=== PATIENT | female | born 1965 | race Caucasian/White ===

== ENCOUNTER 2017-07-18 15:47 | Emergency (ER) | payer OTHER, MEDICARE ==
[~2017-07-18] VITALS: Ht 185.4 cm; Wt 124.0 kg
[~2017-07-18 15:47] MED LIST: ALDACTONE25 MG PO; ALPR.25T PO; CETI5TAB25 PO; DESV50TA PO; DULO30CA PO; FLUT16SP22 NS; GABA300C; GBPN300C PO; GENOVIA; HYDR50CA3; INSU100I16 SQ; LISI10TA PO; LOVA40TA45; METF-380; MONT10TA21 PO; MTF500T PO; NF-ESOM40C PO; NF-VAL40T PO; SRTR100T
--- OUTSIDE RECORDS SUMMARY | 2017-07-18 15:53 | XMS REPORT ---
Author Author Bacilio Ga [facility] eClinicalWorks Address Unknown Phone Unavailable Care Team Providers Care Meat Sales And Storage Manager Name Role Phone Bacilio Ga CP Unavailable Allergies No Known Allergies Problems Problem Type Condition Code Onset Dates Condition Status Problem Esophageal reflux K21.9 Active Problem Anxiety F41.9 Active Problem Asthma J45.909 Active Assessment Diabetes type 1, uncontrolled E10.65 Active Problem Hypertension I10 Active Problem Dermatophytoses B35.9 Active Problem Diabetes type 1, uncontrolled E10.65 Active Problem Borderline personality disorder F60.3 Active Problem HLD (hyperlipidemia) E78.5 Active Problem JULIA (obstructive sleep apnea) G47.33 Active Problem Bipolar 1 disorder F31.9 Active Medications Medication Code System Code Instructions Start Date End Date Status Dosage Albuterol NDC 0 90 MCG/ACT Inhalation not defined Lantus SoloStar [facility] [address]-37 100 UNIT/ML Subcutaneous once daily use to inject 80 units NovoLog Flexpen [facility] [address]-49 100 UNIT/ML Subcutaneous three times daily Feb 26, 2015 per sliding scale with max of 20 units per injection Diovan HCT [facility] [address]-60 160-25 MG Orally Once a day 1 tablet Diabetic.[email or web address] Test [facility] [address]-31 1 Pack In Vitro PRN Dec 20, 2014 as directed Nexium [facility] [address]-24 40 MG Orally Once a day October 05, 2014 1 capsule HydrOXYzine HCl [facility] [address]-29 25 MG Orally three times a day 1 tablet Spironolactone [facility] [address]-02 25 MG Orally Twice a day 1 tablet Diabetic Sterile Lancets NDC 0 1 Pack in vitro PRN Dec 20, 2014 as directed Results No Known Results Summary Purpose eClinicalWorks Submission
--- OUTSIDE RECORDS SUMMARY | 2017-07-18 15:53 | XMS REPORT ---
Author Author Bacilio Ga Organization eClinicalWorks Address Unknown Phone Unavailable Care Team Providers Care Kennel Aide Name Role Phone Bacilio Ga CP Unavailable Allergies No Known Allergies Problems Problem Type Condition Code Onset Dates Condition Status Problem Esophageal reflux K21.9 Active Problem Anxiety F41.9 Active Problem Asthma J45.909 Active Assessment Anxiety F41.9 Active Problem Hypertension I10 Active Problem Dermatophytoses B35.9 Active Problem Diabetes type 1, uncontrolled E10.65 Active Problem Borderline personality disorder F60.3 Active Problem HLD (hyperlipidemia) E78.5 Active Problem JULIA (obstructive sleep apnea) G47.33 Active Problem Bipolar 1 disorder F31.9 Active Medications Medication Code System Code Instructions Start Date End Date Status Dosage NovoLog Flexpen [facility] [address]-88 100 UNIT/ML Subcutaneous 3 times daily as needed with sliding scale Oct 13, 2014 as directed [email or web address] Test [facility] [address]-59 1 Pack In Vitro PRN Dec 20, 2014 as directed Spironolactone [facility] [address]-37 25 MG Orally Twice a day 1 tablet HydrOXYzine HCl [facility] [address]-62 25 MG Orally three times a day 1 tablet Lantus SoloStar [facility] [address]-59 100 UNIT/ML Subcutaneous once daily use to inject 80 units Diabetic Sterile Lancets NDC 0 1 Pack in vitro PRN Dec 20, 2014 as directed Nexium [facility] [address]-21 40 MG Orally Once a day October 05, 2014 [address] [place] [address]-05 160-25 MG Orally Once a day 1 tablet Albuterol ND 0 90 MCG/ACT Inhalation not defined Results No Known Results Summary Purpose eClinicalWorks Submission
--- OUTSIDE RECORDS SUMMARY | 2017-07-18 15:53 | XMS REPORT ---
Author Author Bacilio Ga Organization eClinicalWorks Address Unknown Phone Unavailable Care Team Providers Care Nip Wrapper Name Role Phone Bacilio Ga CP Unavailable [...] Instructions Start Date End Date Status Dosage Diabetic.com Test [facility] [address]-70 1 Pack In Vitro PRN Dec 20, 2014 as directed Lantus SoloStar [facility] [address]-35 100 UNIT/ML Subcutaneous once daily use to inject 80 units NovoLog Flexpen [facility] [address]-62 100 UNIT/ML Subcutaneous 3 times daily as needed with sliding scale Oct 13, 2014 as directed HydrOXYzine HCl [facility] 54167399375 25 MG TAKE ONE TABLET BY MOUTH THREE TIMES DAILY Diabetic Sterile Lancets NDC 0 1 Pack in vitro PRN Dec 20, 2014 as directed Spironolactone [facility] [address]-45 25 MG Orally Twice a day 1 tablet Diovan HCT [facility] [address]-12 160-25 MG Orally Once a day 1 tablet Nexium [facility] [address]-95 40 MG Orally Once a day October 05, 2014 1 capsule Albuterol ND 0 90 MCG/ACT Inhalation not defined Results No Known Results Summary Purpose eClinicalWorks Submission
--- OUTSIDE RECORDS SUMMARY | 2017-07-18 15:53 | XMS REPORT ---
Author Author Bacilio Ga [facility] eClinicalWorks Address Unknown Phone Unavailable Care Team Providers Care Mental Health Social Worker Name Role Phone Bacilio Ga CP Unavailable Allergies No Known Allergies Problems Problem Type Condition Code Onset Dates Condition Status Problem Esophageal reflux K21.9 Active Problem Anxiety F41.9 Active Problem Asthma J45.909 Active Problem Hypertension I10 Active Problem Dermatophytoses B35.9 Active Problem Diabetes type 1, uncontrolled E10.65 Active Problem Borderline personality disorder F60.3 Active Problem HLD (hyperlipidemia) E78.5 Active Problem JULIA (obstructive sleep apnea) G47.33 Active Problem Bipolar 1 disorder F31.9 Active Medications No Known Medications Results No Known Results Summary Purpose eClinicalWorks Submission
--- OUTSIDE RECORDS SUMMARY | 2017-07-18 15:53 | XMS REPORT | Clinical Summary ---
Author [facility] Address Unknown Phone Unavailable Care Team Providers Care Sharepoint Engineer Name Role Phone PP Unavailable Allergies Active Allergy Reactions Severity Noted Date Comments Cephalexin Rash Low 10/29/2010 Doxycycline Rash Low 10/29/2010 Sumatriptan Base Shortness Of Breath High 10/29/2010 Penicillins Anaphylaxis High 10/29/2010 Current Medications Prescription Sig. Disp. Refills Start End Date Status Date spironolactone Take 25 mg by mouth 2 10/30/19 Active (ALDACTONE) 25 MG tablet (two) times daily. 11 omeprazole (PRILOSEC) 20 Take 20 mg by mouth 2 10/30/19 Active MG capsule (two) times daily before 11 meals. montelukast (SINGULAIR) Take 10 mg by mouth 10/30/19 Active 10 MG tablet daily. 11 losartan (COZAAR) 50 MG Take 25 mg by mouth 10/30/19 Active tablet daily. 11 metformin (GLUCOPHAGE) Take 500 mg by mouth 2 10/30/19 Active 500 MG tablet (two) times daily with 11 meals. gabapentin (NEURONTIN) Take 300 mg by mouth 2 10/30/19 Active 300 MG capsule (two) times daily. 11 cetirizine (ZYRTEC) 10 MG Take 10 mg by mouth 10/30/19 Active tablet daily. 11 Cholecalciferol (VITAMIN Take 4 tablets by mouth 30 tablet 0 12/05/19 Active D) 1000 UNIT TABS daily. 11 Active Problems Problem Noted Date Bipolar affective disorder, manic (HCC) 10/30/2010 PTSD (post-traumatic stress disorder) 10/30/2010 DM (diabetes mellitus), type 2 (HCC) 10/30/2010 Neuropathy in diabetes (HCC) 10/30/2010 GERD (gastroesophageal reflux disease) 10/30/2010 HTN (hypertension) 10/30/2010 Asthma 10/30/2010 Obesity 10/30/2010 Wounds and injuries 10/30/2010 Resolved Problems Problem Noted Date Resolved Date Suicidal ideation 10/30/2010 11/05/2010 Social History Tobacco Use Types Packs/Day Years Used Date Never Smoker Alcohol Use Drinks/Week oz/Week Comments Yes 0 Glasses of 9.6 wine 0 Cans of beer 16 Shots of liquor Sex Assigned at Date Recorded Not on file Last Filed Vital Signs Vital Sign Reading Time Taken Blood Pressure 115/57 12/03/2010 6:00 AM CDT Pulse 67 12/03/2010 6:00 AM CDT Temperature 36.8 C (98.3 F) 12/03/2010 6:00 AM CDT Respiratory Rate 16 12/03/2010 6:00 AM CDT Oxygen Saturation 99% 10/29/2010 7:00 PM CDT Inhaled Oxygen - - Concentration Weight 115.7 kg (255 lb) 12/01/2010 6:44 PM CDT Height 182.9 cm (6') 12/01/2010 6:44 PM CDT Body Mass Index 34.58 12/01/2010 6:44 PM CDT Plan of Treatment Health Maintenance Due Date Last Done Comments Hepatitis C Screening 1964 DTaP,Tdap,and Td Vaccines 07/10/1983 (1 - Tdap) CERVICAL CANCER SCREENING 1985 Breast Cancer 2014 Screening-Mammogram Colon Cancer Screening 2014 Zoster Recombinant 2014 Vaccine (RZV,Shingrix) (1 of 2 - [facility] 2 Dose Standard) Influenza Vaccine (Season 11/06/2017 Ended) Results Not on filefrom Last 3 Months
--- OUTSIDE RECORDS SUMMARY | 2017-07-18 15:53 | XMS REPORT ---
Author Author Glenny Oh [facility] eClinicalWorks Address Unknown Phone Unavailable Care Team Providers Care Cathode Maker Name Role Phone Glenny Oh Unavailable Allergies No Known Allergies Problems Problem Type Condition Code Onset Dates Condition Status Problem Dermatophytosis of nail 110.1 Active Problem Benign paroxysmal positional vertigo 386.11 Active Problem Unspecified sleep apnea 780.57 Active Problem HLD (hyperlipidemia) 272.4 Active Problem Hypertension 401.9 Active Problem Chest pain 786.50 Active Problem Other and unspecified hyperlipidemia 272.4 Active Problem Unspecified myalgia and myositis 729.1 Active Problem Diabetes type 1, uncontrolled 250.03 Active Problem Unspecified essential hypertension 401.9 Active Problem Asthma, unspecified, unspecified status 493.90 Active Problem Esophageal reflux 530.81 Active Problem Bipolar disorder, unspecified 296.80 Active Problem Anxiety state, unspecified 300.00 Active Problem Borderline personality disorder 301.83 Active Medications Medication Code System Code Instructions Start Date End Date Status Dosage Diabetic.com Test [facility] [address]-63 1 Pack In Vitro PRN Dec 20, 2014 as directed Diabetic Sterile Lancets ND 0 1 Pack in vitro PRN Dec 20, 2014 as directed Results No Known Results Summary Purpose eClinicalWorks Submission
--- OUTSIDE RECORDS SUMMARY | 2017-07-18 15:54 | XMS REPORT ---
Author Author Harriett Alcantara Organization eClinicalWorks Address Unknown Phone Unavailable Care Team Providers Care Director It Project Name Role Phone Harriett Alcantara CP Unavailable Allergies No Known Allergies Problems Problem Type Condition Code Onset Dates Condition Status Problem Esophageal reflux K21.9 Active Problem Anxiety F41.9 Active Problem Asthma J45.909 Active Assessment Depression, major, recurrent, moderate F33.1 Active Assessment Borderline personality disorder F60.3 Active Problem Hypertension I10 Active Problem Dermatophytoses B35.9 Active Problem Diabetes type 1, uncontrolled E10.65 Active Problem Borderline personality disorder F60.3 Active Problem HLD (hyperlipidemia) E78.5 Active Problem JULIA (obstructive sleep apnea) G47.33 Active Problem Bipolar 1 disorder F31.9 Active Medications Medication Code System Code Instructions Start Date End Date Status Dosage Diabetic.com Test [facility] [address]-50 1 Pack In Vitro PRN Dec 20, 2014 as directed Diabetic Sterile Lancets NDC 0 1 Pack in vitro PRN Dec 20, 2014 as directed NovoLog Flexpen [facility] [address]-14 100 UNIT/ML Subcutaneous 3 times daily as needed with sliding scale Oct 13, 2014 as directed Nexium [facility] [address]-70 40 MG Orally Once a day October 05, 2014 1 capsule Spironolactone [facility] [address]-69 25 MG Orally Twice a day 1 tablet Diovan HCT [facility] [address]-91 160-25 MG Orally Once a day 1 tablet HydrOXYzine HCl [facility] 58847412245 25 MG TAKE ONE TABLET BY MOUTH THREE TIMES DAILY Lantus SoloStar [facility] [address]-13 100 UNIT/ML Subcutaneous twice daily use to inject 75 units Procedures Procedure Coding System Code Date Multiple services provided same day adj 2nd copay CPT-4 INTEG Dec 25, 2014 Results No Known Results Summary Purpose eClinicalWorks Submission
--- OUTSIDE RECORDS SUMMARY | 2017-07-18 15:54 | XMS REPORT ---
Author Author Glenny Oh Organization eClinicalWorks Address Unknown Phone Unavailable Care Team Providers Care Pasting Inspector Name Role Phone Glenny Oh Unavailable Allergies [...] 493.90 Active Problem Esophageal reflux 530.81 Active Assessment Diabetes type 1, uncontrolled 250.03 Active Problem Bipolar disorder, unspecified 296.80 Active Problem Anxiety state, unspecified 300.00 Active Problem Borderline personality disorder 301.83 Active Medications Medication Code System Code Instructions Start Date End Date Status Dosage HydrOXYzine HCl [facility] 17779954104 25 MG TAKE ONE TABLET BY MOUTH THREE TIMES DAILY Lantus SoloStar [facility] [address]-37 100 UNIT/ML Subcutaneous twice daily use to inject 75 units Diabetic Sterile Lancets ND 0 1 Pack in vitro PRN Dec 20, 2014 as directed Diabetic.com Test [facility] [address]-31 1 Pack In Vitro PRN Dec 20, 2014 as directed Diovan HCT [facility] [address]-57 160-25 MG Orally Once a day 1 tablet Spironolactone [facility] [address]-36 25 MG Orally Twice a day 1 tablet Nexium [facility] [address]-63 40 MG Orally Once a day October 05, 2014 1 capsule NovoLog Flexpen [facility] [address]-38 100 UNIT/ML Subcutaneous 3 times daily as needed with sliding scale Oct 13, 2014 as directed Results No Known Results Summary Purpose eClinicalWorks Submission
--- OUTSIDE RECORDS SUMMARY | 2017-07-18 15:54 | XMS REPORT ---
Author Bacilio Beltran [facility] eClinicalWorks Address Unknown Phone Unavailable Care Team Providers Care Mortgage Processor Name Role Phone Bacilio Ga CP Unavailable Allergies, Adverse Reactions, Alerts Substance Reaction Event Type Sumatriptan Info Not Available Drug Allergy Seroquel Info Not Available Drug Allergy Imitrex Info Not Available Drug Allergy Cephalexin Info Not Available Drug Allergy Doxycycline Info Not Available Drug Allergy Penicillins Info Not Available Non Drug Allergy Problems Problem Type Condition Code Onset Dates Condition Status Problem Esophageal reflux K21.9 Active Problem Anxiety F41.9 Active Problem Asthma J45.909 Active Problem Hypertension I10 Active Problem Dermatophytoses B35.9 Active Problem Diabetes type 1, uncontrolled E10.65 Active Problem Borderline personality disorder F60.3 Active Problem HLD (hyperlipidemia) E78.5 Active Problem JULIA (obstructive sleep apnea) G47.33 Active Problem Bipolar 1 disorder F31.9 Active Assessment Hypertension I10 Active Assessment Tinea B35.9 Active Assessment Diabetes type 1, uncontrolled E10.65 Active Medications Medication Code System Code Instructions Start Date End Date Status Dosage Nexium [facility] [address]-84 40 MG Orally Once a day October 05, 2014 [address] [facility] [address]-31 25 MG Orally Twice a day 1 tablet Albuterol ND 0 90 MCG/ACT Inhalation not defined Lantus SoloStar [facility] [address]-00 100 UNIT/ML Subcutaneous daily use to inject 80 units Diabetic.com Test [facility] [address]-58 1 Pack In Vitro PRN Dec 20, 2014 as directed Diabetic Sterile Lancets NDC 0 1 Pack in vitro PRN Dec 20, 2014 as directed Diovan HCT [facility] [address]-34 160-25 MG Orally Once a day [address]oLog Flexpen [facility] [address]-29 100 UNIT/ML Subcutaneous 3-4 times daily with meals Oct 13, 2014 24 units HydrOXYzine HCl [facility] 99812644266 25 MG TAKE ONE TABLET BY MOUTH THREE TIMES DAILY Procedures Procedure Coding System Code Date Charge billed by Lab CPT-4 NOBIL Dec 25, 2014 OFFICE OUTPATIENT VISIT EST OFFICE OR OTHER OUTPATIENT VISIT FOR THE EVALUATION AND MANAGEMENT OF AN ESTABLISHED PATIENT, WHICH REQUIRES AT LEAST 2 OF THESE 3 WICK COMPONENTS, AN EXPANDED PROBLEM FOCUSED HISTORY,AN EXPANDED PROBLEM FOCUSED EXAMINATION CPT-4 75556 Dec 25, 2014 GLYCOSYLATED HEMOGLOBIN TEST HEMOGLOBIN; GLYCOSYLATED (A1C) CPT-4 79387 Dec 25, 2014 Vital Signs Date/Time: Dec 25, 2014 Blood Pressure Systolic 132 mm Hg Cardiac Monitoring Heart Rate 92 /min Temperature 98.4 F BMI 38.01 Index Weight 280.3 lbs Height 72 in Blood Pressure Diastolic 68 mm Hg Results Name Result Date Reference Range Unit Abnormality Flag Hemoglobin A1c Summary Purpose eClinicalWorks Submission
--- OUTSIDE RECORDS SUMMARY | 2017-07-18 15:54 | XMS REPORT ---
Author Author Bacilio Ga Organization eClinicalWorks Address Unknown Phone Unavailable Care Team Providers Care Agricultural Extension Agent Name Role Phone Bacilio Ga CP Unavailable [...] Instructions Start Date End Date Status Dosage Spironolactone [facility] [address]-08 25 MG Orally Twice a day 1 tablet Diabetic.com Test [facility] [address]-99 1 Pack In Vitro PRN Dec 20, 2014 [place] [address]-37 160-25 MG Orally Once a day 1 [place] [address]-31 100 UNIT/ML Subcutaneous 3 times daily as needed with sliding scale Oct 13, 2014 [place] [address]-34 40 MG Orally Once a day October 05, 2014 1 capsule Diabetic Sterile Lancets NDC 0 1 Pack in vitro PRN Dec 20, 2014 as directed Albuterol ND 0 90 MCG/ACT Inhalation [place] [address]-83 100 UNIT/ML Subcutaneous once daily use to inject 80 [place] [address]-33 25 MG Orally three times a day 1 tablet Results No Known Results Summary Purpose eClinicalWorks Submission
--- OUTSIDE RECORDS SUMMARY | 2017-07-18 15:54 | XMS REPORT ---
Author Author Bacilio Ga [facility] eClinicalWorks Address Unknown Phone Unavailable Care Team Providers Care Machine Rope Maker Name Role Phone Bacilio Ga CP Unavailable [...]
--- OUTSIDE RECORDS SUMMARY | 2017-07-18 15:59 | XMS REPORT | Continuity of Care Document ---
Author Author [facility] Address Unknown Phone Unavailable Allergies Active Description Code Type Severity Reaction Onset Reported/Identified Relationship to Patient Clinical Status Yes cephalexin [id number] Drug Allergy Unknown N/A 04/07/2005 Yes clindamycin [id number] Drug Allergy Unknown N/A 04/07/2005 Yes doxycycline [id number] Drug Allergy Unknown N/A 04/07/2005 Yes furosemide [id number] Drug Allergy Unknown N/A 04/07/2005 Yes penicillin G [id number] Drug Allergy Unknown N/A 04/07/2005 Yes cephalexin Drug Allergy N/A N/A 05/14/2008 Yes doxycycline Drug Allergy N/A N/A 05/14/2008 Yes Imitrex Drug Allergy N/A N/A 05/14/2008 Yes Levaquin Drug Allergy N/A N/A 05/14/2008 Yes nitrofurantoin Drug Allergy N /A N/A 05/14/2008 Yes Penicillins Drug Allergy N/A N/A 05/14/2008 Yes cephalexin Drug Allergy 05/14/2008 Yes doxycycline Drug Allergy 05/14/2008 Yes Imitrex Drug Allergy 05/14/2008 Yes Levaquin Drug Allergy 05/14/2008 Yes nitrofurantoin Drug Allergy 05/14/2008 Yes Penicillins Drug Allergy 05/14/2008 Yes Cogentin Drug Allergy N/A N/A 08/30/2008 Yes Concerta Drug Allergy N/A N/A 08/30/2008 Yes Haldol Drug Allergy N/A N/A 08/30/2008 Yes Inderal Drug Allergy N/A N/A 08/30/2008 Yes Cogentin Drug Allergy 08/30/2008 Yes Concerta Drug Allergy 08/30/2008 Yes Haldol Drug Allergy 08/30/2008 Yes Inderal Drug Allergy 08/30/2008 Yes Penicillins [id number] Drug Allergy Moderate EDEMA, HIVES 09/17/2008 Yes CEFALEXIN CEFALEXIN Mild EDEMA 09/17/2008 Yes TERAMYCIN TERAMYCIN Mild EDEMA 09/17/2008 Yes Abilify Drug Allergy N/A N/A 04/04/2009 Yes Abilify Drug Allergy 04/04/2009 Yes Risperdal Drug Allergy 04/04/2009 Yes Cozaar Drug Allergy N/A N/A 02/17/2011 Yes Cozaar Drug Allergy 02/17/2011 Yes Mononessa (28) Drug Allergy N /A N/A 05/26/2011 Yes Mononessa (28) Drug Allergy 05/26/2011 Yes Codeine Drug Allergy N/A N/A 03/11/2012 Yes Codeine Drug Allergy 03/11/2012 Yes lactose Drug Allergy N/A N/A 03/14/2012 Yes lactose Drug Allergy 03/14/2012 Yes seroquel Drug Allergy 04/01/2012 Yes Cephalexin Drug Allergy N/A N/A 06/29/2012 Yes doxycycline Drug Allergy N/A N/A 06/29/2012 Yes Penicillins Drug Allergy N/A N/A 06/29/2012 Yes Seroquel Drug Allergy N/A N/A 06/29/2012 Yes sumatriptan Drug Allergy N/A N/A 06/29/2012 Yes quetiapine fumarate [id number] Drug Allergy Mild N/A 08/22/2012 Yes aripiprazole [id number] Drug Allergy Unknown N/A 03/26/2014 Yes benztropine [id number] Drug Allergy Unknown N/A 03/26/2014 Yes haloperidol [id number] Drug Allergy Unknown N/A 03/26/2014 Yes IMIT IMIT Unknown N/A 03/26/2014 Yes isosorbide [id number] Drug Allergy Unknown N/A 03/26/2014 Yes levofloxacin [id number] Drug Allergy Unknown N/A 03/26/2014 Yes methylphenidate [id number] Drug Allergy Unknown N/A 03/26/2014 Yes nitrofurantoin [id number] Drug Allergy Unknown N/A 03/26/2014 Medications There is no data. Problems Date Dx Coded Attending Type Code Diagnosis Diagnosed By 10/17/2007 GAUDENCIO STEWART DO 250.00 DIABETES MELLITUS 10/17/2007 GAUDENCIO STEWART DO 616.10 Vaginitis And Vulvovaginitis Unspecified 10/17/2007 STEWART DO, GAUDENCIO K V05.3 Hepatitis Viral/all 10/17/2007 STEWART DO, GAUDENCIO K 250.00 DIABETES MELLITUS 10/17/2007 TERRY ISBELL, GAUDENCIO K 616.10 Vaginitis And Vulvovaginitis Unspecified 10/17/2007 TERRY ISBELL, GAUDENCIO K V05.3 Hepatitis Viral/all 10/17/2007 STEWART , GAUDENCIO K 250.00 DIABETES MELLITUS 10/17/2007 TERRY ISBELL, GAUDENCIO K 616.10 Vaginitis And Vulvovaginitis Unspecified 10/17/2007 TERRY ISBELL, GAUDENCIO K V05.3 Hepatitis Viral/all 10/17/2007 250.00 DIABETES MELLITUS 10/17/2007 616.10 Vaginitis And Vulvovaginitis Unspecified 10/17/2007 V05.3 Hepatitis Viral/all 10/17/2007 MUOGHALU DDS, LESLIE N 250.00 DIABETES MELLITUS 10/17/2007 MUOGHALU DDS, LESLIE N 616.10 Vaginitis And Vulvovaginitis Unspecified 10/17/2007 MUOGHALU DDS, LESLIE N V05.3 Hepatitis Viral/all 10/17/2007 250.00 DIABETES MELLITUS 10/17/2007 616.10 Vaginitis And Vulvovaginitis Unspecified 10/17/2007 V05.3 Hepatitis Viral/all 10/17/2007 TERRY ISBELL, GAUDENCIO K 250.00 DIABETES MELLITUS 10/17/2007 TERRY ISBELL, GAUDENCIO K 616.10 Vaginitis And Vulvovaginitis Unspecified 10/17/2007 TERRY ISBELL GAUDENCIO K V05.3 Hepatitis Viral/all 10/17/2007 TERRY ISBELL, GAUDENCIO K 250.00 DIABETES MELLITUS 10/17/2007 TERRY ISBELL, GAUDENCIO K 616.10 Vaginitis And Vulvovaginitis Unspecified 10/17/2007 TERRY ISBELL GAUDENCIO K V05.3 Hepatitis Viral/all 10/17/2007 TERRY ISBELL GAUDENCIO K 250.00 DIABETES MELLITUS 10/17/2007 TERRY ISBELL, GAUDENCIO K 616.10 Vaginitis And Vulvovaginitis Unspecified 10/17/2007 TERRY ISBELL GAUDENCIO K V05.3 Hepatitis Viral/all 10/17/2007 250.00 DIABETES MELLITUS 10/17/2007 616.10 Vaginitis And Vulvovaginitis Unspecified 10/17/2007 V05.3 Hepatitis Viral/all 10/17/2007 TERRY ISBELL GAUDENCIO K 250.00 DIABETES MELLITUS 10/17/2007 COLLEEN STEWART DOA K 616.10 Vaginitis And Vulvovaginitis Unspecified 10/17/2007 TERRY ISBELL GAUDENCIO K V05.3 Hepatitis Viral/all 01/31/2008 TERRY ISBELL GAUDENCIO K 826.0 Closed Fracture Of One Or More Phalanges Of Foot 01/31/2008 TERRY DO, GAUDENCIO K 826.0 Closed Fracture Of One Or More Phalanges Of Foot 01/31/2008 STEWART DO, GAUDENCIO K 826.0 Closed Fracture Of One Or More Phalanges Of Foot 01/31/2008 826.0 Closed Fracture Of One Or More Phalanges Of Foot 01/31/2008 [facility], LESLIE N 826.0 Closed Fracture Of One Or More Phalanges Of Foot 01/31/2008 826.0 Closed Fracture Of One Or More Phalanges Of Foot 01/31/2008 TERRY ISBELL, GAUDENCIO K 826.0 Closed Fracture Of One Or More Phalanges Of Foot 01/31/2008 STEWART DO, GAUDENCIO K 826.0 Closed Fracture Of One Or More Phalanges Of Foot 01/31/2008 STEWART DO, GAUDENCIO K 826.0 Closed Fracture Of One Or More Phalanges Of Foot 01/31/2008 826.0 Closed Fracture Of One Or More Phalanges Of Foot 01/31/2008 STEWART DO, GAUDENCIO K 826.0 Closed Fracture Of One Or More Phalanges Of Foot 02/13/2008 COLLEEN STEWART DOA K 250.02 DIABETES MELLITUS POORLY CONTROLLED 02/13/2008 TERRY ISBELL GAUDENCIO K 780.79 Feelings Of Weakness 02/13/2008 TERRY ISBELL, GAUDENCIO K 250.02 DIABETES MELLITUS POORLY CONTROLLED 02/13/2008 TERRY ISBELL GAUDENCIO K 780.79 Feelings Of Weakness 02/13/2008 TERRY ISBELL, GAUDENCIO K 250.02 DIABETES MELLITUS POORLY CONTROLLED 02/13/2008 TERRY ISBELL, GAUDENCIO K 780.79 Feelings Of Weakness 02/13/2008 250.02 DIABETES MELLITUS POORLY CONTROLLED 02/13/2008 780.79 Feelings Of Weakness 02/13/2008 MUHAL[facility] DDS, LESLIE N 250.02 DIABETES MELLITUS POORLY CONTROLLED 02/13/2008 MUOGHALU DDS, LESLIE N 780.79 Feelings Of Weakness 02/13/2008 250.02 DIABETES MELLITUS POORLY CONTROLLED 02/13/2008 780.79 Feelings Of Weakness 02/13/2008 STEWART DO, GAUDENCIO K 250.02 DIABETES MELLITUS POORLY CONTROLLED 02/13/2008 STEWART DO, GAUDENCIO K 780.79 Feelings Of Weakness 02/13/2008 STEWART DO, GAUDENCIO K 250.02 DIABETES MELLITUS POORLY CONTROLLED 02/13/2008 STEWART DO, GAUDENCIO K 780.79 Feelings Of Weakness 02/13/2008 STEWART DO, GAUDENCIO K 250.02 DIABETES MELLITUS POORLY CONTROLLED 02/13/2008 STEWART DO, GAUDENCIO K 780.79 Feelings Of Weakness 02/13/2008 250.02 DIABETES MELLITUS POORLY CONTROLLED 02/13/2008 780.79 Feelings Of Weakness 02/13/2008 STEWART DO, GAUDENCIO K 250.02 DIABETES MELLITUS POORLY CONTROLLED 02/13/2008 STEWART DO, GAUDENCIO K 780.79 Feelings Of Weakness 03/23/2008 STEWART DO GAUDENCIO K 054.10 HERPES SIMPLEX GENITAL 03/23/2008 STEWART DO GAUDENCIO K V69.2 Sexually Active, Frequently With New Partners 03/23/2008 STEWART DO GAUDENCIO K 054.10 HERPES SIMPLEX GENITAL 03/23/2008 STEWART DO, GAUDENCIO K V69.2 Sexually Active, Frequently With New Partners 03/23/2008 STEWART DO GAUDENCIO K 054.10 HERPES SIMPLEX GENITAL 03/23/2008 STEWART DO, GAUDENCIO K V69.2 Sexually Active, Frequently With New Partners 03/23/2008 054.10 HERPES SIMPLEX GENITAL 03/23/2008 V69.2 Sexually Active, Frequently With New Partners 03/23/2008 [facility] DDS, LESLIE N 054.10 HERPES SIMPLEX GENITAL 03/23/2008 [facility] DDS, LESLIE N V69.2 Sexually Active, Frequently With New Partners 03/23/2008 054.10 HERPES SIMPLEX GENITAL 03/23/2008 V69.2 Sexually Active, Frequently With New Partners 03/23/2008 STEWART DO GAUDENCIO K 054.10 HERPES SIMPLEX GENITAL 03/23/2008 STEWART DO, GAUDENCIO K V69.2 Sexually Active, Frequently With New Partners 03/23/2008 STEWART DO GAUDENCIO K 054.10 HERPES SIMPLEX GENITAL 03/23/2008 STEWART DO GAUDENCIO K V69.2 Sexually Active, Frequently With New Partners 03/23/2008 STEWART DO, GAUDENCIO K 054.10 HERPES SIMPLEX GENITAL 03/23/2008 STEWART DO, GAUDENCIO K V69.2 Sexually Active, Frequently With New Partners 03/23/2008 054.10 HERPES SIMPLEX GENITAL 03/23/2008 V69.2 Sexually Active, Frequently With New Partners 03/23/2008 STEWART DO, GAUDENCIO K 054.10 HERPES SIMPLEX GENITAL 03/23/2008 STEWART DO, GAUDENCIO K V69.2 Sexually Active, Frequently With New Partners 04/04/2008 STEWART DO, GAUDENCIO K 599.0 Urinary Tract Infection 04/04/2008 STEWART DO, GAUDENCIO K 599.0 Urinary Tract Infection 04/04/2008 STEWART DO, GAUDENCIO K 599.0 Urinary Tract Infection 04/04/2008 599.0 Urinary Tract Infection 04/04/2008 MATT PARRA, LESLIE N 599.0 Urinary Tract Infection 04/04/2008 599.0 Urinary Tract Infection 04/04/2008 STEWART DO, GAUDENCIO K 599.0 Urinary Tract Infection 04/04/2008 STEWART DO, GAUDENCIO K 599.0 Urinary Tract Infection 04/04/2008 STEWART DO, GAUDENCIO K 599.0 Urinary Tract Infection 04/04/2008 599.0 Urinary Tract Infection 04/04/2008 STEWART DO, GAUDENCIO K 599.0 Urinary Tract Infection 05/14/2008 STEWART DO, GAUDENCIO K 729.5 Pain In Limb 05/14/2008 STEWART DO, GAUDENCIO K 729.5 Pain In Limb 05/14/2008 STEWART DO, GAUDENCIO K 729.5 Pain In Limb 05/14/2008 729.5 Pain In Limb 05/14/2008 MATT DUMONTS, LESLIE N 729.5 Pain In Limb 05/14/2008 729.5 Pain In Limb 05/14/2008 STEWART DO, GAUDENCIO K 729.5 Pain In Limb 05/14/2008 STEWART DO, GAUDENCIO K 729.5 Pain In Limb 05/14/2008 STEWART DO, GAUDENCIO K 729.5 Pain In Limb 05/14/2008 729.5 Pain In Limb 05/14/2008 STEWART DO, GAUDENCIO K 729.5 Pain In Limb 07/03/2008 STEWART DO, GAUDENCIO K 528.00 Stomatitis 07/03/2008 STEWART DO, GAUDENCIO K 530.81 Esophageal Reflux 07/03/2008 STEWART DO, GAUDENCIO K 564.1 Irritable Bowel Syndrome 07/03/2008 STEWART DO, GAUDENCIO K 528.00 Stomatitis 07/03/2008 STEWART DO, GAUDENCIO K 530.81 Esophageal Reflux 07/03/2008 STEWART DO, GAUDENCIO K 564.1 Irritable Bowel Syndrome 07/03/2008 STEWART DO, GAUDENCIO K 528.00 Stomatitis 07/03/2008 STEWART DO, GAUDENCIO K 530.81 Esophageal Reflux 07/03/2008 STEWART DO, GAUDENCIO K 564.1 Irritable Bowel Syndrome 07/03/2008 528.00 Stomatitis 07/03/2008 530.81 Esophageal Reflux 07/03/2008 564.1 Irritable Bowel Syndrome 07/03/2008 MUOGHALU DDS, LESLIE N 528.00 Stomatitis 07/03/2008 MUOGHALU DDS, LESLIE N 530.81 Esophageal Reflux 07/03/2008 MUOGHALU DDS, LESLIE N 564.1 Irritable Bowel Syndrome 07/03/2008 528.00 Stomatitis 07/03/2008 530.81 Esophageal Reflux 07/03/2008 564.1 Irritable Bowel Syndrome 07/03/2008 STEWART DO, GAUDENCIO K 528.00 Stomatitis 07/03/2008 STEWART DO, GAUDENCIO K 530.81 Esophageal Reflux 07/03/2008 STEWART DO, GAUDENCIO K 564.1 Irritable Bowel Syndrome 07/03/2008 STEWART DO, GAUDENCIO K 528.00 Stomatitis 07/03/2008 STEWART DO, GAUDENCIO K 530.81 Esophageal Reflux 07/03/2008 STEWART DO, GAUDENCIO K 564.1 Irritable Bowel Syndrome 07/03/2008 STEWART DO, GAUDENCIO K 528.00 Stomatitis 07/03/2008 STEWART DO, GAUDENCIO K 530.81 Esophageal Reflux 07/03/2008 STEWART DO, GAUDENCIO K 564.1 Irritable Bowel Syndrome 07/03/2008 528.00 Stomatitis 07/03/2008 530.81 Esophageal Reflux 07/03/2008 564.1 Irritable Bowel Syndrome 07/03/2008 STEWART DO, GAUDENCIO K 528.00 Stomatitis 07/03/2008 STEWART DO, GAUDENCIO K 530.81 Esophageal Reflux 07/03/2008 STEWART DO, GAUDENCIO K 564.1 Irritable Bowel Syndrome 08/30/2008 STEWART DO, GAUDENCIO K V72.31 Monitoring Specialist Exam, Routine 08/30/2008 STEWART DO, GAUDENCIO K V72.31 Monitoring Specialist Exam, Routine 08/30/2008 STEWART DO, GAUDENCIO K V72.31 Monitoring Specialist Exam, Routine 08/30/2008 V72.31 Monitoring Specialist Exam, Routine 08/30/2008 MUOGHALU DDS, LESLIE N V72.31 Monitoring Specialist Exam, Routine 08/30/2008 V72.31 Monitoring Specialist Exam, Routine 08/30/2008 STEWART DO, GAUDENCIO K V72.31 Monitoring Specialist Exam, Routine 08/30/2008 STEWART DO, GAUDENCIO K V72.31 Monitoring Specialist Exam, Routine 08/30/2008 STEWART DO, GAUDENCIO K V72.31 Monitoring Specialist Exam, Routine 08/30/2008 V72.31 Monitoring Specialist Exam, Routine 08/30/2008 STEWART DO, GAUDENCIO K V72.31 Monitoring Specialist Exam, Routine 11/08/2008 STEWART DO, GAUDENCIO K 111.0 Pityriasis Versicolor 11/08/2008 STEWART DO, GAUDENCIO K 719.46 Joint Pain, Localized In The Knee 11/08/2008 STEWART DO, GAUDENCIO K 111.0 Pityriasis Versicolor 11/08/2008 STEWART DO, GAUDENCIO K 719.46 Joint Pain, Localized In The Knee 11/08/2008 STEWART DO, GAUDENCIO K 111.0 Pityriasis Versicolor 11/08/2008 STEWART DO, GAUDENCIO K 719.46 Joint Pain, Localized In The Knee 11/08/2008 111.0 Pityriasis Versicolor 11/08/2008 719.46 Joint Pain, Localized In The Knee 11/08/2008 MUOGHALU DDS, LESLIE N 111.0 Pityriasis Versicolor 11/08/2008 MUOGHALU DDS, LESLIE N 719.46 Joint Pain, Localized In The Knee 11/08/2008 111.0 Pityriasis Versicolor 11/08/2008 719.46 Joint Pain, Localized In The Knee 11/08/2008 STEWART DO, GAUDENCIO K 111.0 Pityriasis Versicolor 11/08/2008 STEWART DO, GAUDENCIO K 719.46 Joint Pain, Localized In The Knee 11/08/2008 STEWART DO, GAUDENCIO K 111.0 Pityriasis Versicolor 11/08/2008 STEWART DO, GAUDENCIO K 719.46 Joint Pain, Localized In The Knee 11/08/2008 STEWART DO, GAUDENCIO K 111.0 Pityriasis Versicolor 11/08/2008 STEWART DO, GAUDENCIO K 719.46 Joint Pain, Localized In The Knee 11/08/2008 111.0 Pityriasis Versicolor 11/08/2008 719.46 Joint Pain, Localized In The Knee 11/08/2008 STEWART DO, GAUDENCIO K 111.0 Pityriasis Versicolor 11/08/2008 STEWART DO, GAUDENCIO K 719.46 Joint Pain, Localized In The Knee 11/22/2008 STEWART DO GAUDENCIO K 493.82 Cough Variant Asthma 11/22/2008 STEWART DO GAUDENCIO K 493.82 Cough Variant Asthma 11/22/2008 STEWART DO, GAUDENCIO K 493.82 Cough Variant Asthma 11/22/2008 493.82 Cough Variant Asthma 11/22/2008 LESLIE GUTIERREZ DDS 493.82 Cough Variant Asthma 11/22/2008 493.82 Cough Variant Asthma 11/22/2008 STEWART DO, GAUDENCIO K 493.82 Cough Variant Asthma 11/22/2008 STEWART DO, GAUDENCIO K 493.82 Cough Variant Asthma 11/22/2008 STEWART DO, GAUDENCIO K 493.82 Cough Variant Asthma 11/22/2008 493.82 Cough Variant Asthma 11/22/2008 STEWRAT DO, GAUDENCIO K 493.82 Cough Variant Asthma 01/01/2009 STEWART DO GAUDENCIO K 477.9 Rhinitis 01/01/2009 STEWART DO GAUDENCIO K 709.9 Skin Lesions 01/01/2009 STEWART DO GAUDENCIO K 783.21 Weight Loss 01/01/2009 STEWART DO, GAUDENCIO K 787.1 Heartburn 01/01/2009 STEWART DO, GAUDENCIO K 788.30 Incontinence/enuresis Nos 01/01/2009 STEWART DO, GAUDENCIO K 477.9 Rhinitis 01/01/2009 STEWART DO, GAUDENCIO K 709.9 Skin Lesions 01/01/2009 STEWART DO, GAUDENCIO K 783.21 Weight Loss 01/01/2009 STEWART DO, GAUDENCIO K 787.1 Heartburn 01/01/2009 STEWART DO GAUDENCIO K 788.30 Incontinence/enuresis Nos 01/01/2009 STEWART DO GAUDENCIO K 477.9 Rhinitis 01/01/2009 STEWART DO, GAUDENCIO K 709.9 Skin Lesions 01/01/2009 STEWART DO, GAUDENCIO K 783.21 Weight Loss 01/01/2009 STEWART DO, GAUDENCIO K 787.1 Heartburn 01/01/2009 STEWART DO, GAUDENCIO K 788.30 Incontinence/enuresis Nos 01/01/2009 477.9 Rhinitis 01/01/2009 709.9 Skin Lesions 01/01/2009 783.21 Weight Loss 01/01/2009 787.1 Heartburn 01/01/2009 788.30 Incontinence/ enuresis Nos 01/01/2009 MUOGHALU DDS, LESLIE N 477.9 Rhinitis 01/01/2009 MUOGHALU DDS, LESLIE N 709.9 Skin Lesions 01/01/2009 MUOGHALU DDS, LESLIE N 783.21 Weight Loss 01/01/2009 MUOGHALU DDS, LESLIE N 787.1 Heartburn 01/01/2009 MUOGHALU DDS, LESLIE N 788.30 Incontinence/enuresis Nos 01/01/2009 477.9 Rhinitis 01/01/2009 709.9 Skin Lesions 01/01/2009 783.21 Weight Loss 01/01/2009 787.1 Heartburn 01/01/2009 788.30 Incontinence/ enuresis Nos 01/01/2009 STEWART DO, GAUDENCIO K 477.9 Rhinitis 01/01/2009 STEWART DO, GAUDENCIO K 709.9 Skin Lesions 01/01/2009 STEWART DO, GAUDENCIO K 783.21 Weight Loss 01/01/2009 STEWART DO, GAUDENCIO K 787.1 Heartburn 01/01/2009 STEWART DO, GAUDENCIO K 788.30 Incontinence/enuresis Nos 01/01/2009 STEWART DO, GAUDENCIO K 477.9 Rhinitis 01/01/2009 STEWART DO, GAUDENCIO K 709.9 Skin Lesions 01/01/2009 STEWART DO, GAUDENCIO K 783.21 Weight Loss 01/01/2009 STEWART DO, GAUDENCIO K 787.1 Heartburn 01/01/2009 STEWART DO, GAUDENCIO K 788.30 Incontinence/enuresis Nos 01/01/2009 STEWART DO, GAUDENCIO K 477.9 Rhinitis 01/01/2009 STEWART DO, GAUDENCIO K 709.9 Skin Lesions 01/01/2009 STEWART DO, GAUDENCIO K 783.21 Weight Loss 01/01/2009 STEWART DO, GAUDENCIO K 787.1 Heartburn 01/01/2009 STEWART DO, GAUDENCIO K 788.30 Incontinence/enuresis Nos 01/01/2009 477.9 Rhinitis 01/01/2009 709.9 Skin Lesions 01/01/2009 783.21 Weight Loss 01/01/2009 787.1 Heartburn 01/01/2009 788.30 Incontinence/ enuresis Nos 01/01/2009 STEWART DO, GAUDENCIO K 477.9 Rhinitis 01/01/2009 STEWART DO, GAUDENCIO K 709.9 Skin Lesions 01/01/2009 STEWART DO, GAUDENCIO K 783.21 Weight Loss 01/01/2009 STEWART DO, GAUDENCIO K 787.1 Heartburn 01/01/2009 STEWART DO, GAUDENCIO K 788.30 Incontinence/enuresis Nos 01/11/2009 STEWART DO GAUDENCIO K 836.0 Tear Of Medial Cartilage Or Meniscus Of Knee Current 01/11/2009 STEWART DO GAUDENCIO K 836.0 Tear Of Medial Cartilage Or Meniscus Of Knee Current 01/11/2009 STEWART DO, GAUDENCIO K 836.0 Tear Of Medial Cartilage Or Meniscus Of Knee Current 01/11/2009 836.0 Tear Of Medial Cartilage Or Meniscus Of Knee Current 01/11/2009 MATT PARRA, LESLIE N 836.0 Tear Of Medial Cartilage Or Meniscus Of Knee Current 01/11/2009 836.0 Tear Of Medial Cartilage Or Meniscus Of Knee Current 01/11/2009 STEWART DO GAUDENCIO K 836.0 Tear Of Medial Cartilage Or Meniscus Of Knee Current 01/11/2009 STEWART DO, GAUDENCIO K 836.0 Tear Of Medial Cartilage Or Meniscus Of Knee Current 01/11/2009 STEWART DO, GAUDENCIO K 836.0 Tear Of Medial Cartilage Or Meniscus Of Knee Current 01/11/2009 836.0 Tear Of Medial Cartilage Or Meniscus Of Knee Current 01/11/2009 STEWART DO, GAUDENCIO K 836.0 Tear Of Medial Cartilage Or Meniscus Of Knee Current 01/24/2009 STEWART DO GAUDENCIO K 466.0 Acute Bronchitis 01/24/2009 STEWART DO GAUDENCIO K 536.8 Dyspepsia And Other Specified Disorders Of Function Of Stomach 01/24/2009 STEWART DO, GAUDENCIO K 786.2 Cough 01/24/2009 STEWART DO, GAUDENCIO K 787.02 Nausea Alone 01/24/2009 STEWART DO, GAUDENCIO K 466.0 Acute Bronchitis 01/24/2009 STEWART DO, GAUDENCIO K 536.8 Dyspepsia And Other Specified Disorders Of Function Of Stomach 01/24/2009 STEWART DO, GAUDENCIO K 786.2 Cough 01/24/2009 STEWART DO, GAUDENCIO K 787.02 Nausea Alone 01/24/2009 STEWART DO, GAUDENCIO K 466.0 Acute Bronchitis 01/24/2009 STEWART DO, GAUDENCIO K 536.8 Dyspepsia And Other Specified Disorders Of Function Of Stomach 01/24/2009 STEWART DO, GAUDENCIO K 786.2 Cough 01/24/2009 STEWART DO, GAUDENCIO K 787.02 Nausea Alone 01/24/2009 466.0 Acute Bronchitis 01/24/2009 536.8 Dyspepsia And Other Specified Disorders Of Function Of Stomach 01/24/2009 786.2 Cough 01/24/2009 787.02 Nausea Alone 01/24/2009 MUOGHALU DDS, LESLIE N 466.0 Acute Bronchitis 01/24/2009 MUOGHALU DDS, LESLIE N 536.8 Dyspepsia And Other Specified Disorders Of Function Of Stomach 01/24/2009 MUOGHALU DDS, LESLIE N 786.2 Cough 01/24/2009 MUOGHALU DDS, LESLIE N 787.02 Nausea Alone 01/24/2009 466.0 Acute Bronchitis 01/24/2009 536.8 Dyspepsia And Other Specified Disorders Of Function Of Stomach 01/24/2009 786.2 Cough 01/24/2009 787.02 Nausea Alone 01/24/2009 STEWART DO, GAUDENCIO K 466.0 Acute Bronchitis 01/24/2009 STEWART DO, GAUDENCIO K 536.8 Dyspepsia And Other Specified Disorders Of Function Of Stomach 01/24/2009 STEWART DO, GAUDENCIO K 786.2 Cough 01/24/2009 STEWART DO, GAUDENCIO K 787.02 Nausea Alone 01/24/2009 STEWART DO, GAUDENCIO K 466.0 Acute Bronchitis 01/24/2009 STEWART DO, GAUDENCIO K 536.8 Dyspepsia And Other Specified Disorders Of Function Of Stomach 01/24/2009 STEWART DO, GAUDENCIO K 786.2 Cough 01/24/2009 STEWART DO, GAUDENCIO K 787.02 Nausea Alone 01/24/2009 STEWART DO, GAUDENCIO K 466.0 Acute Bronchitis 01/24/2009 SETWART DO, GAUDENCIO K 536.8 Dyspepsia And Other Specified Disorders Of Function Of Stomach 01/24/2009 STEWART DO, GAUDENCIO K 786.2 Cough 01/24/2009 STEWART DO, GAUDENCIO K 787.02 Nausea Alone 01/24/2009 466.0 Acute Bronchitis 01/24/2009 536.8 Dyspepsia And Other Specified Disorders Of Function Of Stomach 01/24/2009 786.2 Cough 01/24/2009 787.02 Nausea Alone 01/24/2009 STEWART DO, GAUDENCIO K 466.0 Acute Bronchitis 01/24/2009 STEWART DO, GAUDENCIO K 536.8 Dyspepsia And Other Specified Disorders Of Function Of Stomach 01/24/2009 STEWART DO, GAUDENCIO K 786.2 Cough 01/24/2009 STEWART DO, GAUDENCIO K 787.02 Nausea Alone 02/07/2009 STEWART DO, GAUDENCIO K 787.91 Diarrhea 02/07/2009 STEWART DO, GAUDENCIO K 789.00 Abdominal Pain 02/07/2009 STEWART DO, GAUDENCIO K 787.91 Diarrhea 02/07/2009 STEWART DO, GAUDENCIO K 789.00 Abdominal Pain 02/07/2009 STEWART DO, GAUDENCIO K 787.91 Diarrhea 02/07/2009 STEWART DO, GAUDENCIO K 789.00 Abdominal Pain 02/07/2009 787.91 Diarrhea 02/07/2009 789.00 Abdominal Pain 02/07/2009 MUOGHALU DDS, LESLIE N 787.91 Diarrhea 02/07/2009 MUOGHALU DDS, LESLIE N 789.00 Abdominal Pain 02/07/2009 787.91 Diarrhea 02/07/2009 789.00 Abdominal Pain 02/07/2009 STEWART DO, GAUDENCIO K 787.91 Diarrhea 02/07/2009 STEWART DO, GAUDENCIO K 789.00 Abdominal Pain 02/07/2009 STEWART DO, GAUDENCIO K 787.91 Diarrhea 02/07/2009 STEWART DO, GAUDENCIO K 789.00 Abdominal Pain 02/07/2009 STEWART DO, GAUDENCIO K 787.91 Diarrhea 02/07/2009 STEWART DO, GAUDENCIO K 789.00 Abdominal Pain 02/07/2009 787.91 Diarrhea 02/07/2009 789.00 Abdominal Pain 02/07/2009 STEWART DO, GAUDENCIO K 787.91 Diarrhea 02/07/2009 STEWART DO, GAUDENCIO K 789.00 Abdominal Pain 04/04/2009 STEWART DO, GAUDENCIO K 356.9 POLYNEUROPATHY 04/04/2009 STEWART DO, GAUDENCIO K 356.9 POLYNEUROPATHY 04/04/2009 STEWART DO, GAUDENCIO K 356.9 POLYNEUROPATHY 04/04/2009 356.9 POLYNEUROPATHY 04/04/2009 [facility] LESLIE N 356.9 POLYNEUROPATHY 04/04/2009 356.9 POLYNEUROPATHY 04/04/2009 STEWART DO, GAUDENCIO K 356.9 POLYNEUROPATHY 04/04/2009 STEWART DO, GAUDENCIO K 356.9 POLYNEUROPATHY 04/04/2009 STEWART DO, GAUDENCIO K 356.9 POLYNEUROPATHY 04/04/2009 356.9 POLYNEUROPATHY 04/04/2009 STEWART DO, GAUDENCIO K 356.9 POLYNEUROPATHY 11/01/2009 STEWART DO, GAUDENCIO K 625.0 Dyspareunia 11/01/2009 STEWART DO, GAUDENCIO K V74.5 Std Screen 11/01/2009 STEWART DO, GAUDENCIO K 625.0 Dyspareunia 11/01/2009 STEWART DO, GAUDENCIO K V74.5 Std Screen 11/01/2009 STEWART DO, GAUDENCIO K 625.0 Dyspareunia 11/01/2009 STEWART DO, GAUDENCIO K V74.5 Std Screen 11/01/2009 625.0 Dyspareunia 11/01/2009 V74.5 Std Screen 11/01/[facility] LESLIE N 625.0 Dyspareunia 11/01/2009 [facility], LELSIE N V74.5 Std Screen 11/01/2009 625.0 Dyspareunia 11/01/2009 V74.5 Std Screen 11/01/2009 STEWART DO, GAUDENCIO K 625.0 Dyspareunia 11/01/2009 STEWART DO, GAUDENCIO K V74.5 Std Screen 11/01/2009 STEWART DO, GAUDENCIO K 625.0 Dyspareunia 11/01/2009 STEWART DO, GAUDENCIO K V74.5 Std Screen 11/01/2009 STEWART DO, GAUDENCIO K 625.0 Dyspareunia 11/01/2009 STEWART DO, GAUDENCIO K V74.5 Std Screen 11/01/2009 625.0 Dyspareunia 11/01/2009 V74.5 Std Screen 11/01/2009 STEWART DO, GAUDENCIO K 625.0 Dyspareunia 11/01/2009 STEWART DO, GAUDENCIO K V74.5 Std Screen 11/08/2009 Ot 562.10 11/08/2009 Ot 787.91 11/20/2009 STEWART DO, GAUDENCIO K 692.9 Contact Dermatitis And Other Eczema, Unspecified Cause 11/20/2009 STEWART DO, GAUDENCIO K 692.9 Contact Dermatitis And Other Eczema, Unspecified Cause 11/20/2009 STEWART DO, GAUDENCIO K 692.9 Contact Dermatitis And Other Eczema, Unspecified Cause 11/20/2009 692.9 Contact Dermatitis And Other Eczema, Unspecified Cause 11/20/2009 MATT PARRA, LESLIE N 692.9 Contact Dermatitis And Other Eczema, Unspecified Cause 11/20/2009 692.9 Contact Dermatitis And Other Eczema, Unspecified Cause 11/20/2009 STEWART DO, GAUDENCIO K 692.9 Contact Dermatitis And Other Eczema, Unspecified Cause 11/20/2009 STEWART DO, GAUDENCIO K 692.9 Contact Dermatitis And Other Eczema, Unspecified Cause 11/20/2009 STEWART DO, GAUDENCIO K 692.9 Contact Dermatitis And Other Eczema, Unspecified Cause 11/20/2009 692.9 Contact Dermatitis And Other Eczema, Unspecified Cause 11/20/2009 STEWART DO, GAUDENCIO K 692.9 Contact Dermatitis And Other Eczema, Unspecified Cause 11/23/2009 Ot 250.00 11/23/2009 Ot 272.4 11/23/2009 Ot 311 11/23/2009 Ot 401.9 11/23/2009 Ot 558.9 11/23/2009 Ot 791.9 11/23/2009 Ot V58.69 11/28/2009 STEWART DO, GAUDENCIO K 009.1 Colitis Enteritis And Gastroenteritis Of Presumed Infectious Origin 11/28/2009 STEWART DO, GAUDENCIO K 009.1 Colitis Enteritis And Gastroenteritis Of Presumed Infectious Origin 11/28/2009 STEWART DO GAUDENCIO K 009.1 Colitis Enteritis And Gastroenteritis Of Presumed Infectious Origin 11/28/2009 009.1 Colitis Enteritis And Gastroenteritis Of Presumed Infectious Origin 11/28/2009 [facility] DDS, LESLIE N 009.1 Colitis Enteritis And Gastroenteritis Of Presumed Infectious Origin 11/28/2009 009.1 Colitis Enteritis And Gastroenteritis Of Presumed Infectious Origin 11/28/2009 STEWART DO, GAUDENCIO K 009.1 Colitis Enteritis And Gastroenteritis Of Presumed Infectious Origin 11/28/2009 STEWART DO, GAUDENCIO K 009.1 Colitis Enteritis And Gastroenteritis Of Presumed Infectious Origin 11/28/2009 STEWART DO, GAUDENCIO K 009.1 Colitis Enteritis And Gastroenteritis Of Presumed Infectious Origin 11/28/2009 009.1 Colitis Enteritis And Gastroenteritis Of Presumed Infectious Origin 11/28/2009 STEWART DO, GAUDENCIO K 009.1 Colitis Enteritis And Gastroenteritis Of Presumed Infectious Origin 12/25/2009 STEWART DO, GAUDENCIO K 493.90 ASTHMA UNSPECIFIED 12/25/2009 STEWART DO, GAUDENCIO K 558.9 Gastroenteritis Noninfectious 12/25/2009 STEWART DO, GAUDENCIO K 493.90 ASTHMA UNSPECIFIED 12/25/2009 STEWART DO, GAUDENCIO K 558.9 Gastroenteritis Noninfectious 12/25/2009 STEWART DO, GAUDENCIO K 493.90 ASTHMA UNSPECIFIED 12/25/2009 STEWART DO, GAUDENCIO K 558.9 Gastroenteritis Noninfectious 12/25/2009 493.90 ASTHMA UNSPECIFIED 12/25/2009 558.9 Gastroenteritis Noninfectious 12/25/2009 [facility] DDS, LESLIE N 493.90 ASTHMA UNSPECIFIED 12/25/2009 [facility] DDS, LESLIE N 558.9 Gastroenteritis Noninfectious 12/25/2009 493.90 ASTHMA UNSPECIFIED 12/25/2009 558.9 Gastroenteritis Noninfectious 12/25/2009 STEWART DO, GAUDENCIO K 493.90 ASTHMA UNSPECIFIED 12/25/2009 STEWART DO, GAUDENCIO K 558.9 Gastroenteritis Noninfectious 12/25/2009 STEWART DO, GAUDENCIO K 493.90 ASTHMA UNSPECIFIED 12/25/2009 STEWART DO, GAUDENCIO K 558.9 Gastroenteritis Noninfectious 12/25/2009 STEWART DO, GAUDENCIO K 493.90 ASTHMA UNSPECIFIED 12/25/2009 STEWART DO, GAUDENCIO K 558.9 Gastroenteritis Noninfectious 12/25/2009 493.90 ASTHMA UNSPECIFIED 12/25/2009 558.9 Gastroenteritis Noninfectious 12/25/2009 STEWART DO, GAUDENCIO K 493.90 ASTHMA UNSPECIFIED 12/25/2009 STEWART DO, GAUDENCIO K 558.9 Gastroenteritis Noninfectious 02/12/2010 STEWART DO, GAUDENCIO K 788.41 Urinary Frequency 02/12/2010 STEWART DO, GAUDENCIO K V04.81 Flu Shot 02/12/2010 STEWART DO, GAUDENCIO K 788.41 Urinary Frequency 02/12/2010 STEWART DO, GAUDENCIO K V04.81 Flu Shot 02/12/2010 STEWART DO, GAUDENCIO K 788.41 Urinary Frequency 02/12/2010 STEWART DO, GAUDENCIO K V04.81 Flu Shot 02/12/2010 788.41 Urinary Frequency 02/12/2010 V04.81 Flu Shot 02/12/2010 [facility] DDS, LESLIE N 788.41 Urinary Frequency 02/12/2010 [facility] DDS, LESLIE N V04.81 Flu Shot 02/12/2010 788.41 Urinary Frequency 02/12/2010 V04.81 Flu Shot 02/12/2010 STEWART DO, GAUDENCIO K 788.41 Urinary Frequency 02/12/2010 STEWART DO, GAUDENCIO K V04.81 Flu Shot 02/12/2010 STEWART DO, GAUDENCIO K 788.41 Urinary Frequency 02/12/2010 STEWART DO, GAUDENCIO K V04.81 Flu Shot 02/12/2010 STEWART DO, GAUDENCIO K 788.41 Urinary Frequency 02/12/2010 STEWART DO, GAUDENCIO K V04.81 Flu Shot 02/12/2010 788.41 Urinary Frequency 02/12/2010 V04.81 Flu Shot 02/12/2010 STEWART DO, GAUDENCIO K 788.41 Urinary Frequency 02/12/2010 STEWART DO, GAUDENCIO K V04.81 Flu Shot 03/11/2010 STEWART DO, GAUDENCIO K 682.9 Cellulitis And Abscess Of Unspecified Sites 03/11/2010 STEWART DO, GAUDENCIO K 682.9 Cellulitis And Abscess Of Unspecified Sites 03/11/2010 STEWART DO, GAUDENCIO K 682.9 Cellulitis And Abscess Of Unspecified Sites 03/11/2010 682.9 Cellulitis And Abscess Of Unspecified Sites 03/11/2010 [facility] DDS, LESLIE N 682.9 Cellulitis And Abscess Of Unspecified Sites 03/11/2010 682.9 Cellulitis And Abscess Of Unspecified Sites 03/11/2010 STEWART DO, GAUDENCIO K 682.9 Cellulitis And Abscess Of Unspecified Sites 03/11/2010 STEWART DO, GAUDENCIO K 682.9 Cellulitis And Abscess Of Unspecified Sites 03/11/2010 STEWART DO, GAUDENCIO K 682.9 Cellulitis And Abscess Of Unspecified Sites 03/11/2010 682.9 Cellulitis And Abscess Of Unspecified Sites 03/11/2010 STEWART DO, GAUDENCIO K 682.9 Cellulitis And Abscess Of Unspecified Sites 05/19/2010 STEWART DO, GAUDENCIO K 916.4 Insect Bite Nonvenomous Of Hip Thigh Leg And Ankle Without Infection 05/19/2010 STEWART DO, GAUDENCIO K 916.4 Insect Bite Nonvenomous Of Hip Thigh Leg And Ankle Without Infection 05/19/2010 STEWART DO, GAUDENCIO K 916.4 Insect Bite Nonvenomous Of Hip Thigh Leg And Ankle Without Infection 05/19/2010 916.4 Insect Bite Nonvenomous Of Hip Thigh Leg And Ankle Without Infection 05/19/2010 MATT PARRA, LESLIE Tapia 916.4 Insect Bite Nonvenomous Of Hip Thigh Leg And Ankle Without Infection 05/19/2010 916.4 Insect Bite Nonvenomous Of Hip Thigh Leg And Ankle Without Infection 05/19/2010 STEWART DO, GAUDENCIO K 916.4 Insect Bite Nonvenomous Of Hip Thigh Leg And Ankle Without Infection 05/19/2010 STEWART DO, GAUDENCIO K 916.4 Insect Bite Nonvenomous Of Hip Thigh Leg And Ankle Without Infection 05/19/2010 STEWART DO, GAUDENCIO K 916.4 Insect Bite Nonvenomous Of Hip Thigh Leg And Ankle Without Infection 05/19/2010 916.4 Insect Bite Nonvenomous Of Hip Thigh Leg And Ankle Without Infection 05/19/2010 STEWART DO, GAUDENCIO K 916.4 Insect Bite Nonvenomous Of Hip Thigh Leg And Ankle Without Infection 07/08/2010 STEWART DO, GAUDENCIO K 627.8 PERIMENOPAUSE 07/08/2010 STEWART DO, GAUDENCIO K 724.2 Back Pain, Lower 07/08/2010 STEWART DO, GAUDENCIO K 627.8 PERIMENOPAUSE 07/08/2010 STEWART DO, GAUDENCIO K 724.2 Back Pain, Lower 07/08/2010 STEWART DO, GAUDENCIO K 627.8 PERIMENOPAUSE 07/08/2010 STEWART DO, GAUDENCIO K 724.2 Back Pain, Lower 07/08/2010 627.8 PERIMENOPAUSE 07/08/2010 724.2 Back Pain, Lower 07/08/2010 [facility] DDS, LESLIE N 627.8 PERIMENOPAUSE 07/08/2010 [facility] DDS, LESLIE N 724.2 Back Pain, Lower 07/08/2010 627.8 PERIMENOPAUSE 07/08/2010 724.2 Back Pain, Lower 07/08/2010 STEWART DO, GAUDENCIO K 627.8 PERIMENOPAUSE 07/08/2010 STEWART DO, GAUDENCIO K 724.2 Back Pain, Lower 07/08/2010 STEWART DO, GAUDENCIO K 627.8 PERIMENOPAUSE 07/08/2010 STEWART DO, GAUDENCIO K 724.2 Back Pain, Lower 07/08/2010 STEWART DO, GAUDENCIO K 627.8 PERIMENOPAUSE 07/08/2010 STEWART DO, GAUDENCIO K 724.2 Back Pain, Lower 07/08/2010 627.8 PERIMENOPAUSE 07/08/2010 724.2 Back Pain, Lower 07/08/2010 STEWART DO, GAUDENCIO K 627.8 PERIMENOPAUSE 07/08/2010 STEWART DO, GAUDENCIO K 724.2 Back Pain, Lower 07/11/2010 STEWART DO, GAUDENCIO K 461.9 Acute Sinusitis Unspecified 07/11/2010 STEWART DO, GAUDENCIO K 461.9 Acute Sinusitis Unspecified 07/11/2010 STEWART DO, GAUDENCIO K 461.9 Acute Sinusitis Unspecified 07/11/2010 461.9 Acute Sinusitis Unspecified 07/11/2010 [facility] DDS, LESLIE N 461.9 Acute Sinusitis Unspecified 07/11/2010 461.9 Acute Sinusitis Unspecified 07/11/2010 STEWART DO, GAUDENCIO K 461.9 Acute Sinusitis Unspecified 07/11/2010 STEWART DO, GAUDENCIO K 461.9 Acute Sinusitis Unspecified 07/11/2010 STEWART DO, GAUDENCIO K 461.9 Acute Sinusitis Unspecified 07/11/2010 461.9 Acute Sinusitis Unspecified 07/11/2010 STEWART DO, GAUDENCIO K 461.9 Acute Sinusitis Unspecified 09/26/2010 STEWART DO, GAUDENCIO K 296.33 MO DEPRESSIVE 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 09/26/2010 STEWART DO, GAUDENCIO K 301.83 PD BORDERLINE 09/26/2010 STEWART DO, GAUDENCIO K 296.33 MO DEPRESSIVE 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 09/26/2010 STEWART DO, GAUDENCIO K 301.83 PD BORDERLINE 09/26/2010 STEWART DO, GAUDENCIO K 296.33 MO DEPRESSIVE 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 09/26/2010 STEWART DO, GAUDENCIO K 301.83 PD BORDERLINE 09/26/2010 296.33 MO DEPRESSIVE 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 09/26/2010 301.83 PD BORDERLINE 09/26/2010 [facility] DDS, LESLIE N 296.33 MO DEPRESSIVE 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 09/26/2010 [facility] DDS, LESLIE N 301.83 PD BORDERLINE 09/26/2010 296.33 MO DEPRESSIVE 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 09/26/2010 301.83 PD BORDERLINE 09/26/2010 STEWART DO, GAUDENCIO K 296.33 MO DEPRESSIVE 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 09/26/2010 STEWART DO, GAUDENCIO K 301.83 PD BORDERLINE 09/26/2010 STEWART DO, GAUDENCIO K 296.33 MO DEPRESSIVE 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 09/26/2010 STEWART DO, GAUDENCIO K 301.83 PD BORDERLINE 09/26/2010 STEWART DO, GAUDENCIO K 296.33 MO DEPRESSIVE 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 09/26/2010 STEWART DO, GAUDENCIO K 301.83 PD BORDERLINE 09/26/2010 296.33 MO DEPRESSIVE 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 09/26/2010 301.83 PD BORDERLINE 09/26/2010 STEWART DO, GAUDENCIO K 296.33 MO DEPRESSIVE 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 09/26/2010 STEWART DO, GAUDENCIO K 301.83 PD BORDERLINE 10/06/2010 STEWART DO, GAUDENCIO K 296.32 MO DEPRESSIVE RECURRENT MODERATE 10/06/2010 STEWART DO, GAUDENCIO K 296.32 MO DEPRESSIVE RECURRENT MODERATE 10/06/2010 STEWART DO, GAUDENCIO K 296.32 MO DEPRESSIVE RECURRENT MODERATE 10/06/2010 296.32 MO DEPRESSIVE RECURRENT MODERATE 10/06/2010 [facility] DDS, LESLIE N 296.32 MO DEPRESSIVE RECURRENT MODERATE 10/06/2010 296.32 MO DEPRESSIVE RECURRENT MODERATE 10/06/2010 STEWART DO, GAUDENCIO K 296.32 MO DEPRESSIVE RECURRENT MODERATE 10/06/2010 STEWART DO, GAUDENCIO K 296.32 MO DEPRESSIVE RECURRENT MODERATE 10/06/2010 STEWART DO, GAUDENCIO K 296.32 MO DEPRESSIVE RECURRENT MODERATE 10/06/2010 296.32 MO DEPRESSIVE RECURRENT MODERATE 10/06/2010 STEWART DO, GAUDENCIO K 296.32 MO DEPRESSIVE RECURRENT MODERATE 10/15/2010 STEWART DO, GAUDENCIO K 296.90 MOOD DISORDER 10/15/2010 STEWART DO, GAUDENCIO K 296.90 MOOD DISORDER 10/15/2010 STEWART DO, GAUDENCIO K 296.90 MOOD DISORDER 10/15/2010 296.90 MOOD DISORDER 10/15/2010 [facility] DDS, LESLIE N 296.90 MOOD DISORDER 10/15/2010 296.90 MOOD DISORDER 10/15/2010 STEWART DO, GAUDENCIO K 296.90 MOOD DISORDER 10/15/2010 STEWART DO, GAUDENCIO K 296.90 MOOD DISORDER 10/15/2010 STEWART DO, GAUDENCIO K 296.90 MOOD DISORDER 10/15/2010 296.90 MOOD DISORDER 10/15/2010 STEWART DO, GAUDENCIO K 296.90 MOOD DISORDER 10/23/2010 STEWART DO, GAUDENCIO K 300.15 DS DISSOCIATIVE DIS NOS 10/23/2010 STEWART DO, GAUDENCIO K 309.81 AN PTSD 10/23/2010 STEWART DO, GAUDENCIO K 300.15 DS DISSOCIATIVE DIS NOS 10/23/2010 STEWART DO, GAUDENCIO K 309.81 AN PTSD 10/23/2010 STEWART DO, GAUDENCIO K 300.15 DS DISSOCIATIVE DIS NOS 10/23/2010 STEWART DO, GAUDENCIO K 309.81 AN PTSD 10/23/2010 300.15 DS DISSOCIATIVE DIS NOS 10/23/2010 309.81 AN PTSD 10/23/2010 [facility] DDS, LESLIE N 300.15 DS DISSOCIATIVE DIS NOS 10/23/2010 [facility] DDS, LESLIE N 309.81 AN PTSD 10/23/2010 300.15 DS DISSOCIATIVE DIS NOS 10/23/2010 309.81 AN PTSD 10/23/2010 STEWART DO, GAUDENCIO K 300.15 DS DISSOCIATIVE DIS NOS 10/23/2010 STEWART DO, GAUDENCIO K 309.81 AN PTSD 10/23/2010 STEWART DO GAUDENCIO K 300.15 DS DISSOCIATIVE DIS NOS 10/23/2010 STEWART DO GAUDENCIO K 309.81 AN PTSD 10/23/2010 STEWART DO, GAUDENCIO K 300.15 DS DISSOCIATIVE DIS NOS 10/23/2010 STEWART DO, GAUDENCIO K 309.81 AN PTSD 10/23/2010 300.15 DS DISSOCIATIVE DIS NOS 10/23/2010 309.81 AN PTSD 10/23/2010 STEWART DO, GAUDENCIO K 300.15 DS DISSOCIATIVE DIS NOS 10/23/2010 STEWART DO, GAUDENCIO K 309.81 AN PTSD 11/06/2010 STEWART DO GAUDENCIO K 296.60 MO BIPOLAR I MIXED UNSPECIFIED 11/06/2010 STEWART DO, GAUDENCIO K 296.60 MO BIPOLAR I MIXED UNSPECIFIED 11/06/2010 STEWART DO, GAUDENCIO K 296.60 MO BIPOLAR I MIXED UNSPECIFIED 11/06/2010 296.60 MO BIPOLAR I MIXED UNSPECIFIED 11/06/2010 LESLIE GUTIERREZ DDS 296.60 MO BIPOLAR I MIXED UNSPECIFIED 11/06/2010 296.60 MO BIPOLAR I MIXED UNSPECIFIED 11/06/2010 STEWART DO, GAUDENCIO K 296.60 MO BIPOLAR I MIXED UNSPECIFIED 11/06/2010 STEWART DO, GAUDENCIO K 296.60 MO BIPOLAR I MIXED UNSPECIFIED 11/06/2010 STEWART DO, GAUDENCIO K 296.60 MO BIPOLAR I MIXED UNSPECIFIED 11/06/2010 296.60 MO BIPOLAR I MIXED UNSPECIFIED 11/06/2010 STEWART DO, GAUDENCIO K 296.60 MO BIPOLAR I MIXED UNSPECIFIED 11/13/2010 STEWART DO, GAUDENCIO K 110.1 Onychomycosis 11/13/2010 STEWART DO, GAUDENCIO K V58.69 LONG-TERM (CURRENT) USE OF OTHER MEDICATIONS 11/13/2010 TERRY DO GAUDENCIO K V77.99 Screening For Other And Unspecified Endocrine Nutritional Metabolic And Immunity Disorders 11/13/2010 STEWART DO, GAUDENCIO K 110.1 Onychomycosis 11/13/2010 STEWART DO, GAUDENCIO K V58.69 LONG-TERM (CURRENT) USE OF OTHER MEDICATIONS 11/13/2010 STEWART DO, GAUDENCIO K V77.99 Screening For Other And Unspecified Endocrine Nutritional Metabolic And Immunity Disorders 11/13/2010 STEWART DO, GAUDENCIO K 110.1 Onychomycosis 11/13/2010 STEWART DO, GAUDENCIO K V58.69 LONG-TERM (CURRENT) USE OF OTHER MEDICATIONS 11/13/2010 TERRY ISBELL GAUDENCIO K V77.99 Screening For Other And Unspecified Endocrine Nutritional Metabolic And Immunity Disorders 11/13/2010 110.1 Onychomycosis 11/13/2010 V58.69 LONG-TERM ( CURRENT) USE OF OTHER MEDICATIONS 11/13/2010 V77.99 Screening For Other And Unspecified Endocrine Nutritional Metabolic And Immunity Disorders 11/13/2010 [facility] DDS, LESLIE N 110.1 Onychomycosis 11/13/2010 [facility] DDS, LESLIE N V58.69 LONG-TERM (CURRENT) USE OF OTHER MEDICATIONS 11/13/2010 [facility] DDS, LESLIE N V77.99 Screening For Other And Unspecified Endocrine Nutritional Metabolic And Immunity Disorders 11/13/2010 110.1 Onychomycosis 11/13/2010 V58.69 LONG-TERM ( CURRENT) USE OF OTHER MEDICATIONS 11/13/2010 V77.99 Screening For Other And Unspecified Endocrine Nutritional Metabolic And Immunity Disorders 11/13/2010 STEWART DO, GAUDENCIO K 110.1 Onychomycosis 11/13/2010 STEWART DO, GAUDENCIO K V58.69 LONG-TERM (CURRENT) USE OF OTHER MEDICATIONS 11/13/2010 STEWART DO, GAUDENCIO K V77.99 Screening For Other And Unspecified Endocrine Nutritional Metabolic And Immunity Disorders 11/13/2010 STEWART DO, GAUDENCIO K 110.1 Onychomycosis 11/13/2010 STEWART DO, GAUDENCIO K V58.69 LONG-TERM (CURRENT) USE OF OTHER MEDICATIONS 11/13/2010 STEWART DO, GAUDENCIO K V77.99 Screening For Other And Unspecified Endocrine Nutritional Metabolic And Immunity Disorders 11/13/2010 STEWART DO, GAUDENCIO K 110.1 Onychomycosis 11/13/2010 STEWART DO, GAUDENCIO K V58.69 LONG-TERM (CURRENT) USE OF OTHER MEDICATIONS 11/13/2010 STEWART DO, GAUDENCIO K V77.99 Screening For Other And Unspecified Endocrine Nutritional Metabolic And Immunity Disorders 11/13/2010 110.1 Onychomycosis 11/13/2010 V58.69 LONG-TERM ( CURRENT) USE OF OTHER MEDICATIONS 11/13/2010 V77.99 Screening For Other And Unspecified Endocrine Nutritional Metabolic And Immunity Disorders 11/13/2010 STEWART DO, GAUDENCIO K 110.1 Onychomycosis 11/13/2010 STEWART DO, GAUDENCIO K V58.69 LONG-TERM (CURRENT) USE OF OTHER MEDICATIONS 11/13/2010 STEWART DO, GAUDENCIO K V77.99 Screening For Other And Unspecified Endocrine Nutritional Metabolic And Immunity Disorders 11/17/2010 STEWART DO, GAUDENCIO K 268.9 VITAMIN D DEFICIENCY 11/17/2010 STEWART DO, GAUDENCIO K 268.9 VITAMIN D DEFICIENCY 11/17/2010 STEWART DO, GAUDENCIO K 268.9 VITAMIN D DEFICIENCY 11/17/2010 268.9 VITAMIN D DEFICIENCY 11/17/2010 [facility] DDS, LESLIE N 268.9 VITAMIN D DEFICIENCY 11/17/2010 268.9 VITAMIN D DEFICIENCY 11/17/2010 STEWART DO, GAUDENCIO K 268.9 VITAMIN D DEFICIENCY 11/17/2010 STEWART DO, GAUDENCIO K 268.9 VITAMIN D DEFICIENCY 11/17/2010 STEWART DO, GAUDENCIO K 268.9 VITAMIN D DEFICIENCY 11/17/2010 268.9 VITAMIN D DEFICIENCY 11/17/2010 STEWART DO, GAUDENCIO K 268.9 VITAMIN D DEFICIENCY 11/21/2010 STEWART DO, GAUDENCIO K 296.62 MO BIPOLAR I MIXED MODERATE 11/21/2010 STEWART DO, GAUDENCIO K 296.62 MO BIPOLAR I MIXED MODERATE 11/21/2010 STEWART DO, GAUDENCIO K 296.62 MO BIPOLAR I MIXED MODERATE 11/21/2010 296.62 MO BIPOLAR I MIXED MODERATE 11/21/2010 [facility] DDS, LESLIE N 296.62 MO BIPOLAR I MIXED MODERATE 11/21/2010 296.62 MO BIPOLAR I MIXED MODERATE 11/21/2010 STEWART DO, GAUDENCIO K 296.62 MO BIPOLAR I MIXED MODERATE 11/21/2010 STEWART DO, GAUDENCIO K 296.62 MO BIPOLAR I MIXED MODERATE 11/21/2010 STEWART DO, GAUDENCIO K 296.62 MO BIPOLAR I MIXED MODERATE 11/21/2010 296.62 MO BIPOLAR I MIXED MODERATE 11/21/2010 STEWART DO, GAUDENCIO K 296.62 MO BIPOLAR I MIXED MODERATE 12/16/2010 STEWART DO, GAUDENCIO K 296.63 MO BIPOLAR I MIXED SEVERE W/O PSYCHOTIC BEHAVIOR 12/16/2010 STEWART DO, GAUDENCIO K 296.63 MO BIPOLAR I MIXED SEVERE W/O PSYCHOTIC BEHAVIOR 12/16/2010 STEWART DO, GAUDENCIO K 296.63 MO BIPOLAR I MIXED SEVERE W/O PSYCHOTIC BEHAVIOR 12/16/2010 296.63 MO BIPOLAR I MIXED SEVERE W/O PSYCHOTIC BEHAVIOR 12/16/2010 [facility] DDS, LESLIE N 296.63 MO BIPOLAR I MIXED SEVERE W/O PSYCHOTIC BEHAVIOR 12/16/2010 296.63 MO BIPOLAR I MIXED SEVERE W/O PSYCHOTIC BEHAVIOR 12/16/2010 STEWART DO, GAUDENCIO K 296.63 MO BIPOLAR I MIXED SEVERE W/O PSYCHOTIC BEHAVIOR 12/16/2010 STEWART DO, GAUDENCIO K 296.63 MO BIPOLAR I MIXED SEVERE W/O PSYCHOTIC BEHAVIOR 12/16/2010 STEWART DO, GAUDENCIO K 296.63 MO BIPOLAR I MIXED SEVERE W/O PSYCHOTIC BEHAVIOR 12/16/2010 296.63 MO BIPOLAR I MIXED SEVERE W/O PSYCHOTIC BEHAVIOR 12/16/2010 STEWART DO, GAUDENCIO K 296.63 MO BIPOLAR I MIXED SEVERE W/O PSYCHOTIC BEHAVIOR 02/18/2011 STEWART DO, GAUDENCIO K 296.42 MO BIPOLAR I MANIC MODERATE 02/18/2011 STEWART DO, GAUDENCIO K 296.42 MO BIPOLAR I MANIC MODERATE 02/18/2011 STEWART DO, GAUDENCIO K 296.42 MO BIPOLAR I MANIC MODERATE 02/18/2011 296.42 MO BIPOLAR I MANIC MODERATE 02/18/2011 MATT DUMONTSINDIRARA N 296.42 MO BIPOLAR I MANIC MODERATE 02/18/2011 296.42 MO BIPOLAR I MANIC MODERATE 02/18/2011 STEWART DO, GAUDENCIO K 296.42 MO BIPOLAR I MANIC MODERATE 02/18/2011 STEWART DO, GAUDENCIO K 296.42 MO BIPOLAR I MANIC MODERATE 02/18/2011 STEWART DO, GAUDENCIO K 296.42 MO BIPOLAR I MANIC MODERATE 02/18/2011 296.42 MO BIPOLAR I MANIC MODERATE 02/18/2011 STEWART DO, GAUDENCIO K 296.42 MO BIPOLAR I MANIC MODERATE 02/25/2011 STEWART DO, GAUDENCIO K 709.9 Skin Lesions 02/25/2011 STEWART DO, GAUDENCIO K 724.2 BACK PAIN, LOWER 02/25/2011 STEWART DO, GAUDENCIO K 709.9 Skin Lesions 02/25/2011 STEWART DO, GAUDENCIO K 724.2 BACK PAIN, LOWER 02/25/2011 STEWART DO, GAUDENCIO K 709.9 Skin Lesions 02/25/2011 STEWART DO, GAUDENCIO K 724.2 BACK PAIN, LOWER 02/25/2011 709.9 Skin Lesions 02/25/2011 724.2 BACK PAIN, LOWER 02/25/2011 [facility] JULIASINDIRARA N 709.9 Skin Lesions 02/25/2011 [facility] DDS, LESLIE N 724.2 BACK PAIN, LOWER 02/25/2011 709.9 Skin Lesions 02/25/2011 724.2 BACK PAIN, LOWER 02/25/2011 STEWART DO, GAUDENCIO K 709.9 Skin Lesions 02/25/2011 STEWART DO, GAUDENCIO K 724.2 BACK PAIN, LOWER 02/25/2011 STEWART DO, GAUDENCIO K 709.9 Skin Lesions 02/25/2011 STEWART DO, GAUDENCIO K 724.2 BACK PAIN, LOWER 02/25/2011 STEWART DO, GAUDENCIO K 709.9 Skin Lesions 02/25/2011 STEWART DO, GAUDENCIO K 724.2 BACK PAIN, LOWER 02/25/2011 709.9 Skin Lesions 02/25/2011 724.2 BACK PAIN, LOWER 02/25/2011 STEWART DO, GAUDENCIO K 709.9 Skin Lesions 02/25/2011 STEWART DO, GAUDENCIO K 724.2 BACK PAIN, LOWER 02/25/2011 Ot V58.69 02/25/2011 Ot V58.83 03/10/2011 STEWART DO, GAUDENCIO K 722.6 Degeneration Of Intervertebral Disc Site Unspecified 03/10/2011 STEWART DO, GAUDENCIO K 722.6 Degeneration Of Intervertebral Disc Site Unspecified 03/10/2011 STEWART DO, GAUDENCIO K 722.6 Degeneration Of Intervertebral Disc Site Unspecified 03/10/2011 722.6 Degeneration Of Intervertebral Disc Site Unspecified 03/10/2011 [facility], LESLIE N 722.6 Degeneration Of Intervertebral Disc Site Unspecified 03/10/2011 722.6 Degeneration Of Intervertebral Disc Site Unspecified 03/10/2011 STEWART DO, GAUDENCIO K 722.6 Degeneration Of Intervertebral Disc Site Unspecified 03/10/2011 STEWART DO, GAUDENCIO K 722.6 Degeneration Of Intervertebral Disc Site Unspecified 03/10/2011 STEWART DO, GAUDENCIO K 722.6 Degeneration Of Intervertebral Disc Site Unspecified 03/10/2011 722.6 Degeneration Of Intervertebral Disc Site Unspecified 03/10/2011 STEWART DO, GAUDENCIO K 722.6 Degeneration Of Intervertebral Disc Site Unspecified 03/31/2011 STEWART DO, GAUDENCIO K 782.1 Rash 03/31/2011 STEWART DO, GAUDENCIO K 782.1 Rash 03/31/2011 STEWART DO, GAUDENCIO K 782.1 Rash 03/31/2011 782.1 Rash 03/31/2011 [facility] DDS, LESLIE N 782.1 Rash 03/31/2011 782.1 Rash 03/31/2011 STEWART DO, GAUDENCIO K 782.1 Rash 03/31/2011 STEWART DO, GAUDENCIO K 782.1 Rash 03/31/2011 STEWART DO, GAUDENCIO K 782.1 Rash 03/31/2011 782.1 Rash 03/31/2011 STEWART DO, GAUDENCIO K 782.1 Rash 06/03/2011 STEWART DO, GAUDENCIO K 078.19 Warts Common 06/03/2011 STEWART DO, GAUDENCIO K 078.19 Warts Common 06/03/2011 STEWART DO, GAUDENCIO K 078.19 Warts Common 06/03/2011 078.19 Warts Common 06/03/2011 MUOGHALU DDS, LESLIE N 078.19 Warts Common 06/03/2011 078.19 Warts Common 06/03/2011 STEWART DO, GAUDENCIO K 078.19 Warts Common 06/03/2011 STEWART DO, GAUDENCIO K 078.19 Warts Common 06/03/2011 STEWART DO, GAUDENCIO K 078.19 Warts Common 06/03/2011 078.19 Warts Common 06/03/2011 STEWART DO, GAUDENCIO K 078.19 Warts Common 06/12/2011 STEWART DO, GAUDENCIO K V58.32 Removal Of Sutures 06/12/2011 TERRY DOCOLLEENA K V58.32 Removal Of Sutures 06/12/2011 STEWART DO GAUDENCIO K V58.32 Removal Of Sutures 06/12/2011 V58.32 Removal Of Sutures 06/12/2011 MUOGHALU DDS, LESLIE N V58.32 Removal Of Sutures 06/12/2011 V58.32 Removal Of Sutures 06/12/2011 STEWART DO, GAUDENCIO K V58.32 Removal Of Sutures 06/12/2011 STEWART DO, GAUDENCIO K V58.32 Removal Of Sutures 06/12/2011 STEWART DO, GAUDENCIO K V58.32 Removal Of Sutures 06/12/2011 V58.32 Removal Of Sutures 06/12/2011 STEWART DO, GAUDENCIO K V58.32 Removal Of Sutures 07/03/2011 STEWART GAUDENCIO ISBELL 616.10 Vaginitis Vulvovaginitis Unspecified 07/03/2011 STEWART GAUDENCIO ISBELL 788.1 Dysuria 07/03/2011 STEWART GAUDENCIO ISBELL V65.45 Std Counseling 07/03/2011 STEWART GAUDENCIO ISBELL V69.2 High-risk Sexual Behavior 07/03/2011 STEWART GAUDENCIO ISBELL V72.31 Monitoring Specialist Exam, Routine 07/03/2011 STEWART GAUDENCIO ISBELL V74.5 Std Screen 07/03/2011 STEWART GAUDENCIO ISBELL 616.10 Vaginitis Vulvovaginitis Unspecified 07/03/2011 STEWART GAUDENCIO ISBELL 788.1 Dysuria 07/03/2011 STEWART GAUDENCIO ISBELL V65.45 Std Counseling 07/03/2011 STEWART GAUDENCIO ISBELL V69.2 High-risk Sexual Behavior 07/03/2011 STEWART GAUDENCIO ISBELL V72.31 Monitoring Specialist Exam, Routine 07/03/2011 STEWART GAUDENCIO ISBELL V74.5 Std Screen 07/03/2011 STEWART GAUDENCIO ISBELL 616.10 Vaginitis Vulvovaginitis Unspecified 07/03/2011 STEWART GAUDENCIO ISBELL 788.1 Dysuria 07/03/2011 STEWART GAUDENCIO ISBELL V65.45 Std Counseling 07/03/2011 STEWART GAUDENCIO ISBELL V69.2 High-risk Sexual Behavior 07/03/2011 STEWART GAUDENCIO ISBELL V72.31 Monitoring Specialist Exam, Routine 07/03/2011 STEWART GAUDENCIO ISBELL V74.5 Std Screen 07/03/2011 616.10 Vaginitis Vulvovaginitis Unspecified 07/03/2011 788.1 Dysuria 07/03/2011 V65.45 Std Counseling 07/03/2011 V69.2 High-risk Sexual Behavior 07/03/2011 V72.31 Monitoring Specialist Exam, Routine 07/03/2011 V74.5 Std Screen 07/03/2011 MUOGHALKeegan DDS, LESLIE N 616.10 Vaginitis Vulvovaginitis Unspecified 07/03/2011 MUOGHALU DDS, LESLIE N 788.1 Dysuria 07/03/2011 MUOGHALU DDS, LESLIE N V65.45 Std Counseling 07/03/2011 MUOGHALU DDS, LESLIE N V69.2 High-risk Sexual Behavior 07/03/2011 MUOGHALU DDS, LESLIE N V72.31 Monitoring Specialist Exam, Routine 07/03/2011 MUOGHALU DDS, LESLIE N V74.5 Std Screen 07/03/2011 616.10 Vaginitis Vulvovaginitis Unspecified 07/03/2011 788.1 Dysuria 07/03/2011 V65.45 Std Counseling 07/03/2011 V69.2 High-risk Sexual Behavior 07/03/2011 V72.31 Monitoring Specialist Exam, Routine 07/03/2011 V74.5 Std Screen 07/03/2011 STEWART COLLEEN ISBELLA K 616.10 Vaginitis Vulvovaginitis Unspecified 07/03/2011 GAUDENCIO STEWART DO K 788.1 Dysuria 07/03/2011 STEWART COLLEEN ISBELLA K V65.45 Std Counseling 07/03/2011 STEWART COLLEEN ISBELLA K V69.2 High-risk Sexual Behavior 07/03/2011 COLLEEN STEWART DOA K V72.31 Monitoring Specialist Exam, Routine 07/03/2011 STEWART COLLEEN ISBELLA K V74.5 Std Screen 07/03/2011 STEWART COLLEEN ISBELLA K 616.10 Vaginitis Vulvovaginitis Unspecified 07/03/2011 COLLEEN STEWART DOA K 788.1 Dysuria 07/03/2011 STEWART COLLEEN ISBELLA K V65.45 Std Counseling 07/03/2011 STEWART COLLEEN ISBELLA K V69.2 High-risk Sexual Behavior 07/03/2011 COLLEEN STEWART DOA K V72.31 Monitoring Specialist Exam, Routine 07/03/2011 STEWART COLLEEN ISBELLA K V74.5 Std Screen 07/03/2011 STEWART DO GAUDENCIO K 616.10 Vaginitis Vulvovaginitis Unspecified 07/03/2011 STEWART DOCOLLEENA K 788.1 Dysuria 07/03/2011 STEWART COLLEEN ISBELLA K V65.45 Std Counseling 07/03/2011 STEWART DOCOLLEENA K V69.2 High-risk Sexual Behavior 07/03/2011 STEWART COLLEEN ISBELLA K V72.31 Monitoring Specialist Exam, Routine 07/03/2011 STEWART COLLEEN ISBELLA K V74.5 Std Screen 07/03/2011 616.10 Vaginitis Vulvovaginitis Unspecified 07/03/2011 788.1 Dysuria 07/03/2011 V65.45 Std Counseling 07/03/2011 V69.2 High-risk Sexual Behavior 07/03/2011 V72.31 Monitoring Specialist Exam, Routine 07/03/2011 V74.5 Std Screen 07/03/2011 GAUDENCIO STEWART DO 616.10 Vaginitis Vulvovaginitis Unspecified 07/03/2011 GAUDENCIO STEWART DO 788.1 Dysuria 07/03/2011 GAUDENCIO STEWART DO V65.45 Std Counseling 07/03/2011 GAUDENCIO STEWART DO K V69.2 High-risk Sexual Behavior 07/03/2011 COLLEEN STEWART DOA K V72.31 Monitoring Specialist Exam, Routine 07/03/2011 GAUDENCIO STEWART DO K V74.5 Std Screen 08/10/2011 COLLEEN STEWART DOA K 112.1 Candidiasis Vaginal 08/10/2011 TERRY ISBELL GAUDENCIO K V72.40 Examination Or Test Unconfirmed 08/10/2011 COLLEEN STEWART DOA K 112.1 Candidiasis Vaginal 08/10/2011 COLLEEN STEWART DOA K V72.40 Examination Or Test Unconfirmed 08/10/2011 TERRY ISBELL GAUDENCIO K 112.1 Candidiasis Vaginal 08/10/2011 COLLEEN STEWART DOA K V72.40 Examination Or Test Unconfirmed 08/10/2011 112.1 Candidiasis Vaginal 08/10/2011 V72.40 Examination Or Test Unconfirmed 08/10/2011 MUOGHALU DDS, LESLIE N 112.1 Candidiasis Vaginal 08/10/2011 ROSANNEOGHALU DDS, LESLIE N V72.40 Examination Or Test Unconfirmed 08/10/2011 112.1 Candidiasis Vaginal 08/10/2011 V72.40 Examination Or Test Unconfirmed 08/10/2011 TERRY ISBELL GAUDENCIO K 112.1 Candidiasis Vaginal 08/10/2011 COLLEEN STEWART DOA K V72.40 Examination Or Test Unconfirmed 08/10/2011 TERRY ISBELL GAUDENCIO K 112.1 Candidiasis Vaginal 08/10/2011 STEWART DO GAUDENCIO K V72.40 Examination Or Test Unconfirmed 08/10/2011 COLLEEN STEWART DOA K 112.1 Candidiasis Vaginal 08/10/2011 STEWART DO, GAUDENCIO K V72.40 Examination Or Test Unconfirmed 08/10/2011 112.1 Candidiasis Vaginal 08/10/2011 V72.40 Examination Or Test Unconfirmed 08/10/2011 STEWART DO, GAUDENCIO K 112.1 Candidiasis Vaginal 08/10/2011 STEWART DO, GAUDENCIO K V72.40 Examination Or Test Unconfirmed 08/24/2011 STEWART DO, GAUDENCIO K 354.2 Lesion Of Ulnar Nerve 08/24/2011 STEWART DO, GAUDENCIO K 786.07 Wheezing 08/24/2011 STEWART DO, GAUDENCIO K 354.2 Lesion Of Ulnar Nerve 08/24/2011 STEWART DO, GAUDENCIO K 786.07 Wheezing 08/24/2011 STEWART DO, GAUDENCIO K 354.2 Lesion Of Ulnar Nerve 08/24/2011 STEWART DO, GAUDENCIO K 786.07 Wheezing 08/24/2011 354.2 Lesion Of Ulnar Nerve 08/24/2011 786.07 Wheezing 08/24/2011 LESLIE GUTIERREZ DDS N 354.2 Lesion Of Ulnar Nerve 08/24/2011 LESLIE GUTIERREZ DDS N 786.07 Wheezing 08/24/2011 354.2 Lesion Of Ulnar Nerve 08/24/2011 786.07 Wheezing 08/24/2011 STEWART DO, GAUDENCIO K 354.2 Lesion Of Ulnar Nerve 08/24/2011 STEWART DO, GAUDENCIO K 786.07 Wheezing 08/24/2011 STEWART DO, GAUDENCIO K 354.2 Lesion Of Ulnar Nerve 08/24/2011 STEWART DO, GAUDENCIO K 786.07 Wheezing 08/24/2011 STEWART DO, GAUDENCIO K 354.2 Lesion Of Ulnar Nerve 08/24/2011 STEWART DO, GAUDENCIO K 786.07 Wheezing 08/24/2011 354.2 Lesion Of Ulnar Nerve 08/24/2011 786.07 Wheezing 08/24/2011 STEWART DO, GAUDENCIO K 354.2 Lesion Of Ulnar Nerve 08/24/2011 STEWART DO, GAUDENCIO K 786.07 Wheezing 09/16/2011 STEWART DO, GAUDENCIO K 787.3 Flatulence Eructation And Gas Pain 09/16/2011 STEWART DO, GAUDENCIO K 787.3 Flatulence Eructation And Gas Pain 09/16/2011 STEWART DO, GAUDENCIO K 787.3 Flatulence Eructation And Gas Pain 09/16/2011 787.3 Flatulence Eructation And Gas Pain 09/16/2011 [facility] 787.3 Flatulence Eructation And Gas Pain 09/16/2011 787.3 Flatulence Eructation And Gas Pain 09/16/2011 STEWART DO, GAUDENCIO K 787.3 Flatulence Eructation And Gas Pain 09/16/2011 STEWART DO, GAUDENCIO K 787.3 Flatulence Eructation And Gas Pain 09/16/2011 STEWART DO, GAUDENCIO K 787.3 Flatulence Eructation And Gas Pain 09/16/2011 787.3 Flatulence Eructation And Gas Pain 09/16/2011 STEWART DO, GAUDENCIO K 787.3 Flatulence Eructation And Gas Pain 11/20/2011 STEWART DO, GAUDENCIO K 530.81 GERD 11/20/2011 STEWART DO, GAUDENCIO K 553.3 DIAPHRAGMATIC HERNIA WITHOUT OBSTRUCTION OR GANGRENE 11/20/2011 STEWART DO, GAUDENCIO K 787.20 Dysphagia Unspecified 11/20/2011 STEWART DO, GAUDENCIO K 789.36 Abdominal Or Pelvic Swelling Mass Or Lump Epigastric 11/20/2011 STEWART DO, GAUDENCIO K 530.81 GERD 11/20/2011 STEWART DO, GAUDENCIO K 553.3 DIAPHRAGMATIC HERNIA WITHOUT OBSTRUCTION OR GANGRENE 11/20/2011 STEWART DO, GAUDENCIO K 787.20 Dysphagia Unspecified 11/20/2011 STEWART DO, GAUDENCIO K 789.36 Abdominal Or Pelvic Swelling Mass Or Lump Epigastric 11/20/2011 STEWART DO, GAUDENCIO K 530.81 GERD 11/20/2011 STEWART DO, GAUDENCIO K 553.3 DIAPHRAGMATIC HERNIA WITHOUT OBSTRUCTION OR GANGRENE 11/20/2011 STEWART DO, GAUDENCIO K 787.20 Dysphagia Unspecified 11/20/2011 STEWART DO, GAUDENCIO K 789.36 Abdominal Or Pelvic Swelling Mass Or Lump Epigastric 11/20/2011 530.81 GERD 11/20/2011 553.3 DIAPHRAGMATIC HERNIA WITHOUT OBSTRUCTION OR GANGRENE 11/20/2011 787.20 Dysphagia Unspecified 11/20/2011 789.36 Abdominal Or Pelvic Swelling Mass Or Lump Epigastric 11/20/2011 MUOGHALU DDS, LESLIE N 530.81 GERD 11/20/2011 [facility], LESLIE N 553.3 DIAPHRAGMATIC HERNIA WITHOUT OBSTRUCTION OR GANGRENE 11/20/2011 [facility] [place] DDS, LESLIE N 787.20 Dysphagia Unspecified 11/20/2011 [facility] [place] DDS, LESLIE N 789.36 Abdominal Or Pelvic Swelling Mass Or Lump Epigastric 11/20/2011 530.81 GERD 11/20/2011 553.3 DIAPHRAGMATIC HERNIA WITHOUT OBSTRUCTION OR GANGRENE 11/20/2011 787.20 Dysphagia Unspecified 11/20/2011 789.36 Abdominal Or Pelvic Swelling Mass Or Lump Epigastric 11/20/2011 STEWART DO, GAUDENCIO K 530.81 GERD 11/20/2011 STEWART DO, GAUDENCIO K 553.3 DIAPHRAGMATIC HERNIA WITHOUT OBSTRUCTION OR GANGRENE 11/20/2011 STEWART DO, GAUDENCIO K 787.20 Dysphagia Unspecified 11/20/2011 STEWART DO, GAUDENCIO K 789.36 Abdominal Or Pelvic Swelling Mass Or Lump Epigastric 11/20/2011 STEWART DO, GAUDENCIO K 530.81 GERD 11/20/2011 STEWART DO, GAUDENCIO K 553.3 DIAPHRAGMATIC HERNIA WITHOUT OBSTRUCTION OR GANGRENE 11/20/2011 STEWART DO, GAUDENCIO K 787.20 Dysphagia Unspecified 11/20/2011 STEWART DO, GAUDENCIO K 789.36 Abdominal Or Pelvic Swelling Mass Or Lump Epigastric 11/20/2011 STEWART DO, GAUDENCIO K 530.81 GERD 11/20/2011 STEWART DO, GAUDENCIO K 553.3 DIAPHRAGMATIC HERNIA WITHOUT OBSTRUCTION OR GANGRENE 11/20/2011 STEWART DO, GAUDENCIO K 787.20 Dysphagia Unspecified 11/20/2011 STEWART DO, GAUDENCIO K 789.36 Abdominal Or Pelvic Swelling Mass Or Lump Epigastric 11/20/2011 530.81 GERD 11/20/2011 553.3 DIAPHRAGMATIC HERNIA WITHOUT OBSTRUCTION OR GANGRENE 11/20/2011 787.20 Dysphagia Unspecified 11/20/2011 789.36 Abdominal Or Pelvic Swelling Mass Or Lump Epigastric 11/20/2011 STEWART DO, GAUDENCIO K 530.81 GERD 11/20/2011 STEWART DO, GAUDENCIO K 553.3 DIAPHRAGMATIC HERNIA WITHOUT OBSTRUCTION OR GANGRENE 11/20/2011 STEWART DO, GAUDENCIO K 787.20 Dysphagia Unspecified 11/20/2011 STEWART DO, GAUDENCIO K 789.36 Abdominal Or Pelvic Swelling Mass Or Lump Epigastric 12/22/2011 STEWART DO, GAUDENCIO K 110.1 DERMATOPHYTOSIS OF NAIL 12/22/2011 STEWART DO, GAUDENCIO K 627.0 PREMENOPAUSAL MENORRHAGIA 12/22/2011 STEWART DO, GAUDENCIO K 720.2 SACROILIITIS NOT ELSEWHERE CLASSIFIED 12/22/2011 STEWART DO, GAUDENCIO K 110.1 Dermatophytosis Of Nail 12/22/2011 STEWART DO, GAUDENCIO K 627.0 PREMENOPAUSAL MENORRHAGIA 12/22/2011 STEWART DO, GAUDENCIO K 720.2 SACROILIITIS NOT ELSEWHERE CLASSIFIED 12/22/2011 STEWART DO, GAUDENCIO K 110.1 Dermatophytosis Of Nail 12/22/2011 STEWART DO, GAUDENCIO K 627.0 PREMENOPAUSAL MENORRHAGIA 12/22/2011 STEWART DO, GAUDENCIO K 720.2 SACROILIITIS NOT ELSEWHERE CLASSIFIED 12/22/2011 110.1 Dermatophytosis Of Nail 12/22/2011 627.0 PREMENOPAUSAL MENORRHAGIA 12/22/2011 720.2 SACROILIITIS NOT ELSEWHERE CLASSIFIED 12/22/2011 MUOGHALU DDS, LESLIE N 110.1 Dermatophytosis Of Nail 12/22/2011 MUOGHALU DDS, LESLIE N 627.0 PREMENOPAUSAL MENORRHAGIA 12/22/2011 MUOGHALU DDS, LESLIE N 720.2 SACROILIITIS NOT ELSEWHERE CLASSIFIED 12/22/2011 110.1 Dermatophytosis Of Nail 12/22/2011 627.0 PREMENOPAUSAL MENORRHAGIA 12/22/2011 720.2 SACROILIITIS NOT ELSEWHERE CLASSIFIED 12/22/2011 STEWART DO, GAUDENCIO K 110.1 Dermatophytosis Of Nail 12/22/2011 STEWART DO, GAUDENCIO K 627.0 PREMENOPAUSAL MENORRHAGIA 12/22/2011 STEWART DO, GAUDENCIO K 720.2 SACROILIITIS NOT ELSEWHERE CLASSIFIED 12/22/2011 STEWART DO, GAUDENCIO K 110.1 Dermatophytosis Of Nail 12/22/2011 STEWART DO, GAUDENCIO K 627.0 PREMENOPAUSAL MENORRHAGIA 12/22/2011 STEWART DO, GAUDENCIO K 720.2 SACROILIITIS NOT ELSEWHERE CLASSIFIED 12/22/2011 STEWART DO, GAUDENCIO K 110.1 Dermatophytosis Of Nail 12/22/2011 STEWART DO, GAUDENCIO K 627.0 PREMENOPAUSAL MENORRHAGIA 12/22/2011 STEWART DO, GAUDENCIO K 720.2 SACROILIITIS NOT ELSEWHERE CLASSIFIED 12/22/2011 110.1 Dermatophytosis Of Nail 12/22/2011 627.0 PREMENOPAUSAL MENORRHAGIA 12/22/2011 720.2 SACROILIITIS NOT ELSEWHERE CLASSIFIED 12/22/2011 STEWART DO, GAUDENCIO K 110.1 Dermatophytosis Of Nail 12/22/2011 STEWART DO, GAUDENCIO K 627.0 PREMENOPAUSAL MENORRHAGIA 12/22/2011 STEWART DO, GAUDENCIO K 720.2 SACROILIITIS NOT ELSEWHERE CLASSIFIED 01/06/2012 STEWART DO, GAUDENCIO K 626.0 AMENORRHEA 01/06/2012 STEWART DO, GAUDENCIO K 626.0 AMENORRHEA 01/06/2012 STEWART DO, GAUDENCIO K 626.0 AMENORRHEA 01/06/2012 626.0 AMENORRHEA 01/06/2012 MUKIRK DUMONTS, LESLIE N 626.0 AMENORRHEA 01/06/2012 626.0 AMENORRHEA 01/06/2012 STEWART DO, GAUDENCIO K 626.0 AMENORRHEA 01/06/2012 STEWART DO, GAUDENCIO K 626.0 AMENORRHEA 01/06/2012 STEWART DO, GAUDENCIO K 626.0 AMENORRHEA 01/06/2012 626.0 AMENORRHEA 01/06/2012 STEWART DO, GAUDENCIO K 626.0 AMENORRHEA 01/06/2012 STEWART DO, GAUDENCIO K 626.9 Menstruation And Other Abnormal Bleeding From Female Genital Tract 01/06/2012 STEWART DO, GAUDENCIO K 626.9 Menstruation And Other Abnormal Bleeding From Female Genital Tract 01/07/2012 STEWART DO, GAUDENCIO K 626.9 Menstruation And Other Abnormal Bleeding From Female Genital Tract 02/15/2012 STEWART DO, GAUDENCIO K 626.9 Menstruation And Other Abnormal Bleeding From Female Genital Tract 02/15/2012 STEWART DO, GAUDENCIO K 626.9 Menstruation And Other Abnormal Bleeding From Female Genital Tract 03/13/2012 STEWART DO, GAUDENCIO K 626.9 Menstruation And Other Abnormal Bleeding From Female Genital Tract 03/13/2012 STEWART DO, GAUDENCIO K 626.9 Menstruation And Other Abnormal Bleeding From Female Genital Tract 03/14/2012 STEWART DO, GAUDENCIO K 626.9 Menstruation And Other Abnormal Bleeding From Female Genital Tract 03/14/2012 626.9 Menstruation And Other Abnormal Bleeding From Female Genital Tract 03/23/2012 MUOGHALU DDS, LESLIE N 626.9 Menstruation And Other Abnormal Bleeding From Female Genital Tract 03/25/2012 MUOGHALU DDS, LESLIE N 626.9 Menstruation And Other Abnormal Bleeding From Female Genital Tract 03/30/2012 Ot 530.81 04/01/2012 V18.19 FAMILY HISTORY OF OTHER ENDOCRINE AND METABOLIC DISEASES 04/01/2012 COLLEEN STEWART DOA K V18.19 FAMILY HISTORY OF OTHER ENDOCRINE AND METABOLIC DISEASES 04/01/2012 COLLEEN STEWART DOA K V18.19 FAMILY HISTORY OF OTHER ENDOCRINE AND METABOLIC DISEASES 04/01/2012 STEWART DO GAUDENCIO K V18.19 FAMILY HISTORY OF OTHER ENDOCRINE AND METABOLIC DISEASES 04/01/2012 V18.19 FAMILY HISTORY OF OTHER ENDOCRINE AND METABOLIC DISEASES 04/01/2012 COLLEEN STEWART DOA K V18.19 FAMILY HISTORY OF OTHER ENDOCRINE AND METABOLIC DISEASES 04/03/2012 626.9 Menstruation And Other Abnormal Bleeding From Female Genital Tract 04/04/2012 COLLEEN STEWART DOA K 626.9 Menstruation And Other Abnormal Bleeding From Female Genital Tract 04/11/2012 COLLEEN STEWART DOA K 611.72 BREAST LUMP OR MASS 04/11/2012 STEWART DOCOLLEENA K 611.72 BREAST LUMP OR MASS 04/11/2012 611.72 BREAST LUMP OR MASS 04/11/2012 STEWART COLLEEN ISBELLA K 611.72 BREAST LUMP OR MASS 05/02/2012 TERRY ISBELL GAUDENCIO K 112.1 CANDIDIASIS OF VULVA AND VAGINA 05/02/2012 112.1 CANDIDIASIS OF VULVA AND VAGINA 05/02/2012 COLLEEN STEWART DOA K 112.1 CANDIDIASIS OF VULVA AND VAGINA 05/02/2012 TERRY ISBELL GAUDENCIO K 626.9 Menstruation And Other Abnormal Bleeding From Female Genital Tract 05/03/2012 STEWART DO GAUDENCIO K 626.9 Menstruation And Other Abnormal Bleeding From Female Genital Tract 05/03/2012 COLLEEN STEWART DOA K 626.9 Menstruation And Other Abnormal Bleeding From Female Genital Tract 05/09/2012 626.9 Menstruation And Other Abnormal Bleeding From Female Genital Tract 06/29/2012 PENELOPE WEINSTEIN 250.00 DIABETES MELLITUS WITHOUT MENTION OF COMPLICATION TYPE II OR UNSPECIFIED TYPE NOT STATED UNCONTROLLED 06/29/2012 PENELOPE WEINSTEIN 401.9 UNSPECIFIED ESSENTIAL HYPERTENSION 06/29/2012 ASHANTI FIRST OFFICER AND FLIGHT INSTRUCTOR, ROCHELLE 250.00 DIABETES MELLITUS WITHOUT MENTION OF COMPLICATION TYPE II OR UNSPECIFIED TYPE NOT STATED UNCONTROLLED 06/29/2012 ASHANTI TEJADAN, ROCHELLE 401.9 UNSPECIFIED ESSENTIAL HYPERTENSION 06/29/2012 IFEANYI FAULKNER MD 250.00 DIABETES MELLITUS WITHOUT MENTION OF COMPLICATION TYPE II OR UNSPECIFIED TYPE NOT STATED UNCONTROLLED 06/29/2012 IFEANYI FAULKNER MD 401.9 UNSPECIFIED ESSENTIAL HYPERTENSION 06/29/2012 ARIANNAMIKE FIRST OFF[employer]ER AND FLIGHT INSTRUCTOR, MICHAEL 250.00 DIABETES MELLITUS WITHOUT MENTION OF COMPLICATION TYPE II OR UNSPECIFIED TYPE NOT STATED UNCONTROLLED 06/29/2012 ARIANNAMIKE FIRST OFFICER AND FLIGHT INSTRUCTOR, MICHAEL 401.9 UNSPECIFIED ESSENTIAL HYPERTENSION 06/29/2012 ASHANTI FIRST OFFICER AND FLIGHT INSTRUCTOR, ROCHELLE 250.00 DIABETES MELLITUS WITHOUT MENTION OF COMPLICATION TYPE II OR UNSPECIFIED TYPE NOT STATED UNCONTROLLED 06/29/2012 ASHANTI FIRST OFFICER AND FLIGHT INSTRUCTOR, ROCHELLE 401.9 UNSPECIFIED ESSENTIAL HYPERTENSION 06/29/2012 ASHANTI FIRST OFFICER AND FLIGHT INSTRUCTOR, ROCHELLE 250.00 DIABETES MELLITUS WITHOUT MENTION OF COMPLICATION TYPE II OR UNSPECIFIED TYPE NOT STATED UNCONTROLLED 06/29/2012 ASHANTI FIRST OFFICER AND FLIGHT INSTRUCTOR, ROCHELLE 401.9 UNSPECIFIED ESSENTIAL HYPERTENSION 06/29/2012 ASHANTI FIRST OFFICER AND FLIGHT INSTRUCTOR, ROCHELLE 250.00 DIABETES MELLITUS WITHOUT MENTION OF COMPLICATION TYPE II OR UNSPECIFIED TYPE NOT STATED UNCONTROLLED 06/29/2012 ASHANTI FIRST OFFICER AND FLIGHT INSTRUCTOR, ROCHELLE 401.9 UNSPECIFIED ESSENTIAL HYPERTENSION 06/29/2012 ASHANTI FIRST OFFICER AND FLIGHT INSTRUCTOR, ROCHELLE 250.00 DIABETES MELLITUS WITHOUT MENTION OF COMPLICATION TYPE II OR UNSPECIFIED TYPE NOT STATED UNCONTROLLED 06/29/2012 ASHANTI FIRST OFFICER AND FLIGHT INSTRUCTOR, ROCHELLE 401.9 UNSPECIFIED ESSENTIAL HYPERTENSION 06/29/2012 ASHANTI FIRST OFFICER AND FLIGHT INSTRUCTOR, ROCHELLE 250.00 DIABETES MELLITUS WITHOUT MENTION OF COMPLICATION TYPE II OR UNSPECIFIED TYPE NOT STATED UNCONTROLLED 06/29/2012 ASHANTI FIRST OFFICER AND FLIGHT INSTRUCTOR, ROCHELLE 401.9 UNSPECIFIED ESSENTIAL HYPERTENSION 06/29/2012 BRENT HYLTON 250.00 DIABETES MELLITUS WITHOUT MENTION OF COMPLICATION TYPE II OR UNSPECIFIED TYPE NOT STATED UNCONTROLLED 06/29/2012 BRENT HYLTON 401.9 UNSPECIFIED ESSENTIAL HYPERTENSION 06/29/2012 NGAR DO, STEFFANY 250.00 DIABETES MELLITUS WITHOUT MENTION OF COMPLICATION TYPE II OR UNSPECIFIED TYPE NOT STATED UNCONTROLLED 06/29/2012 NGAR DO, STEFFANY 401.9 UNSPECIFIED ESSENTIAL HYPERTENSION 06/29/2012 NGAR DO, STEFFANY 250.00 DIABETES MELLITUS WITHOUT MENTION OF COMPLICATION TYPE II OR UNSPECIFIED TYPE NOT STATED UNCONTROLLED 06/29/2012 NGAR DO, STEFFANY 401.9 UNSPECIFIED ESSENTIAL HYPERTENSION 06/29/2012 ASHANTI FIRST OFF[employer]ER AND FLIGHT INSTRUCTOR, ROCHELLE 250.00 DIABETES MELLITUS WITHOUT MENTION OF COMPLICATION TYPE II OR UNSPECIFIED TYPE NOT STATED UNCONTROLLED 06/29/2012 ASHANTI FIRST OFFICER AND FLIGHT INSTRUCTOR, ROCHELLE 401.9 UNSPECIFIED ESSENTIAL HYPERTENSION 06/29/2012 ASHANTI FIRST OFFICER AND FLIGHT INSTRUCTOR, ROCHELLE 250.00 DIABETES MELLITUS WITHOUT MENTION OF COMPLICATION TYPE II OR UNSPECIFIED TYPE NOT STATED UNCONTROLLED 06/29/2012 ASHANTI FIRST OFFICER AND FLIGHT INSTRUCTOR, ROCHELLE 401.9 UNSPECIFIED ESSENTIAL HYPERTENSION 06/29/2012 SWADE DO, TERA 250.00 DIABETES MELLITUS WITHOUT MENTION OF COMPLICATION TYPE II OR UNSPECIFIED TYPE NOT STATED UNCONTROLLED 06/29/2012 ALETA DO, TERA 401.9 UNSPECIFIED ESSENTIAL HYPERTENSION 06/29/2012 ASHANTI FIRST OFFICER AND FLIGHT INSTRUCTOR, ROCHELLE 250.00 DIABETES MELLITUS WITHOUT MENTION OF COMPLICATION TYPE II OR UNSPECIFIED TYPE NOT STATED UNCONTROLLED 06/29/2012 ASHANTI MENDES ROCHELLE 401.9 UNSPECIFIED ESSENTIAL HYPERTENSION 06/29/2012 SENGK, SERA 250.00 DIABETES MELLITUS WITHOUT MENTION OF COMPLICATION TYPE II OR UNSPECIFIED TYPE NOT STATED UNCONTROLLED 06/29/2012 SAMMIE SAMANIEGOA 401.9 UNSPECIFIED ESSENTIAL HYPERTENSION 06/29/2012 ASHANTI FIRST OFFICER AND FLIGHT INSTRUCTOR, ROCHELLE 250.00 DIABETES MELLITUS WITHOUT MENTION OF COMPLICATION TYPE II OR UNSPECIFIED TYPE NOT STATED UNCONTROLLED 06/29/2012 ASHANTI MENDES ROCHELLE 401.9 UNSPECIFIED ESSENTIAL HYPERTENSION 06/29/2012 VONTORIN, SERA 250.00 DIABETES MELLITUS WITHOUT MENTION OF COMPLICATION TYPE II OR UNSPECIFIED TYPE NOT STATED UNCONTROLLED 06/29/2012 ADEN ESRA 401.9 UNSPECIFIED ESSENTIAL HYPERTENSION 06/29/2012 ASHANTI FIRST OFFICER AND FLIGHT INSTRUCTOR, ROCHELLE 250.00 DIABETES MELLITUS WITHOUT MENTION OF COMPLICATION TYPE II OR UNSPECIFIED TYPE NOT STATED UNCONTROLLED 06/29/2012 YAN BURRELL APRNA 401.9 UNSPECIFIED ESSENTIAL HYPERTENSION 07/06/2012 PENELOPE WEINSTEIN 272.4 OTHER AND UNSPECIFIED HYPERLIPIDEMIA 07/06/2012 ROCHELLE BURRELL APRN 272.4 OTHER AND UNSPECIFIED HYPERLIPIDEMIA 07/06/2012 IFEANYI FAULKNER MD 272.4 OTHER AND UNSPECIFIED HYPERLIPIDEMIA 07/06/2012 GOLAY FIRST OFF[employer]ER AND FLIGHT INSTRUCTOR, MICHAEL 272.4 OTHER AND UNSPECIFIED HYPERLIPIDEMIA 07/06/2012 ASHANTI FIRST OFFICER AND FLIGHT INSTRUCTOR, ROCHELLE 272.4 OTHER AND UNSPECIFIED HYPERLIPIDEMIA 07/06/2012 ASHANTI FIRST OFFICER AND FLIGHT INSTRUCTOR, ROCHELLE 272.4 OTHER AND UNSPECIFIED HYPERLIPIDEMIA 07/06/2012 ASHANTI FIRST OFFICER AND FLIGHT INSTRUCTOR, ROCHELLE 272.4 OTHER AND UNSPECIFIED HYPERLIPIDEMIA 07/06/2012 ASHANTI FIRST OFFICER AND FLIGHT INSTRUCTOR, ROCHELLE 272.4 OTHER AND UNSPECIFIED HYPERLIPIDEMIA 07/06/2012 ASHANTI FIRST OFFICER AND FLIGHT INSTRUCTOR, ROCHELLE 272.4 OTHER AND UNSPECIFIED HYPERLIPIDEMIA 07/06/2012 BRENT HYLTON 272.4 OTHER AND UNSPECIFIED HYPERLIPIDEMIA 07/06/2012 NGAR DO STEFFANY 272.4 OTHER AND UNSPECIFIED HYPERLIPIDEMIA 07/06/2012 NGAR DO, STEFFANY 272.4 OTHER AND UNSPECIFIED HYPERLIPIDEMIA 07/06/2012 ASHANTI FIRST OFFICER AND FLIGHT INSTRUCTOR, ROCHELLE 272.4 OTHER AND UNSPECIFIED HYPERLIPIDEMIA 07/06/2012 ASHANTI FIRST OFFICER AND FLIGHT INSTRUCTOR, ROCHELLE 272.4 OTHER AND UNSPECIFIED HYPERLIPIDEMIA 07/06/2012 [place] DO 272.4 OTHER AND UNSPECIFIED HYPERLIPIDEMIA 07/06/2012 ASHANTI FIRST OFFICER AND FLIGHT INSTRUCTOR, ROCHELLE 272.4 OTHER AND UNSPECIFIED HYPERLIPIDEMIA 07/06/2012 VONTORIN SERA 272.4 OTHER AND UNSPECIFIED HYPERLIPIDEMIA 07/06/2012 ASHANTI FIRST OFFICER AND FLIGHT INSTRUCTOR, ROCHELLE 272.4 OTHER AND UNSPECIFIED HYPERLIPIDEMIA 07/06/2012 VONDRACEK, SERA 272.4 OTHER AND UNSPECIFIED HYPERLIPIDEMIA 07/06/2012 ASHANTI FIRST OFFICER AND FLIGHT INSTRUCTOR, ROCHELLE 272.4 OTHER AND UNSPECIFIED HYPERLIPIDEMIA 07/20/2012 PENELOPE WEINSTEIN 300.00 ANXIETY STATE UNSPECIFIED 07/20/2012 ASHANTI TEJADAN, ROCHELLE 300.00 ANXIETY STATE UNSPECIFIED 07/20/2012 IFEANYI FAULKNER MD 300.00 ANXIETY STATE UNSPECIFIED 07/20/2012 TRENT FIRST OFFICER AND FLIGHT INSTRUCTOR, MICHAEL 300.00 ANXIETY STATE UNSPECIFIED 07/20/2012 ASHANTI FIRST OFFICER AND FLIGHT INSTRUCTOR, ROCHELLE 300.00 ANXIETY STATE UNSPECIFIED 07/20/2012 ASHANTI FIRST OFFICER AND FLIGHT INSTRUCTOR, ROCHELLE 300.00 ANXIETY STATE UNSPECIFIED 07/20/2012 ASHANTI FIRST OFFICER AND FLIGHT INSTRUCTOR, ROCHELLE 300.00 ANXIETY STATE UNSPECIFIED 07/20/2012 ASHANTI FIRST OFFICER AND FLIGHT INSTRUCTOR, ROCHELLE 300.00 ANXIETY STATE UNSPECIFIED 07/20/2012 ASHANTI FIRST OFFICER AND FLIGHT INSTRUCTOR, ROCHELLE 300.00 ANXIETY STATE UNSPECIFIED 07/20/2012 BRENT HYLTON 300.00 ANXIETY STATE UNSPECIFIED 07/20/2012 NGAR DO, STEFFANY 300.00 ANXIETY STATE UNSPECIFIED 07/20/2012 NGAR DO, STEFFANY 300.00 ANXIETY STATE UNSPECIFIED 07/20/2012 ASHANTI [employer]CTOR, ROCHELLE 300.00 ANXIETY STATE UNSPECIFIED 07/20/2012 ASHANTI TEJADAN, ROCHELLE 300.00 ANXIETY STATE UNSPECIFIED 07/20/2012 [place] DO 300.00 ANXIETY STATE UNSPECIFIED 07/20/2012 AHSANTI [employer]CTOR, ROCHELLE 300.00 ANXIETY STATE UNSPECIFIED 07/20/2012 ADEN SERA 300.00 ANXIETY STATE UNSPECIFIED 07/20/2012 ASHANTI [employer], ROCHELLE 300.00 ANXIETY STATE UNSPECIFIED 07/20/2012 ADEN, SERA 300.00 ANXIETY STATE UNSPECIFIED 07/20/2012 ASHANTI MENDES, ROCHELLE 300.00 ANXIETY STATE UNSPECIFIED 07/26/2012 PENELOPE WEINSTEIN 784.0 HEADACHE 07/26/2012 PENELOPE WEINSTEIN 786.09 RESPIRATORY ABNORMALITY OTHER 07/26/2012 ASHANTI [employer], ROCHELLE 784.0 HEADACHE 07/26/2012 ASHANTI MENDES, ROCHELLE 786.09 RESPIRATORY ABNORMALITY OTHER 07/26/2012 IFEANYI FAULKNER MD 784.0 HEADACHE 07/26/2012 IFEANYI FAULKNER MD 786.09 RESPIRATORY ABNORMALITY OTHER 07/26/2012 GOLMIKE [employer]CTOR, MICHAEL 784.0 HEADACHE 07/26/2012 GOLMIKE [employer] INSTRUCTOR, MICHAEL 786.09 RESPIRATORY ABNORMALITY OTHER 07/26/2012 ASHANTI [employer] INSTRUCTOR, ROCHELLE 784.0 HEADACHE 07/26/2012 ASHANTI [employer] INSTRUCTOR, ROCHELLE 786.09 RESPIRATORY ABNORMALITY OTHER 07/26/2012 ASHANTI FIRST [employer] INSTRUCTOR, ROCHELLE 784.0 HEADACHE 07/26/2012 ASHANTI [employer] OFF[employer] AND [employer] INSTRUCTOR, ROCHELLE 786.09 RESPIRATORY ABNORMALITY OTHER 07/26/2012 ASHANTI [employer] INSTRUCTOR, ROCHELLE 784.0 HEADACHE 07/26/2012 ASHANTI FIRST [employer] AND [employer] INSTRUCTOR, ROCHELLE 786.09 RESPIRATORY ABNORMALITY OTHER 07/26/2012 ASHANTI [employer] INSTRUCTOR, ROCHELLE 784.0 HEADACHE 07/26/2012 ASHANTI [employer] INSTRUCTOR, ROCHELLE 786.09 RESPIRATORY ABNORMALITY OTHER 07/26/2012 ASHANTI [employer] IN[employer]CTOR, ROCHELLE 784.0 HEADACHE 07/26/2012 ASHANTI [employer] INSTRUCTOR, ROCHELLE 786.09 RESPIRATORY ABNORMALITY OTHER 07/26/2012 BRENT HYLTON 784.0 HEADACHE 07/26/2012 BRENT HYLTON 786.09 RESPIRATORY ABNORMALITY OTHER 07/26/2012 NGAR DO, STEFFANY 784.0 HEADACHE 07/26/2012 NGAR DO, STEFFANY 786.09 RESPIRATORY ABNORMALITY OTHER 07/26/2012 NGAR DO, STEFFANY 784.0 HEADACHE 07/26/2012 NGAR DO, STEFFANY 786.09 RESPIRATORY ABNORMALITY OTHER 07/26/2012 ASHANTI [employer], ROCHELLE 784.0 HEADACHE 07/26/2012 ASHANTI FIRST OFFIC[employer] AND FLIGHT INSTRUCTOR, ROCHELLE 786.09 RESPIRATORY ABNORMALITY OTHER 07/26/2012 ASHANTI FIRST OFF[employer] AND FLIGHT INSTRUCTOR, ROCHELLE 784.0 HEADACHE 07/26/2012 ASHANTI FIRST OFFICER AND FLIGHT INSTRUCTOR, ROCHELLE 786.09 RESPIRATORY ABNORMALITY OTHER 07/26/2012 SWADE DO, TERA 784.0 HEADACHE 07/26/2012 SWADE DO, TERA 786.09 RESPIRATORY ABNORMALITY OTHER 07/26/2012 ASHANTI FIRST OFFICER AND FLIGHT INSTRUCTOR, ROCHELLE 784.0 HEADACHE 07/26/2012 ASHANTI FIRST OFFICER AND FLIGHT INSTRUCTOR, ROCHELLE 786.09 RESPIRATORY ABNORMALITY OTHER 07/26/2012 VONDRACEK, SERA 784.0 HEADACHE 07/26/2012 VONDRACEK, SERA 786.09 RESPIRATORY ABNORMALITY OTHER 07/26/2012 ASHANTI FIRST OFFICER AND FLIGHT INSTRUCTOR, ROCHELLE 784.0 HEADACHE 07/26/2012 ASHANTI FIRST OFFICER AND FLIGHT INSTRUCTOR, ROCHELLE 786.09 RESPIRATORY ABNORMALITY OTHER 07/26/2012 VONDRACEK, SERA 784.0 HEADACHE 07/26/2012 VONDRACEK, SERA 786.09 RESPIRATORY ABNORMALITY OTHER 07/26/2012 ASHANTI FIRST OFFICER AND FLIGHT INSTRUCTOR, ROCHELLE 784.0 HEADACHE 07/26/2012 ASHANTI FIRST OFFICER AND FLIGHT INSTRUCTOR, ROCHELLE 786.09 RESPIRATORY ABNORMALITY OTHER 08/22/2012 LOS MERLOS, FRANCY Morocho Ot 780.4 08/22/2012 LOS MERLOS, FRANCY Morocho Ot 780.79 08/22/2012 LOS MERLOS, FRANCY Morocho Ot 786.05 08/22/2012 LOS MERLOS, FRANCY Morocho Ot 786.09 09/21/2012 GAUDENCIO STEWART DO 786.05 SHORTNESS OF BREATH 09/21/2012 GAUDENCIO STEWART DO V15.09 PERSONAL HISTORY OF OTHER ALLERGY OTHER THAN TO MEDICINAL AGENTS 10/12/2012 GAUDENCIO STEWART DO 626.9 Menstruation And Other Abnormal Bleeding From Female Genital Tract 12/07/2012 PENELOPE WEINSTEIN 296.22 MAJOR DEPRESSIVE AFFECTIVE DISORDER SINGLE EPISODE MODERATE DEGREE 12/07/2012 PENELOPE WEINSTEIN 386.11 BENIGN PAROXYSMAL POSITIONAL VERTIGO 12/07/2012 PENELOPE WEINSTEIN 729.1 MYALGIA AND MYOSITIS UNSPECIFIED 12/07/2012 ASHANTI MENDES ROCHELLE 296.22 MAJOR DEPRESSIVE AFFECTIVE DISORDER SINGLE EPISODE MODERATE DEGREE 12/07/2012 ASHANTI MENDES ROCHELLE 386.11 BENIGN PAROXYSMAL POSITIONAL VERTIGO 12/07/2012 ASHANTI MENDES ROCHELLE 729.1 MYALGIA AND MYOSITIS UNSPECIFIED 12/07/2012 IFEANYI FAULKNER MD 296.22 MAJOR DEPRESSIVE AFFECTIVE DISORDER SINGLE EPISODE MODERATE DEGREE 12/07/2012 IFEANYI FAULKNER MD 386.11 BENIGN PAROXYSMAL POSITIONAL VERTIGO 12/07/2012 IFEANYI FAULKNER MD 729.1 MYALGIA AND MYOSITIS UNSPECIFIED 12/07/2012 MICHAEL NEWMAN APRN 296.22 MAJOR DEPRESSIVE AFFECTIVE DISORDER SINGLE EPISODE MODERATE DEGREE 12/07/2012 MICHAEL NEWMAN APRN 386.11 BENIGN PAROXYSMAL POSITIONAL VERTIGO 12/07/2012 MICHAEL NEWMAN APRN 729.1 MYALGIA AND MYOSITIS UNSPECIFIED 12/07/2012 YAN BURRELL APRNA 296.22 MAJOR DEPRESSIVE AFFECTIVE DISORDER SINGLE EPISODE MODERATE DEGREE 12/07/2012 ASHANTI MENDES ROCHELLE 386.11 BENIGN PAROXYSMAL POSITIONAL VERTIGO 12/07/2012 ASHANTI MENDES ROCHELLE 729.1 MYALGIA AND MYOSITIS UNSPECIFIED 12/07/2012 YAN BURRELL APRNA 296.22 MAJOR DEPRESSIVE AFFECTIVE DISORDER SINGLE EPISODE MODERATE DEGREE 12/07/2012 ASHANTI MENDES ROCHELLE 386.11 BENIGN PAROXYSMAL POSITIONAL VERTIGO 12/07/2012 ASHANTI MENDES ROCHELLE 729.1 MYALGIA AND MYOSITIS UNSPECIFIED 12/07/2012 ASHANTI MENDES ROCHLELE 296.22 MAJOR DEPRESSIVE AFFECTIVE DISORDER SINGLE EPISODE MODERATE DEGREE 12/07/2012 ASHANTI MENDES ROCHELLE 386.11 BENIGN PAROXYSMAL POSITIONAL VERTIGO 12/07/2012 ASHANTI MENDES ROCHELLE 729.1 MYALGIA AND MYOSITIS UNSPECIFIED 12/07/2012 ASHANTI MENDES ROCHELLE 296.22 MAJOR DEPRESSIVE AFFECTIVE DISORDER SINGLE EPISODE MODERATE DEGREE 12/07/2012 ASHANTI MENDES, ROCHELLE 386.11 BENIGN PAROXYSMAL POSITIONAL VERTIGO 12/07/2012 ASHANTI MENDES, ROCHELLE 729.1 MYALGIA AND MYOSITIS UNSPECIFIED 12/07/2012 AHSANTI MENDES, ROCHELLE 296.22 MAJOR DEPRESSIVE AFFECTIVE DISORDER SINGLE EPISODE MODERATE DEGREE 12/07/2012 ASHANTI MENDES, ROCHELLE 386.11 BENIGN PAROXYSMAL POSITIONAL VERTIGO 12/07/2012 ASHANTI MENDES ROCHELLE 729.1 MYALGIA AND MYOSITIS UNSPECIFIED 12/07/2012 BRENT HYLTON 296.22 MAJOR DEPRESSIVE AFFECTIVE DISORDER SINGLE EPISODE MODERATE DEGREE 12/07/2012 BRENT HYLTON 386.11 BENIGN PAROXYSMAL POSITIONAL VERTIGO 12/07/2012 BRENT HYLTON 729.1 MYALGIA AND MYOSITIS UNSPECIFIED 12/07/2012 NGAR DO, STEFFANY 296.22 MAJOR DEPRESSIVE AFFECTIVE DISORDER SINGLE EPISODE MODERATE DEGREE 12/07/2012 NGAR DO, STEFFANY 386.11 BENIGN PAROXYSMAL POSITIONAL VERTIGO 12/07/2012 NGMAG COELLO DOGIE 729.1 MYALGIA AND MYOSITIS UNSPECIFIED 12/07/2012 NGAR DO STEFFANY 296.22 MAJOR DEPRESSIVE AFFECTIVE DISORDER SINGLE EPISODE MODERATE DEGREE 12/07/2012 NGAR DO, STEFFANY 386.11 BENIGN PAROXYSMAL POSITIONAL VERTIGO 12/07/2012 NGMODE ISBELL STEFFANY 729.1 MYALGIA AND MYOSITIS UNSPECIFIED 12/07/2012 ASHANTI MENDES, ROCHELLE 296.22 MAJOR DEPRESSIVE AFFECTIVE DISORDER SINGLE EPISODE MODERATE DEGREE 12/07/2012 ASHANTI MENDES ROCHELLE 386.11 BENIGN PAROXYSMAL POSITIONAL VERTIGO 12/07/2012 ASHANTI MENDES ROCHELLE 729.1 MYALGIA AND MYOSITIS UNSPECIFIED 12/07/2012 ASHANTI MENDES ROCHELLE 296.22 MAJOR DEPRESSIVE AFFECTIVE DISORDER SINGLE EPISODE MODERATE DEGREE 12/07/2012 ASHANTI MENDES, ROCHELLE 386.11 BENIGN PAROXYSMAL POSITIONAL VERTIGO 12/07/2012 ASHANTI MENDES, ROCHELLE 729.1 MYALGIA AND MYOSITIS UNSPECIFIED 12/07/2012 TERA RIVER DO 296.22 MAJOR DEPRESSIVE AFFECTIVE DISORDER SINGLE EPISODE MODERATE DEGREE 12/07/2012 TERA RIVER DO 386.11 BENIGN PAROXYSMAL POSITIONAL VERTIGO 12/07/2012 TERA RIVER DO 729.1 MYALGIA AND MYOSITIS UNSPECIFIED 12/07/2012 YAN BURRELL APRNA 296.22 MAJOR DEPRESSIVE AFFECTIVE DISORDER SINGLE EPISODE MODERATE DEGREE 12/07/2012 YAN BURRELL APRNA 386.11 BENIGN PAROXYSMAL POSITIONAL VERTIGO 12/07/2012 YAN BURRELL APRNA 729.1 MYALGIA AND MYOSITIS UNSPECIFIED 12/07/2012 SAMMIE SAMANIEGOA 296.22 MAJOR DEPRESSIVE AFFECTIVE DISORDER SINGLE EPISODE MODERATE DEGREE 12/07/2012 SAMMIE SAMANIEGOA 386.11 BENIGN PAROXYSMAL POSITIONAL VERTIGO 12/07/2012 SAMMIE SAMANIEGOA 729.1 MYALGIA AND MYOSITIS UNSPECIFIED 12/07/2012 YAN BURRELL APRNA 296.22 MAJOR DEPRESSIVE AFFECTIVE DISORDER SINGLE EPISODE MODERATE DEGREE 12/07/2012 YAN BURRELL APRNA 386.11 BENIGN PAROXYSMAL POSITIONAL VERTIGO 12/07/2012 ROCHELLE BURRELL APRN 729.1 MYALGIA AND MYOSITIS UNSPECIFIED 12/07/2012 SERA SAMANIEGO 296.22 MAJOR DEPRESSIVE AFFECTIVE DISORDER SINGLE EPISODE MODERATE DEGREE 12/07/2012 SAMMIE SAMANIEGOA 386.11 BENIGN PAROXYSMAL POSITIONAL VERTIGO 12/07/2012 SERA SAMANIEGO 729.1 MYALGIA AND MYOSITIS UNSPECIFIED 12/07/2012 ROCHELLE BURRELL APRN 296.22 MAJOR DEPRESSIVE AFFECTIVE DISORDER SINGLE EPISODE MODERATE DEGREE 12/07/2012 YAN BURRELL APRNA 386.11 BENIGN PAROXYSMAL POSITIONAL VERTIGO 12/07/2012 ROCHELLE BURRELL APRN 729.1 MYALGIA AND MYOSITIS UNSPECIFIED 03/03/2013 PENELOPE WEINSTEIN M Ot 327.23 03/22/2013 ROCHELLE BURRELL APRN 626.9 UNSPECIFIED DISORDERS OF MENSTRUATION AND OTHER ABNORMAL BLEEDING FROM FEMALE GENITAL TRACT 03/22/2013 ROCHELLE BURRELL APRN 789.00 ABDOMINAL PAIN UNSPECIFIED SITE 03/22/2013 IFEANYI FAULKNER MD 626.9 UNSPECIFIED DISORDERS OF MENSTRUATION AND OTHER ABNORMAL BLEEDING FROM FEMALE GENITAL TRACT 03/22/2013 IFEANYI FAULKNER MD 789.00 ABDOMINAL PAIN UNSPECIFIED SITE 03/22/2013 MICHAEL NEWMAN APRN 626.9 UNSPECIFIED DISORDERS OF MENSTRUATION AND OTHER ABNORMAL BLEEDING FROM FEMALE GENITAL TRACT 03/22/2013 GOLAY FIRST OFFICER AND FLIGHT INSTRUCTOR, MICHAEL 789.00 ABDOMINAL PAIN UNSPECIFIED SITE 03/22/2013 ASHANTI MENDES, ROCHELLE 626.9 UNSPECIFIED DISORDERS OF MENSTRUATION AND OTHER ABNORMAL BLEEDING FROM FEMALE GENITAL TRACT 03/22/2013 ASHANTI MENDES, ROCHELLE 789.00 ABDOMINAL PAIN UNSPECIFIED SITE 03/22/2013 ASHANTI MENDES, ROCHELLE 626.9 UNSPECIFIED DISORDERS OF MENSTRUATION AND OTHER ABNORMAL BLEEDING FROM FEMALE GENITAL TRACT 03/22/2013 ASHANTI MENDES ROCHELLE 789.00 ABDOMINAL PAIN UNSPECIFIED SITE 03/22/2013 ASHANTI MENDES ROCHELLE 626.9 UNSPECIFIED DISORDERS OF MENSTRUATION AND OTHER ABNORMAL BLEEDING FROM FEMALE GENITAL TRACT 03/22/2013 ASHANTI MENDES, ROCHELLE 789.00 ABDOMINAL PAIN UNSPECIFIED SITE 03/22/2013 ASHANTI MENDES ROCHELLE 626.9 UNSPECIFIED DISORDERS OF MENSTRUATION AND OTHER ABNORMAL BLEEDING FROM FEMALE GENITAL TRACT 03/22/2013 ASHANTI MENDES ROCHELLE 789.00 ABDOMINAL PAIN UNSPECIFIED SITE 03/22/2013 YAN BURRELL APRNA 626.9 UNSPECIFIED DISORDERS OF MENSTRUATION AND OTHER ABNORMAL BLEEDING FROM FEMALE GENITAL TRACT 03/22/2013 ASHANTI MENDES ROCHELLE 789.00 ABDOMINAL PAIN UNSPECIFIED SITE 03/22/2013 BRENT HYLTON 626.9 UNSPECIFIED DISORDERS OF MENSTRUATION AND OTHER ABNORMAL BLEEDING FROM FEMALE GENITAL TRACT 03/22/2013 BRENT HYLTON 789.00 ABDOMINAL PAIN UNSPECIFIED SITE 03/22/2013 NGAR DO STEFFANY 626.9 UNSPECIFIED DISORDERS OF MENSTRUATION AND OTHER ABNORMAL BLEEDING FROM FEMALE GENITAL TRACT 03/22/2013 NGAR DO, STEFFANY 789.00 ABDOMINAL PAIN UNSPECIFIED SITE 03/22/2013 NGAR DO, STEFFANY 626.9 UNSPECIFIED DISORDERS OF MENSTRUATION AND OTHER ABNORMAL BLEEDING FROM FEMALE GENITAL TRACT 03/22/2013 NGAR DO, STEFFANY 789.00 ABDOMINAL PAIN UNSPECIFIED SITE 03/22/2013 ASHANTI MENDES ROCHELLE 626.9 UNSPECIFIED DISORDERS OF MENSTRUATION AND OTHER ABNORMAL BLEEDING FROM FEMALE GENITAL TRACT 03/22/2013 ASHANTI MENDES ROCHELLE 789.00 ABDOMINAL PAIN UNSPECIFIED SITE 03/22/2013 ASHANTI MENDES ROCHELLE 626.9 UNSPECIFIED DISORDERS OF MENSTRUATION AND OTHER ABNORMAL BLEEDING FROM FEMALE GENITAL TRACT 03/22/2013 ASHANTI FIRST OFFICER AND FLIGHT INSTRUCTOR, ROCHELLE 789.00 ABDOMINAL PAIN UNSPECIFIED SITE 03/22/2013 ALETA DO, TERA 626.9 UNSPECIFIED DISORDERS OF MENSTRUATION AND OTHER ABNORMAL BLEEDING FROM FEMALE GENITAL TRACT 03/22/2013 ALETA DO, TERA 789.00 ABDOMINAL PAIN UNSPECIFIED SITE 03/22/2013 ASHANTI MENDES, ROCHELLE 626.9 UNSPECIFIED DISORDERS OF MENSTRUATION AND OTHER ABNORMAL BLEEDING FROM FEMALE GENITAL TRACT 03/22/2013 ASHANTI MENDES, ROCHELLE 789.00 ABDOMINAL PAIN UNSPECIFIED SITE 03/22/2013 SERA SAMANIEGO 626.9 UNSPECIFIED DISORDERS OF MENSTRUATION AND OTHER ABNORMAL BLEEDING FROM FEMALE GENITAL TRACT 03/22/2013 ADEN, SERA 789.00 ABDOMINAL PAIN UNSPECIFIED SITE 03/22/2013 YAN BURRELL APRNA 626.9 UNSPECIFIED DISORDERS OF MENSTRUATION AND OTHER ABNORMAL BLEEDING FROM FEMALE GENITAL TRACT 03/22/2013 ASHANTI MENDES, ROCHELLE 789.00 ABDOMINAL PAIN UNSPECIFIED SITE 03/22/2013 SERA SAMANIEGO 626.9 UNSPECIFIED DISORDERS OF MENSTRUATION AND OTHER ABNORMAL BLEEDING FROM FEMALE GENITAL TRACT 03/22/2013 ADEN SERA 789.00 ABDOMINAL PAIN UNSPECIFIED SITE 03/22/2013 ASHANTI MENDES ROCHELLE 626.9 UNSPECIFIED DISORDERS OF MENSTRUATION AND OTHER ABNORMAL BLEEDING FROM FEMALE GENITAL TRACT 03/22/2013 ASHANTI MENDES, ROCHELLE 789.00 ABDOMINAL PAIN UNSPECIFIED SITE 04/27/2013 IFEANYI FAULKNER MD 780.57 SLEEP APNEA 04/27/2013 MICHAEL NEWMAN APRN 780.57 SLEEP APNEA 04/27/2013 ASHANTI MENDES ROCHELLE 780.57 SLEEP APNEA 04/27/2013 ASHANTI MENDES, ROCHELLE 780.57 SLEEP APNEA 04/27/2013 ASHANTI MENDES ROCHELLE 780.57 SLEEP APNEA 04/27/2013 YAN BURRELL APRNA 780.57 SLEEP APNEA 04/27/2013 ASHANTI MENDES, ROCHELLE 780.57 SLEEP APNEA 04/27/2013 BRENT HYLTON 780.57 SLEEP APNEA 04/27/2013 STEFFANY JUAREZ DO 780.57 SLEEP APNEA 04/27/2013 STEFFANY JUAREZ DO 780.57 SLEEP APNEA 04/27/2013 ASHANTI MENDES ROCHELLE 780.57 SLEEP APNEA 04/27/2013 ASHANTI FIRST OFFICER AND FLIGHT INSTRUCTOR, ROCHELLE 780.57 SLEEP APNEA 04/27/2013 TERA RIVER DO 780.57 SLEEP APNEA 04/27/2013 ASHANTI MENDES, ROCHELLE 780.57 SLEEP APNEA 04/27/2013 SERA SAMANIEGO 780.57 SLEEP APNEA 04/27/2013 ASHANTI MENDES, ROCHELLE 780.57 SLEEP APNEA 04/27/2013 ADEN SERA 780.57 SLEEP APNEA 04/27/2013 ASHANTI MENDES, ROCHELLE 780.57 SLEEP APNEA 07/05/2013 ASHANTI MENDES, ROCHELLE 611.72 LUMP OR MASS IN BREAST 07/05/2013 ASHANTI MENDES, ROCHELLE 780.79 OTHER MALAISE AND FATIGUE 07/05/2013 ASHANTI MENDES ROCHELLE V69.2 HIGH-RISK SEXUAL BEHAVIOR 07/05/2013 ASHANTI MENDES ROCHELLE 611.72 LUMP OR MASS IN BREAST 07/05/2013 ASHANTI MENDES ROCHELLE 780.79 OTHER MALAISE AND FATIGUE 07/05/2013 ASHANTI MENDES ROCHELLE V69.2 HIGH-RISK SEXUAL BEHAVIOR 07/05/2013 ASHANTI MENDES, ROCHELLE 611.72 LUMP OR MASS IN BREAST 07/05/2013 ASHANTI MENDES ROCHELLE 780.79 OTHER MALAISE AND FATIGUE 07/05/2013 ASHANTI MENDES ROCHELLE V69.2 HIGH-RISK SEXUAL BEHAVIOR 07/05/2013 ASHANTI MENDES ROCHELLE 611.72 LUMP OR MASS IN BREAST 07/05/2013 ASHANTI MENDES ROCHELLE 780.79 OTHER MALAISE AND FATIGUE 07/05/2013 ASHANTI MENDES ROCHELLE V69.2 HIGH-RISK SEXUAL BEHAVIOR 07/05/2013 ASHANTI MENDES ROCHELLE 611.72 LUMP OR MASS IN BREAST 07/05/2013 ASHANTI MENDES ROCHELLE 780.79 OTHER MALAISE AND FATIGUE 07/05/2013 ASHANTI MENDES ROCHELLE V69.2 HIGH-RISK SEXUAL BEHAVIOR 07/05/2013 BRENT HYLTON 611.72 LUMP OR MASS IN BREAST 07/05/2013 BRENT HYLTON 780.79 OTHER MALAISE AND FATIGUE 07/05/2013 BRENT HYLTON V69.2 HIGH-RISK SEXUAL BEHAVIOR 07/05/2013 NGAR DO, STEFFANY 611.72 LUMP OR MASS IN BREAST 07/05/2013 NGAR DO, STEFFANY 780.79 OTHER MALAISE AND FATIGUE 07/05/2013 NGAR DO, STEFFANY V69.2 HIGH-RISK SEXUAL BEHAVIOR 07/05/2013 NGAR DO, STEFFANY 611.72 LUMP OR MASS IN BREAST 07/05/2013 NGAR DO, STEFFANY 780.79 OTHER MALAISE AND FATIGUE 07/05/2013 AR DO, STEFFANY V69.2 HIGH-RISK SEXUAL BEHAVIOR 07/05/2013 ASHANTI FIRST OFFICER AND FLIGHT INSTRUCTOR, ROCHELLE 611.72 LUMP OR MASS IN BREAST 07/05/2013 ASHANTI FIRST OFFICER AND FLIGHT INSTRUCTOR, ROCHELLE 780.79 OTHER MALAISE AND FATIGUE 07/05/2013 ASHANTI TEJADAN, ROCHELLE V69.2 HIGH-RISK SEXUAL BEHAVIOR 07/05/2013 ASHANTI FIRST OFFICER AND FLIGHT INSTRUCTOR, ROCHELLE 611.72 LUMP OR MASS IN BREAST 07/05/2013 ASHANTI TEJADAN, ROCHELLE 780.79 OTHER MALAISE AND FATIGUE 07/05/2013 ASHANTI TEJADAN, ROCHELLE V69.2 HIGH-RISK SEXUAL BEHAVIOR 07/05/2013 TERA RIVER DO 611.72 LUMP OR MASS IN BREAST 07/05/2013 TERA RIVER DO 780.79 OTHER MALAISE AND FATIGUE 07/05/2013 TERA RIVER DO V69.2 HIGH-RISK SEXUAL BEHAVIOR 07/05/2013 ASHANTI TEJADAN, ROCHELLE 611.72 LUMP OR MASS IN BREAST 07/05/2013 ASHANTI TEJADAN, ROCHELLE 780.79 OTHER MALAISE AND FATIGUE 07/05/2013 ASHANTI TEJADAN, ROCHELLE V69.2 HIGH-RISK SEXUAL BEHAVIOR 07/05/2013 ADEN SERA 611.72 LUMP OR MASS IN BREAST 07/05/2013 ADEN SERA 780.79 OTHER MALAISE AND FATIGUE 07/05/2013 ADEN SERA V69.2 HIGH-RISK SEXUAL BEHAVIOR 07/05/2013 ASHANTI TEJADAN, ROCHELLE 611.72 LUMP OR MASS IN BREAST 07/05/2013 ASHANTI TEJADAN ROCHELLE 780.79 OTHER MALAISE AND FATIGUE 07/05/2013 ASHANTI TEJADAN, ROCHELLE V69.2 HIGH-RISK SEXUAL BEHAVIOR 07/05/2013 SERA SAMANIEGO 611.72 LUMP OR MASS IN BREAST 07/05/2013 ADEN SERA 780.79 OTHER MALAISE AND FATIGUE 07/05/2013 SAMMIE SAMANIEGOA V69.2 HIGH-RISK SEXUAL BEHAVIOR 07/05/2013 ASHANTI MENDES, ROCHELLE 611.72 LUMP OR MASS IN BREAST 07/05/2013 ASHANTI FIRST OFFICER AND FLIGHT INSTRUCTOR, ROCHELLE 780.79 OTHER MALAISE AND FATIGUE 07/05/2013 ASHANTI TEJADAN, ROCHELLE V69.2 HIGH-RISK SEXUAL BEHAVIOR 09/11/2013 ASHANTI FIRST OFFICER AND FLIGHT INSTRUCTOR, ROCHELLE 493.90 ASTHMA UNSPECIFIED 09/11/2013 ASHANTI FIRST OFFICER AND FLIGHT INSTRUCTOR, ROCHELLE 530.81 ESOPHAGEAL REFLUX 09/11/2013 ASHANTI FIRST OFFICER AND FLIGHT INSTRUCTOR, ROCHELLE 786.50 UNSPECIFIED CHEST PAIN 09/11/2013 ASHANTI FIRST OFFICER AND FLIGHT INSTRUCTOR, ROCHELLE 493.90 ASTHMA UNSPECIFIED 09/11/2013 ASHANTI FIRST OFFICER AND FLIGHT INSTRUCTOR, ROCHELLE 530.81 ESOPHAGEAL REFLUX 09/11/2013 ASHANTI TEJADAN, ROCHELLE 786.50 UNSPECIFIED CHEST PAIN 09/11/2013 ASHANTI FIRST OFFICER AND FLIGHT INSTRUCTOR, ROCHELLE 493.90 ASTHMA UNSPECIFIED 09/11/2013 ASHANTI FIRST OFFICER AND FLIGHT INSTRUCTOR, ROCHELLE 530.81 ESOPHAGEAL REFLUX 09/11/2013 ASHANTI FIRST OFFICER AND FLIGHT INSTRUCTOR, ROCHELLE 786.50 UNSPECIFIED CHEST PAIN 09/11/2013 BRENT HYLTON 493.90 ASTHMA UNSPECIFIED 09/11/2013 BRENT HYLTON 530.81 ESOPHAGEAL REFLUX 09/11/2013 BRENT HYLTON 786.50 UNSPECIFIED CHEST PAIN 09/11/2013 NGAR DOMAGSTEFFANY 493.90 ASTHMA UNSPECIFIED 09/11/2013 NGAR DO, STEFFANY 530.81 ESOPHAGEAL REFLUX 09/11/2013 NGAR DO, STEFFANY 786.50 UNSPECIFIED CHEST PAIN 09/11/2013 NGAR DO, STEFFANY 493.90 ASTHMA UNSPECIFIED 09/11/2013 NGAR DO, STEFFANY 530.81 ESOPHAGEAL REFLUX 09/11/2013 NGAR DO STEFFANY 786.50 UNSPECIFIED CHEST PAIN 09/11/2013 ASHANTI FIRST OFFICER AND FLIGHT INSTRUCTOR, ROCHELLE 493.90 ASTHMA UNSPECIFIED 09/11/2013 ASHANTI FIRST OFFICER AND FLIGHT INSTRUCTOR, ROCHELLE 530.81 ESOPHAGEAL REFLUX 09/11/2013 ASHANTI TEJADAN, ROCHELLE 786.50 UNSPECIFIED CHEST PAIN 09/11/2013 ASHANTI FIRST OFFICER AND FLIGHT INSTRUCTOR, ROCHELLE 493.90 ASTHMA UNSPECIFIED 09/11/2013 ASHANTI FIRST OFFICER AND FLIGHT INSTRUCTOR, ROCHELLE 530.81 ESOPHAGEAL REFLUX 09/11/2013 ASHANTI FIRST OFFICER AND FLIGHT INSTRUCTOR, ROCHELLE 786.50 UNSPECIFIED CHEST PAIN 09/11/2013 SWADE DO, TERA 493.90 ASTHMA UNSPECIFIED 09/11/2013 SWADE DO, TERA 530.81 ESOPHAGEAL REFLUX 09/11/2013 SWADE DO, TERA 786.50 UNSPECIFIED CHEST PAIN 09/11/2013 ASHANTI FIRST OFFICER AND FLIGHT INSTRUCTOR, ROCHELLE 493.90 ASTHMA UNSPECIFIED 09/11/2013 ASHANTI FIRST OFFICER AND FLIGHT INSTRUCTOR, ROCHELLE 530.81 ESOPHAGEAL REFLUX 09/11/2013 ASHANTI FIRST OFFICER AND FLIGHT INSTRUCTOR, ROCHELLE 786.50 UNSPECIFIED CHEST PAIN 09/11/2013 VONDRACEK, SERA 493.90 ASTHMA UNSPECIFIED 09/11/2013 VONDRACEK, SERA 530.81 ESOPHAGEAL REFLUX 09/11/2013 VONDRACEK, SERA 786.50 UNSPECIFIED CHEST PAIN 09/11/2013 ASHANTI FIRST OFFICER AND FLIGHT INSTRUCTOR, ROCHELLE 493.90 ASTHMA UNSPECIFIED 09/11/2013 ASHANTI FIRST OFFICER AND FLIGHT INSTRUCTOR, ROCHELLE 530.81 ESOPHAGEAL REFLUX 09/11/2013 ASHANTI FIRST OFFICER AND FLIGHT INSTRUCTOR, ROCHELLE 786.50 UNSPECIFIED CHEST PAIN 09/11/2013 VONDRACEK, SERA 493.90 ASTHMA UNSPECIFIED 09/11/2013 VONDRACEK, SERA 530.81 ESOPHAGEAL REFLUX 09/11/2013 VONDRACEK, SERA 786.50 UNSPECIFIED CHEST PAIN 09/11/2013 ASHANTI FIRST OFFICER AND FLIGHT INSTRUCTOR, ROCHELLE 493.90 ASTHMA UNSPECIFIED 09/11/2013 ASHANTI FIRST OFFICER AND FLIGHT INSTRUCTOR, ROCHELLE 530.81 ESOPHAGEAL REFLUX 09/11/2013 ASHANTI FIRST OFFICER AND FLIGHT INSTRUCTOR, ROCHELLE 786.50 UNSPECIFIED CHEST PAIN 11/24/2013 BRENT HYLTON 112.1 CANDIDIASIS OF VULVA AND VAGINA 11/24/2013 BRENT HYLTON 296.80 BIPOLAR DISORDER UNSPECIFIED 11/24/2013 BRENT HYLTON 301.83 BORDERLINE PERSONALITY DISORDER 11/24/2013 STEFFANY JUAREZ DO 112.1 CANDIDIASIS OF VULVA AND VAGINA 11/24/2013 STEFFANY JUAREZ DO 296.80 BIPOLAR DISORDER UNSPECIFIED 11/24/2013 STEFFANY JUAREZ DO 301.83 BORDERLINE PERSONALITY DISORDER 11/24/2013 STEFFANY JUAREZ DO 112.1 CANDIDIASIS OF VULVA AND VAGINA 11/24/2013 STEFFANY JUAREZ DO 296.80 BIPOLAR DISORDER UNSPECIFIED 11/24/2013 STEFFANY JUAREZ DO 301.83 BORDERLINE PERSONALITY DISORDER 11/24/2013 ROCHELLE BURRELL APRN 112.1 CANDIDIASIS OF VULVA AND VAGINA 11/24/2013 ROCHELLE BURRELL APRN 296.80 BIPOLAR DISORDER UNSPECIFIED 11/24/2013 ROCHELLE BURRELL APRN 301.83 BORDERLINE PERSONALITY DISORDER 11/24/2013 ROCHELLE BURRELL APRN 112.1 CANDIDIASIS OF VULVA AND VAGINA 11/24/2013 ROCHELLE BURRELL APRN 296.80 BIPOLAR DISORDER UNSPECIFIED 11/24/2013 ROCHELLE BURRELL APRN 301.83 BORDERLINE PERSONALITY DISORDER 11/24/2013 TERA RIVER DO 112.1 CANDIDIASIS OF VULVA AND VAGINA 11/24/2013 TERA RIVER DO 296.80 BIPOLAR DISORDER UNSPECIFIED 11/24/2013 TERA RIVER DO 301.83 BORDERLINE PERSONALITY DISORDER 11/24/2013 ROCHELLE BURRELL APRN 112.1 CANDIDIASIS OF VULVA AND VAGINA 11/24/2013 ROCHELLE BURRELL APRN 296.80 BIPOLAR DISORDER UNSPECIFIED 11/24/2013 ROCHELLE BURRELL APRN 301.83 BORDERLINE PERSONALITY DISORDER 11/24/2013 SERA SAMANIEGO 112.1 CANDIDIASIS OF VULVA AND VAGINA 11/24/2013 SERA SAMANIEGO 296.80 BIPOLAR DISORDER UNSPECIFIED 11/24/2013 SERA SAMANIEGO 301.83 BORDERLINE PERSONALITY DISORDER 11/24/2013 ROCHELLE BURRELL APRN 112.1 CANDIDIASIS OF VULVA AND VAGINA 11/24/2013 ROCHELLE BURRELL APRN 296.80 BIPOLAR DISORDER UNSPECIFIED 11/24/2013 ROCHELLE BURRELL APRN 301.83 BORDERLINE PERSONALITY DISORDER 11/24/2013 SERA SAMANIEGO 112.1 CANDIDIASIS OF VULVA AND VAGINA 11/24/2013 SERA SAMANIEGO 296.80 BIPOLAR DISORDER UNSPECIFIED 11/24/2013 SERA SAMANIEGO 301.83 BORDERLINE PERSONALITY DISORDER 11/24/2013 ROCHELLE BURRELL APRN 112.1 CANDIDIASIS OF VULVA AND VAGINA 11/24/2013 ROCHELLE BURRELL APRN 296.80 BIPOLAR DISORDER UNSPECIFIED 11/24/2013 ROCHELLE BURRELL APRN 301.83 BORDERLINE PERSONALITY DISORDER 03/19/2014 ROCHELLE BURRELL APRN 339.82 HEADACHE ASSOCIATED WITH SEXUAL ACTIVITY 03/19/2014 TERA RIVER DO 339.82 HEADACHE ASSOCIATED WITH SEXUAL ACTIVITY 03/19/2014 ROCHELLE BURRELL APRN 339.82 HEADACHE ASSOCIATED WITH SEXUAL ACTIVITY 03/19/2014 SERA SAMANIEGO 339.82 HEADACHE ASSOCIATED WITH SEXUAL ACTIVITY 03/19/2014 ROCHELLE BURRELL APRN 339.82 HEADACHE ASSOCIATED WITH SEXUAL ACTIVITY 03/19/2014 SERA SAMANIEGO 339.82 HEADACHE ASSOCIATED WITH SEXUAL ACTIVITY 03/19/2014 ROCHELLE BURRELL APRN 339.82 HEADACHE ASSOCIATED WITH SEXUAL ACTIVITY 03/20/2014 TERA R[place] DO 789.04 ABDOMINAL PAIN LEFT LOWER QUADRANT 03/20/2014 ROCHELLE BURRELL APRN 789.04 ABDOMINAL PAIN LEFT LOWER QUADRANT 03/20/2014 SERA SAMANIEGO 789.04 ABDOMINAL PAIN LEFT LOWER QUADRANT 03/20/2014 ROCHELLE BURRELL APRN 789.04 ABDOMINAL PAIN LEFT LOWER QUADRANT 03/20/2014 SERA SAMANIEGO 789.04 ABDOMINAL PAIN LEFT LOWER QUADRANT 03/20/2014 ROCHELLE BURRELL APRN 789.04 abdominal pain in the left lower belly (LLQ) 03/21/2014 Ot 571.8 03/21/2014 Ot 787.91 03/21/2014 Ot 789.00 03/21/2014 Ot 620.2 03/21/2014 Ot V58.69 03/21/2014 Ot V58.83 03/21/2014 Ot 296.33 03/21/2014 Ot 530.81 03/21/2014 Ot 553.3 03/21/2014 Ot 571.8 03/21/2014 Ot 722.93 03/21/2014 Ot 787.20 03/21/2014 Ot 789.36 03/21/2014 Ot V72.84 03/21/2014 Ot 793.89 03/21/2014 Ot V76.12 03/21/2014 Ot 793.89 03/23/2014 Ot 571.8 03/23/2014 Ot 787.91 03/23/2014 Ot 789.00 03/23/2014 Ot 620.2 03/23/2014 Ot V58.69 03/23/2014 Ot V58.83 03/23/2014 Ot 296.33 03/23/2014 Ot 530.81 03/23/2014 Ot 553.3 03/23/2014 Ot 571.8 03/23/2014 Ot 722.93 03/23/2014 Ot 787.20 03/23/2014 Ot 789.36 03/23/2014 Ot V72.84 03/23/2014 Ot 793.89 03/23/2014 Ot V76.12 03/23/2014 Ot 793.89 03/26/2014 ROCHELLE BURRELL [employer] Ot 339.82 03/26/2014 ROCHELLE BURRELL [employer] Ot V81.5 04/03/2014 TERA R[place] DO 110.1 DERMATOPHYTOSIS OF NAIL 04/03/2014 TER[place] DO 790.6 OTHER ABNORMAL BLOOD CHEMISTRY 04/03/2014 ROCHELLE BURRELL APRN 110.1 DERMATOPHYTOSIS OF NAIL 04/03/2014 ROCHELLE BURRELL APRN 790.6 OTHER ABNORMAL BLOOD CHEMISTRY 04/03/2014 SERA SAMANIEGO 110.1 DERMATOPHYTOSIS OF NAIL 04/03/2014 SERA SAMANIEGO 790.6 OTHER ABNORMAL BLOOD CHEMISTRY 04/03/2014 YAN BURRELL APRNA 110.1 DERMATOPHYTOSIS OF NAIL 04/03/2014 YAN BURRELL APRNA 790.6 OTHER ABNORMAL BLOOD CHEMISTRY 04/03/2014 SERA SAMANIEGO 110.1 DERMATOPHYTOSIS OF NAIL 04/03/2014 SERA SAMANIEGO 790.6 OTHER ABNORMAL BLOOD CHEMISTRY 04/03/2014 YAN BURRELL APRNA 110.1 DERMATOPHYTOSIS OF NAIL 04/03/2014 ROCHELLE BURRELL APRN 790.6 OTHER ABNORMAL BLOOD CHEMISTRY 04/11/2014 Ot 571.8 04/11/2014 Ot 787.91 04/11/2014 Ot 789.00 04/11/2014 Ot 620.2 04/11/2014 Ot V58.69 04/11/2014 Ot V58.83 04/11/2014 Ot 296.33 04/11/2014 Ot 530.81 04/11/2014 Ot 553.3 04/11/2014 Ot 571.8 04/11/2014 Ot 722.93 04/11/2014 Ot 787.20 04/11/2014 Ot 789.36 04/11/2014 Ot V72.84 04/11/2014 Ot 793.89 04/11/2014 Ot V76.12 04/11/2014 Ot 793.89 04/11/2014 ASHANTI ROCHELLE M [employer] Ot 339.82 04/11/2014 ASHANTI ROCHELLE M [employer] AND [employer] Ot V81.5 04/11/2014 ASHANTI ROCHELLE M [employer] AND [employer] Ot 339.82 04/16/2014 YAN BURRELLA M [employer] AND [employer] Ot 339.82 04/16/2014 ASHANTI ROCHELLE M [employer] AND [employer] Ot V81.5 04/17/2014 ASHANTI ROCHELLE M [employer] AND [employer] Ot 339.82 04/20/2014 ASHANTI ROCHELLE M [employer] AND [employer] Ot 339.82 04/20/2014 ASHANTI ROCHELLE M [employer] AND [employer] Ot V81.5 05/01/2014 ASHANTI ROCHELLE M [employer] AND [employer] Ot 339.82 05/02/2014 ASHANTI ROCHELLE M [employer] AND [employer] Ot 110.1 05/02/2014 ASHANTI ROCHELLE M [employer] AND [employer] Ot 530.81 05/02/2014 ASHANTI ROCHELLE M [employer] AND [employer] Ot 789.00 05/02/2014 ASHANTI ROCHELLE M [employer] Ot 790.6 05/29/2014 ASHANTI MENDES, ROCHELLE 786.2 COUGH 05/29/2014 SAMMIE SAMANIEGOA 786.2 COUGH 05/29/2014 ASHANTI [employer], ROCHELLE 786.2 COUGH 05/29/2014 SAMMIE SAMANIEGOA 786.2 COUGH 05/29/2014 ASHANTI [employer], ROCHELLE 786.2 COUGH 06/04/2014 ASHANTI MENDES, ROCHELLE 356.9 UNSPECIFIED IDIOPATHIC PERIPHERAL NEUROPATHY 06/04/2014 ASHANTI TEJADAN, ROCHELLE 724.2 LUMBAGO 06/04/2014 ASHANTI MENDES, ROCHELLE 724.4 THORACIC OR LUMBOSACRAL NEURITIS OR RADICULITIS UNSPECIFIED 06/04/2014 SAMMIE SAMANIEGOA 356.9 UNSPECIFIED IDIOPATHIC PERIPHERAL NEUROPATHY 06/04/2014 SAMMIE SAMANIEGOA 724.2 LUMBAGO 06/04/2014 SAMMIE SAMANIEGOA 724.4 THORACIC OR LUMBOSACRAL NEURITIS OR RADICULITIS UNSPECIFIED 06/04/2014 ASHANTI MENDES, ROCHELLE 356.9 UNSPECIFIED IDIOPATHIC PERIPHERAL NEUROPATHY 06/04/2014 ASHANTI MENDES, ROCHELLE 724.2 LUMBAGO 06/04/2014 ASHANTI MENDES, ROCHELLE 724.4 THORACIC OR LUMBOSACRAL NEURITIS OR RADICULITIS UNSPECIFIED 06/15/2014 Ot 571.8 06/15/2014 Ot 787.91 06/15/2014 Ot 789.00 06/15/2014 Ot 620.2 06/15/2014 Ot V58.69 06/15/2014 Ot V58.83 06/15/2014 Ot 296.33 06/15/2014 Ot 530.81 06/15/2014 Ot 553.3 06/15/2014 Ot 571.8 06/15/2014 Ot 722.93 06/15/2014 Ot 787.20 06/15/2014 Ot 789.36 06/15/2014 Ot V72.84 06/15/2014 Ot 793.89 06/15/2014 Ot V76.12 06/15/2014 Ot 793.89 06/15/2014 ASAHNTI ROCHELLE M [employer] Ot 339.82 06/15/2014 ASHANTI ROCHELLE Angely [employer] Ot V81.5 06/15/2014 ASHANTI ROCHELLE Au [employer] Ot 339.82 06/15/2014 ASHANTI ROCHELLE Angely [employer] Ot 110.1 06/15/2014 ASHANTI ROCHELLE Angely [employer] Ot 530.81 06/15/2014 ASHANTI ROCHELLE Au [employer] Ot 789.00 06/15/2014 ASHANTI ROCHELLE Au [employer] Ot 790.6 06/21/2014 ROCHELLE BURRELL APRN V72.69 OTHER LABORATORY EXAMINATION Procedures Code [place] [address] ROUTINE VENIPUNCTURE 01/06/2012 93899 UA W/ CULTURE IF INDICATED 01/06/2012 07234 HCG QUALITATIVE 01/06/2012 59626 ROUTINE VENIPUNCTURE 03/11/2012 13263 A1C (IN-HOUSE) 03/11/2012 03404 CMP 03/11/2012 4445876 GFR CALC (RESULT ONLY) 03/11/2012 65325 H-PYLORI IGM (RML) 03/13/2012 Brent Monroy 03/14/2012 76031 ROUTINE VENIPUNCTURE 04/01/2012 83079 TSH 04/02/2012 78273 MAMMOGRAM DX, LEFT 04/04/2012 54918 ROUTINE VENIPUNCTURE 05/02/2012 54812 TSH 05/02/2012 11338 SLEEP STUDY 12/14/2012 13964 URINE TEST (IN HOUSE) 03/22/2013 18253 A1C (IN-HOUSE) 03/22/2013 14325 SLEEP STUDY 04/27/2013 24840 US EXAM BREAST(S) 07/05/2013 89692 MAMMOGRAM BOTH BREASTS 07/05/2013 12695 CMP (COMPREHENSIVE METABOLIC PANEL) 07/05/2013 92148 URINE MICROALBUMIN, QUANTITATIVE 07/05/2013 91920 A1C (glycosylated hemoglobin ) 07/05/2013 95442 TSH w/ REFLEX T4 FREE 07/05/2013 77599 HIV-1ANTIBODY 07/05/2013 63564 GLUCOSE FINGER STICK (NON FASTING) IN-HOUSE 10/20/2013 05700 URINALYSIS, DIPSTICK, ( INHOUSE) 11/24/2013 77113 A1C (glycosylated hemoglobin ) 11/24/2013 81907 CMP (COMPREHENSIVE METABOLIC PANEL) 11/24/2013 58586 LIPID PANEL (OUTSIDE LAB) 11/24/2013 18689 URINE MICROALBUMIN, QUANTITATIVE 11/24/2013 42182 FSH (GONADOTROPIN) 11/24/2013 47189 TESTOSTERONE, TOTAL 11/24/2013 31497 INITIAL CONSULT 11/24/2013 64999 A1C (glycosylated hemoglobin ) 01/01/2014 61304 ULTRASOUND, BREAST, RIGHT 01/11/2014 83618 MAMMOGRAM, DIAGNOSTIC, RIGHT BREAST 01/11/2014 65297 US EXAM ABDOM COMPLETE 02/05/[address] HEAD/BRAIN W/O & W/ CONTRAST 03/19/2014 87707 CREATININE, SERUM 03/19/2014 92380 BUN (BLOOD UREA NITROGEN) 03/19/2014 75225 CBC, COMPLETE, W/AUTO DIFF WBC 03/21/2014 48649 CMP (COMPREHENSIVE METABOLIC PANEL) 03/21/2014 20323 INITIAL CONSULT 05/29/2014 79566 MRI LUMBAR SPINE W/O DYE 06/04/2014 27949 NO CHARGE 06/04/2014 99966 CMP (COMPREHENSIVE METABOLIC PANEL) 07/12/2014 26804 A1C (GLYCOSYLATED HEMOGLOBIN ) 07/12/2014 50035 MAGNESIUM, SERUM 07/12/2014 Results There is no data. Encounters ACCT No. Visit Date/Time Discharge Status Pt. Type Provider Facility Loc./Unit Complaint [id number] 09/21/2012 15:27:00 09/21/2012 23:59:59 CLS Outpatient GAUDENCIO STEWART DO [id number] 05/06/2012 11:09:00 05/06/2012 23:59:59 CLS Outpatient [id number] 05/02/2012 10:49:00 05/02/2012 23:59:59 CLS Outpatient GAUDENCIO STEWART DO [id number] 04/01/2012 13:43:00 04/01/2012 23:59:59 CLS Outpatient [id number] 04/01/2012 13:43:00 04/01/2012 23:59:59 CLS Outpatient GAUDENCIO STEWART DO [id number] 03/18/2012 07:53:00 03/18/2012 23:59:59 CLS Outpatient ROSANNEKIRK DUMONTLESLIE [place] Willie [id number] 03/14/2012 16:33:00 03/14/2012 23:59:59 CLS Outpatient [id number] 03/11/2012 09:14:00 03/11/2012 23:59:59 CLS Outpatient GAUDENCIO STEWART DO [id number] 03/11/2012 09:14:00 03/11/2012 23:59:59 CLS Outpatient GAUDENCIO STEWART DO [id number] 02/15/2012 13:30:00 02/15/2012 23:59:59 CLS Outpatient GAUDENCIO STEWART DO [id number] 01/06/2012 15:11:00 01/06/2012 23:59:59 CLS Outpatient GAUDENCIO STEWART DO [id number] 06/15/2014 15:12:00 06/15/2014 23:59:59 CLS Outpatient ROCHELLE BURRELL [employer] [facility] RAD [id number] 04/11/2014 09:24:00 04/11/2014 23:59:59 CLS Outpatient ROCHELLE BURRELL [employer] [facility] RAD [id number] 03/26/2014 08:12:00 03/26/2014 23:59:59 CLS Outpatient ROCHELLE BURRELL [employer] [facility] RAD [id number] 03/23/2014 16:07:00 03/23/2014 23:59:59 CLS Outpatient ROCHELLE BURRELL [employer] [facility] RAD [id number] 03/02/2013 20:03:00 03/03/2013 06:20:00 DIS Outpatient PENELOPE WEINSTEIN [facility] SLEEP [id number] 08/22/2012 03:35:00 08/22/2012 06:04:00 DIS Emergency LOS MERLOS, FRANCY Morocho [facility] ER [id number] 03/21/2014 15:33:00 Document Registration [id number] 03/21/2014 15:33:00 Document Registration [id number] 04/20/2012 07:36:00 Document Registration [id number] 04/06/2012 15:21:00 Document Registration [id number] 03/30/2012 12:17:00 Document Registration [id number] 03/22/2012 10:44:00 Document Registration [id number] 11/24/2011 11:03:00 Document Registration [id number] 04/03/2011 17:03:00 Document Registration [id number] 01/09/2011 17:19:00 Document Registration [id number] 11/27/2010 17:12:00 Document Registration [id number] 07/11/2010 13:32:00 Document Registration [id number] 11/22/2009 09:25:00 Document Registration [id number] 11/08/2009 07:27:00 Document Registration [id number] 02/11/2009 08:46:00 Document Registration [id number] 07/12/2014 15:12:00 07/12/2014 23:59:59 CLS Outpatient ROCHELLE BURRELL APRN [id number] 06/04/2014 15:08:00 06/04/2014 23:59:59 CLS Outpatient SERA SAMANIEGO [id number] 06/04/2014 14:38:00 06/04/2014 23:59:59 CLS Outpatient ROCHELLE BURRELL APRN [id number] 05/29/2014 16:02:00 05/29/2014 23:59:59 CLS Outpatient SERA SAMANIEGO [id number] 05/29/2014 13:44:00 05/29/2014 23:59:59 CLS Outpatient ROCHELLE BURRELL APRN [id number] 04/17/2014 13:38:00 04/17/2014 23:59:59 [place] [id number] 03/19/2014 13:55:00 03/19/2014 23:59:59 CLS Outpatient ROCHELLE BURRELL APRN [id number] 02/05/2014 13:51:00 02/05/2014 23:59:59 CLS Outpatient ROCHELLE BURRELL APRN [id number] 01/01/2014 16:54:00 01/01/2014 23:59:59 [place] [id number] 11/24/2013 14:17:00 11/24/2013 23:59:59 CLS Outpatient BRENT HYLTON [id number] 11/24/2013 13:02:00 11/24/2013 23:59:59 [place] [id number] 10/20/2013 11:15:00 10/20/2013 23:59:59 CLS Outpatient ROCHELLE BURRELL APRN [id number] 10/20/2013 11:15:00 10/20/2013 23:59:59 CLS Outpatient ROCHELLE BURRELL APRN [id number] 09/11/2013 14:19:00 09/11/2013 23:59:59 CLS Outpatient ROCHELLE BURRELL APRN [id number] 07/05/2013 14:16:00 07/05/2013 23:59:59 CLS Outpatient ROCHELLE BURRELL APRN [id number] 07/05/2013 14:16:00 07/05/2013 23:59:59 CLS Outpatient ROCHELLE BURRELL APRN [id number] 04/27/2013 14:50:00 04/27/2013 23:59:59 [place] [id number] 03/22/2013 14:41:00 03/22/2013 23:59:59 CLS Outpatient ROCHELLE BURRELL APRN [id number] 12/07/2012 14:09:00 12/07/2012 23:59:59 CLS Outpatient PENELOPE WEINSTEIN [id number] 07/20/2012 13:53:00 07/20/2012 23:59:59 CLS Outpatient TRENT GABI MENDESA [id number] 06/15/2014 15:12:54 ACT Document Registration
[2017-07-18] MEDS ORDERED: NS IV 1000 ML 1,000 ML IV SCH ×2 (16:00→16:45)
--- NOTE | 2017-07-18 16:07 | ED General ---
General Chief Complaint: Glucose Problems Stated Complaint: BLOOD SUGAR HIGH Source of Information: Patient Exam Limitations: No Limitations History of Present Illness Date Seen by Provider: July 18, 2017 Time Seen by Provider: 16:00 Initial Comments To ER with reports of high blood sugar. She states that she wasn't checking her blood sugars until she started feeling bad. She checked it at home and found it to be over 600. She is known to be diabetic supposed to be on Lantus and Humalog. She is in the process of moving and also reports that is very expensive. Regardless of the reason, she has not been taking her insulin. She did find some Lantus at home so she took 80units at once 30 minutes prior to arrival. Typically, when she was taking it as directed she was taking 60 units daily in divided doses. States she has a primary care provider in her home town of [facility]. She did consider switching to [facility] in [place]. Timing/Duration: 1-2 Days Severity: Moderate Allergies and Home Medications Allergies Coded Allergies: Penicillins (Unverified Allergy, Intermediate, EDEMA, HIVES, 07/18/17) quetiapine fumarate (Verified Allergy, Mild, 08/22/12) aripiprazole (Unverified Allergy, Unknown, 03/26/14) benztropine (Unverified Allergy, Unknown, 03/26/14) cephalexin (Verified Allergy, Unknown, 04/07/05) clindamycin (Verified Allergy, Unknown, 04/07/05) doxycycline (Verified Allergy, Unknown, 04/07/05) furosemide (Verified Allergy, Unknown, 04/07/05) haloperidol (Unverified Allergy, Unknown, 03/26/14) isosorbide (Unverified Allergy, Unknown, 03/26/14) levofloxacin (Unverified Allergy, Unknown, 03/26/14) methylphenidate (Unverified Allergy, Unknown, 03/26/14) nitrofurantoin (Unverified Allergy, Unknown, 03/26/14) penicillin G (Verified Allergy, Unknown, 04/07/05) Uncoded Allergies: CEFALEXIN (Allergy, Mild, EDEMA, 09/17/08) TERAMYCIN (Allergy, Mild, EDEMA, 09/17/08) IMIT (Allergy, Unknown, 03/26/14) Home Medications Alprazolam 0.25 Mg Tablet, 0.25 MG PO DAILY PRN, (Reported) Duloxetine Hcl 30 Mg Capsule., 1 EACH PO DAILY Prescribed by: FRANCY MADISON on 08/22/12 0548 Spironolactone 25 Mg Tablet, 25 MG PO BID, (Reported) Valsartan 40 Mg Tablet, 40 MG PO DAILY, (Reported) Patient Home Medication List Home Medication List Reviewed: Yes Review of Systems Constitutional: see HPI EENTM: see HPI Respiratory: no symptoms reported Cardiovascular: no symptoms reported Genitourinary: no symptoms reported Musculoskeletal: no symptoms reported Skin: no symptoms reported Psychiatric/Neurological: No Symptoms Reported Hematologic/Lymphatic: No Symptoms Reported Past Xjjhxsy-[id number]-Gseakf Hx Immunizations Up To Date Date of Pneumonia Vaccine: Mar 29, 2009 Seasonal Allergies Seasonal Allergies: Yes Past Medical History Asthma Reproductive Disorders: No Physical Exam Vital Signs Vital Signs - First Documented 07/18/17 15:54 Temp 98.3 Pulse 78 Resp 18 B/P (MAP) 145/83 (103) Pulse Ox 99 Capillary Refill : General Appearance: No Apparent Distress, WD/WN Eyes: Bilateral Eye Normal Inspection, Bilateral Eye PERRL, Bilateral Eye EOMI HEENT: PERRL/EOMI, TMs Normal Respiratory: No Accessory Muscle Use, No Respiratory Distress Cardiovascular: Regular Rate, Rhythm, Normal Peripheral Pulses Gastrointestinal: Normal Bowel Sounds, Non Tender, Soft Extremity: Normal Capillary Refill, Normal Inspection Neurologic/Psychiatric: Alert, Oriented x3, No Motor/Sensory Deficits Skin: Normal Color, Warm/Dry Progress/Results/Core Measures Suspected Sepsis SIRS Temperature: Pulse: Respiratory Rate: Laboratory Tests 07/18/17 16:00: White Blood Count 7.1 Blood Pressure / Mean: Laboratory Tests 07/18/17 16:00: Creatinine 1.53H, Platelet Count 235, Total Bilirubin 0.4 07/18/17 18:15: Creatinine 1.14 Results/Orders Lab Results Laboratory Tests Test 07/18/17 16:00 07/18/17 16:08 07/18/17 18:15 Range/Units White Blood Count 7.1 4.3-11.0 10^3/uL Red Blood Count 4.12 L 4.35-5.85 10^6/uL Hemoglobin 12.4 11.5-16.0 G/DL Hematocrit 36 35-52 % Mean Corpuscular Volume 87 80-99 FL Mean Corpuscular Hemoglobin 30 25-34 PG Mean Corpuscular Hemoglobin Concent 35 32-36 G/DL Red Cell Distribution Width 12.6 10.0-14.5 % Platelet Count 235 130-400 10^3/uL Mean Platelet Volume 10.5 H 7.4-10.4 FL Neutrophils (%) (Auto) 51 42-75 % Lymphocytes (%) (Auto) 41 12-44 % Monocytes (%) (Auto) 6 0-12 % Eosinophils (%) (Auto) 1 0-10 % Basophils (%) (Auto) 1 0-10 % Neutrophils # (Auto) 3.6 1.8-7.8 X 10^3 Lymphocytes # (Auto) 2.9 1.0-4.0 X 10^3 Monocytes # (Auto) 0.4 0.0-1.0 X 10^3 Eosinophils # (Auto) 0.1 0.0-0.3 10^3/uL Basophils # (Auto) 0.1 0.0-0.1 10^3/uL Urine Color YELLOW Urine Clarity CLEAR Urine pH 6.5 5-9 Urine Specific [place] 1.010 L 1.016-1.022 Urine Protein 1+ H NEGATIVE Urine Glucose (UA) 4+ H NEGATIVE Urine Ketones NEGATIVE NEGATIVE Urine Nitrite POSITIVE H NEGATIVE Urine Bilirubin NEGATIVE NEGATIVE Urine Urobilinogen NORMAL NORMAL MG/DL Urine Leukocyte Esterase NEGATIVE NEGATIVE Urine RBC (Auto) NEGATIVE NEGATIVE Urine RBC NONE /HPF Urine WBC 0-2 /HPF Urine Squamous Epithelial Cells 0-2 /HPF Urine Crystals NONE /LPF Urine Bacteria TRACE /HPF Urine Casts NONE /LPF Urine Mucus NEGATIVE /LPF Urine Culture Indicated YES Sodium Level 129 L 133 L 135-145 MMOL/L Potassium Level 4.6 4.0 3.6-5.0 MMOL/L Chloride Level 93 L 99 98-107 MMOL/L Carbon Dioxide Level 20 L 20 L 21-32 MMOL/L Anion Gap 16 H 14 5-14 MMOL/L Blood Urea Nitrogen 15 13 7-18 MG/DL Creatinine 1.53 H 1.14 0.60-1.30 MG/DL Estimat Glomerular Filtration Rate 36 50 BUN/Creatinine Ratio 10 11 Glucose Level 666 *H 507 *H 70-105 MG/DL Calcium Level 9.8 8.8 8.5-10.1 MG/DL Total Bilirubin 0.4 0.1-1.0 MG/DL Aspartate Amino Transf (AST/SGOT) 32 5-34 U/L Alanine Aminotransferase (ALT/SGPT) 55 0-55 U/L Alkaline Phosphatase 68 40-136 U/L Total Protein 7.7 6.4-8.2 GM/DL Albumin 4.6 H 3.2-4.5 GM/DL Glucometer 539 *H 70-110 MG/DL My Orders Orders - FRANCINE HOOD SCRAP STRIPPER HAND Cbc With Automated Diff (07/18/17 15:55) Comprehensive Metabolic Panel (07/18/17 15:55) Ua Culture If Indicated (07/18/17 15:55) Iv Heplock-Insert (Order) (07/18/17 15:55) Ns Iv 1000 Ml (Sodium Chloride 0.9%) (07/18/17 16:00) Accucheck Stat ONCE (07/18/17 15:59) Insulin (Regular) Human (Humulin R (Per (07/18/17 16:15) Urine Culture (07/18/17 16:00) Ns Iv 1000 Ml (Sodium Chloride 0.9%) (07/18/17 16:45) Basic Metabolic Panel (07/18/17 17:51) Insulin (Regular) Human (Humulin R (Per (07/18/17 18:45) Accucheck Stat ONCE (07/18/17 19:20) Insulin (Regular) Human (Humulin R (Per (07/18/17 19:30) Medications Given in ED Current Medications Medications Dose Ordered Sig/Lizzie Route Start Time Stop Time Status Last Admin Dose Admin Insulin Human Regular 8 unit ONCE ONCE IV 07/18/17 16:15 07/18/17 16:16 DC 07/18/17 16:24 8 UNIT Insulin Human Regular 10 unit ONCE ONCE IV 07/18/17 18:45 07/18/17 18:46 DC 07/18/17 18:49 10 UNIT Vital Signs/I&O 07/18/17 15:54 Temp 98.3 Pulse 78 Resp 18 B/P (MAP) 145/83 (103) Pulse Ox 99 Capillary Refill : Departure Communication (Admissions) 1924-blood sugar down to 402. Patient states that she is feeling fine and would like to go on home. I will send a prescription for Humalog to [facility]. She states she'll get this tomorrow. She did take 80 units of Lantus before coming here so will help reduce the sugar overnight. She states that her normal dose of Humalog is 20 units before meals. Impression Primary Impression: Mild diabetic Ketoacidosis Additional Impression: Hyperglycemia Disposition: 01 HOME, SELF-CARE Condition: Stable Departure-Patient Inst. Decision time for Depature: 19:25 Referrals: NO,LOCAL PHYSICIAN (PCP) Primary Care Physician Patient Instructions: DIABETES Add. Discharge Instructions: 1. Return to ER for any concerns 2. Fill the prescription of Humalog sent to [facility] first thing in the morning. All discharge instructions reviewed with patient and/or family. Voiced understanding. Scripts Insulin Lispro (Humalog) 100 Unit/1 Ml Vial 20 UNIT SQ AC, #1 VIAL May use insulin pen if patient would prefer that rather than vial. Same dosing instructions Prov: FRANCINE HOOD APRN 07/18/17 FRANCINE HOOD APRN July 18, 2017 16:07
[2017-07-18 16:11] LABS: BASOPHILS # (AUTO) 0.1 10^3/uL (0.0-0.1); BASOPHILS % (AUTO) 1 % (0-10); BILIRUBIN,URINE NEGATIVE (NEGATIVE); CLARITY,URINE CLEAR; COLOR,URINE YELLOW; EOSINOPHILS # (AUTO) 0.1 10^3/uL (0.0-0.3); EOSINOPHILS % (AUTO) 1 % (0-10); GLUCOSE, URINE (UA) 4+ (NEGATIVE); HEMATOCRIT 36 % (35-52); HEMOGLOBIN 12.4 G/DL (11.5-16.0); KETONES,URINE NEGATIVE (NEGATIVE); LEUKOCYTE ESTERASE ,URINE NEGATIVE (NEGATIVE); LYMPHOCYTES # (AUTO) 2.9 X 10^3 (1.0-4.0); LYMPHOCYTES % (AUTO) 41 % (12-44); MEAN CORPUSCULAR HEMOGLOBIN 30 PG (25-34); MEAN CORPUSCULAR HGB CONC 35 G/DL (32-36); MEAN CORPUSCULAR VOLUME 87 FL (80-99); MEAN PLATELET VOLUME 10.5 FL (7.4-10.4); MONOCYTES # (AUTO) 0.4 X 10^3 (0.0-1.0); MONOCYTES % (AUTO) 6 % (0-12); NEUTROPHILS # (AUTO) 3.6 X 10^3 (1.8-7.8); NEUTROPHILS % (AUTO) 51 % (42-75); NITRITE,URINE POSITIVE (NEGATIVE); PH,URINE 6.5 (5-9); PLATELET COUNT 235 10^3/uL (130-400); PROTEIN,URINE 1+ (NEGATIVE); RED BLOOD COUNT 4.12 10^6/uL (4.35-5.85); RED CELL DISTRIBUTION WIDTH 12.6 % (10.0-14.5); UROBILINOGEN,URINE NORMAL (NORMAL); WHITE BLOOD COUNT 7.1 10^3/uL (4.3-11.0)
[2017-07-18] MEDS ORDERED: inSUlin (REGULAR) HUMAN 1 UNIT/0.01 ML (CHARGE PER UNIT) IV ONE ×3 (16:15→19:30)
[2017-07-18 16:21] LABS: BACTERIA,URINE TRACE /HPF; SQUAMOUS EPITHELIAL CELL,UR 0-2 /HPF; WBC,URINE 0-2 /HPF
[2017-07-18 16:29] LABS: ALBUMIN 4.6 GM/DL (3.2-4.5); BILIRUBIN,TOTAL 0.4 MG/DL (0.1-1.0); CALCIUM 9.8 MG/DL (8.5-10.1); CREATININE SERUM 1.53 MG/DL (0.60-1.30); POTASSIUM 4.6 MMOL/L (3.6-5.0); TOTAL PROTEIN 7.7 GM/DL (6.4-8.2)
[2017-07-18 18:38] LABS: CALCIUM 8.8 MG/DL (8.5-10.1); CREATININE SERUM 1.14 MG/DL (0.60-1.30)
[2017-07-18] MEDS ORDERED: INSU100V SQ ×2 (19:28→19:37)
[2017-07-18 19:58] VITALS: BP 127/92
== END 2017-07-18 19:58 | disposition home or self-care (01) ==
LOC: EDUNIT# 15:47 → ER 15:50
DX: E11.10 Type 2 diabetes mellitus with ketoacidosis without coma (principal); E11.65 Type 2 diabetes mellitus with hyperglycemia; J45.909 Unspecified asthma, uncomplicated; Z79.4 Long term (current) use of insulin; Z88.0 Allergy status to penicillin; Z88.1 Allergy status to other antibiotic agents; Z88.8 Allergy status to other drugs, medicaments and biological substances
CPT/HCPCS: 36415; 80048; 80053; 81000; 82962; 85025; 87088; 96361; 96374; 96376; 99282

== ENCOUNTER 2017-10-11 14:01 | Emergency (ER) | payer OTHER, MEDICARE ==
[~2017-10-11] VITALS: Ht 182.9 cm; Wt 124.7 kg
[~2017-10-11 14:01] MED LIST changes: +INSU100V SQ
[2017-10-11] MEDS ORDERED: ONDANSETRON 4 MG (ZOFRAN) ORAL DISSOLVE TAB PO ONE (14:45)
--- NOTE | 2017-10-11 14:49 | ED GI ---
General Chief Complaint: Chest Pain Stated Complaint: MULTIPLE COMPLAINTS Source of Information: Patient Exam Limitations: No Limitations History of Present Illness Date Seen by Provider: Oct 11, 2017 Time Seen by Provider: 14:39 Initial Comments Patient presents to ER by private conveyance with a history of multiple complaints including progressively worsening pressure and tension on the right side of her head which is her usual history for her headache as well as some right lower quadrant abdominal discomfort that she has associated with a bladder infection in the past. She's not having dysuria, hesitancy, hematuria. She is in a sexual monogamous relationship and declines STD testing. She's having no discharge or itching. She's had no fevers or vomiting but she is feeling nauseated today. She had one bout of diarrhea or loose stools yesterday. She says when she was on metformin made her have chronic loose stools and so she stopped that medicine. Weeks ago that is slowly been returning to normal. She is on insulin for her diabetes and she says her A1c is been improving from 11 down to 10 last month. She did use a miter Profen yesterday and felt that that helped a lot with her headache. She has not use any Tylenol. She's declining anything for pain right now. She has had her gallbladder out and she does have a history of acid reflux with a recent EGD and which they said she had several partial ulcers and she completed a course of Carafate and is still on omeprazole. She is not feeling any acid reflux right now. When asked about the chest pain the patient says she's having a little discomfort on the left side of her chest but she's had the same chest discomfort for many years and his been going on for several days now and is very mild non-concerning. She has no productive cough, shortness of breath, history of asthma or COPD or coronary artery disease. She does not wish to work this up today. Allergies and Home Medications Allergies Coded Allergies: Penicillins (Unverified Allergy, Intermediate, EDEMA, HIVES, 07/18/17) quetiapine fumarate (Verified Allergy, Mild, 08/22/12) aripiprazole (Unverified Allergy, Unknown, 03/26/14) benztropine (Unverified Allergy, Unknown, 03/26/14) cephalexin (Verified Allergy, Unknown, 04/07/05) clindamycin (Verified Allergy, Unknown, 04/07/05) doxycycline (Verified Allergy, Unknown, 04/07/05) furosemide (Verified Allergy, Unknown, 04/07/05) haloperidol (Unverified Allergy, Unknown, 03/26/14) isosorbide (Unverified Allergy, Unknown, 03/26/14) levofloxacin (Unverified Allergy, Unknown, 03/26/14) methylphenidate (Unverified Allergy, Unknown, 03/26/14) nitrofurantoin (Unverified Allergy, Unknown, 03/26/14) penicillin G (Verified Allergy, Unknown, 04/07/05) Uncoded Allergies: CEFALEXIN (Allergy, Mild, EDEMA, 09/17/08) TERAMYCIN (Allergy, Mild, EDEMA, 09/17/08) IMIT (Allergy, Unknown, 03/26/14) Home Medications Alprazolam 0.25 Mg Tablet, 0.25 MG PO DAILY PRN, (Reported) Duloxetine Hcl 30 Mg Capsule.dr, 1 EACH PO DAILY Prescribed by: FRANCY MADISON on 08/22/12 0548 Insulin Lispro 100 Unit/1 Ml Vial, 20 UNIT SQ AC May use insulin pen if patient would prefer that rather than vial. Same dosing instructions. Please dispense 90 day supply Prescribed by: FRANCINE HOOD on 07/18/171936 Spironolactone 25 Mg Tablet, 25 MG PO BID, (Reported) Valsartan 40 Mg Tablet, 40 MG PO DAILY, (Reported) Patient Home Medication List Home Medication List Reviewed: Yes Review of Systems Constitutional: No chills, No diaphoresis EENTM: No Blurred Vision, No Double Vision Respiratory: Denies Cough, Denies Shortness of Air Cardiovascular: Denies Chest Pain, Denies Lightheadedness Gastrointestinal: See HPI; Denies Abdomen Distended; Abdominal Pain (RLQ) Genitourinary: Denies Burning, Denies Discharge Musculoskeletal: No back pain, No joint pain Skin: No pruritus, No rash Psychiatric/Neurological: See HPI, Headache; Denies Numbness, Denies Paresthesia Past [id number]-[id number]-[id number] Hx Patient Social History Alcohol Use: Occasionally Uses Recreational Drug Use: No Smoking Status: Never a Smoker Recent Foreign Travel: No Contact w/Someone Who Travel: No Recent Hopitalizations: Yes Immunizations Up To Date Date of Pneumonia Vaccine: Mar 29, 2009 Seasonal Allergies Seasonal Allergies: Yes Past Medical History Surgeries: Yes (tonsillectomy, rectal/vaginal fistula repair, gall bladder removal) Respiratory: Yes (ASTHMA) Asthma Cardiac: No Neurological: No Reproductive Disorders: No Gastrointestinal: Yes (HIATAL HERNIA REPAIR) Musculoskeletal: Yes (ARTHRITIS) Endocrine: Yes Psychosocial: Yes Blood Disorders: No Physical Exam Vital Signs Vital Signs - First Documented 10/11/17 14:30 Temp 98.3 Pulse 85 Resp 20 B/P (MAP) 147/79 (101) Pulse Ox 97 O2 Delivery Room Air Capillary Refill : Less Than 3 Seconds Height/Weight/BMI Height: 6'1.00" Weight: 273lbs. 6.0oz. 124.248525uh; BMI Method:Stated General Appearance: WD/WN, no apparent distress HEENT: PERRL/EOMI, normal ENT inspection, TMs normal, pharynx normal Neck: non-tender, full range of motion, supple, normal inspection Respiratory: lungs clear, normal breath sounds, no respiratory distress, no accessory muscle use Cardiovascular: normal peripheral pulses, regular rate, rhythm, other (left chest under the midclavicular service line coordinator to direct palpation re-creates her discomfort.) Peripheral Pulses: 2+ Dorsalis Pedis (R), 2+ Left Dors-Pedis (L) Gastrointestinal: normal bowel sounds, soft, tenderness (mild right mid side not over McBurney's point and without rebound, Rovsing, so as her other mesenteric signs.) Neurologic/Psychiatric: alert, normal mood/affect, oriented x 3 Skin: normal color, warm/dry Progress/Results/Core Measures Results/Orders Lab Results Laboratory Tests Test 10/11/17 14:47 10/11/17 14:59 Range/Units Urine Color YELLOW Urine Clarity CLEAR Urine pH 5 5-9 Urine Specific [place] 1.025 H 1.016-1.022 Urine Protein 2+ H NEGATIVE Urine Glucose (UA) 3+ H NEGATIVE Urine Ketones 1+ H NEGATIVE Urine Nitrite NEGATIVE NEGATIVE Urine Bilirubin NEGATIVE NEGATIVE Urine Urobilinogen NORMAL NORMAL MG/DL Urine Leukocyte Esterase 1+ H NEGATIVE Urine RBC (Auto) NEGATIVE NEGATIVE Urine RBC NONE /HPF Urine WBC RARE /HPF Urine Squamous Epithelial Cells 2-5 /HPF Urine Crystals NONE /LPF Urine Bacteria FEW H /HPF Urine Casts NONE /LPF Urine Mucus NEGATIVE /LPF Urine Culture Indicated NO White Blood Count 7.5 4.3-11.0 10^3/uL Red Blood Count 4.51 4.35-5.85 10^6/uL Hemoglobin 13.6 11.5-16.0 G/DL Hematocrit 41 35-52 % Mean Corpuscular Volume 91 80-99 FL Mean Corpuscular Hemoglobin 30 25-34 PG Mean Corpuscular Hemoglobin Concent 33 32-36 G/DL Red Cell Distribution Width 13.1 10.0-14.5 % Platelet Count 257 130-400 10^3/uL Mean Platelet Volume 10.6 H 7.4-10.4 FL Neutrophils (%) (Auto) 56 42-75 % Lymphocytes (%) (Auto) 31 12-44 % Monocytes (%) (Auto) 7 0-12 % Eosinophils (%) (Auto) 3 0-10 % Basophils (%) (Auto) 2 0-10 % Neutrophils # (Auto) 4.2 1.8-7.8 X 10^3 Lymphocytes # (Auto) 2.3 1.0-4.0 X 10^3 Monocytes # (Auto) 0.5 0.0-1.0 X 10^3 Eosinophils # (Auto) 0.2 0.0-0.3 10^3/uL Basophils # (Auto) 0.2 H 0.0-0.1 10^3/uL Sodium Level 137 135-145 MMOL/L Potassium Level 4.3 3.6-5.0 MMOL/L Chloride Level 101 98-107 MMOL/L Carbon Dioxide Level 26 21-32 MMOL/L Anion Gap 10 5-14 MMOL/L Blood Urea Nitrogen 19 H 7-18 MG/DL Creatinine 0.97 0.60-1.30 MG/DL Estimat Glomerular Filtration Rate 60 BUN/Creatinine Ratio 20 Glucose Level 302 H 70-105 MG/DL Calcium Level 10.0 8.5-10.1 MG/DL Total Bilirubin 0.3 0.1-1.0 MG/DL Aspartate Amino Transf (AST/SGOT) 35 H 5-34 U/L Alanine Aminotransferase (ALT/SGPT) 54 0-55 U/L Alkaline Phosphatase 61 40-136 U/L Total Protein 7.8 6.4-8.2 GM/DL Albumin 4.4 3.2-4.5 GM/DL Lipase 18 8-78 U/L My Orders Orders - YEIMI,LALO J Cbc With Automated Diff (10/11/17 14:43) Comprehensive Metabolic Panel (10/11/17 14:43) Lipase (10/11/17 14:43) Ua Culture If Indicated (10/11/17 14:43) Ondansetron Oral Dissolve Tab (Zofran (10/11/17 14:45) Medications Given in ED Current Medications Medications Dose Ordered Sig/Lizzie Route Start Time Stop Time Status Last Admin Dose Admin Ondansetron HCl 4 mg ONCE ONCE PO 10/11/17 14:45 10/11/17 14:46 DC 10/11/17 15:34 4 MG Vital Signs/I&O 10/11/17 10/11/17 14:30 14:30 Temp 98.3 Pulse 85 Resp 20 B/P (MAP) 147/79 (101) Pulse Ox 97 O2 Delivery Room Air Progress Progress Note : Time: 14:49 Progress Note We have discussed workup and she has consented to do laboratory and urinalysis. She is not wanting anything for pain. Zofran 4 mg ODT for nausea. No imaging indicated right now for a nonsurgical nonacute abdomen. Patient was offered a workup of her palpation reproducible chest pain as well and she has declined. She was offered Zofran to go home with and she has declined. Departure Impression Primary Impression: Otitis media with effusion Qualified Codes: H65.91 - Unspecified nonsuppurative otitis media, right ear Additional Impressions: Headache Qualified Codes: G44.209 - Tension-type headache, unspecified, not intractable Chest wall discomfort History of diabetes mellitus Acute hyperglycemia Disposition: 01 HOME, SELF-CARE Condition: Improved Departure-Patient Inst. Decision time for Depature: 16:02 Referrals: NO,LOCAL PHYSICIAN (PCP) Primary Care Physician Patient Instructions: Chest Pain That Is Not Caused by the Heart (DC) Add. Discharge Instructions: Use the Motrin 800 mg every 8 hours for your head and chest wall pain. If you start to have worsening chest pain, shortness of breath, palpitations or other worrisome symptoms return to the ER. If your symptoms are not improving over the next 2 days with your headache then follow up with your primary care provider this week. bottle house cleaners supervisor the Flonase and apply it to both nostrils twice a day for the next 1-2 weeks to help with your ear effusion and headache. You can also use Tylenol 1000 g every 8 hours. All discharge instructions reviewed with patient and/or family. Voiced understanding. Copy Copies To 1: GAUDENCIO STEWART TITUS J Oct 11, 2017 14:49
[2017-10-11 14:53] LABS: BILIRUBIN,URINE NEGATIVE (NEGATIVE); CLARITY,URINE CLEAR; COLOR,URINE YELLOW; GLUCOSE, URINE (UA) 3+ (NEGATIVE); KETONES,URINE 1+ (NEGATIVE); LEUKOCYTE ESTERASE ,URINE 1+ (NEGATIVE); NITRITE,URINE NEGATIVE (NEGATIVE); PH,URINE 5 (5-9); PROTEIN,URINE 2+ (NEGATIVE); UROBILINOGEN,URINE NORMAL (NORMAL)
[2017-10-11 15:12] LABS: BACTERIA,URINE FEW /HPF; WBC,URINE RARE /HPF
[2017-10-11 15:15] LABS: BASOPHILS # (AUTO) 0.2 10^3/uL (0.0-0.1); BASOPHILS % (AUTO) 2 % (0-10); EOSINOPHILS # (AUTO) 0.2 10^3/uL (0.0-0.3); EOSINOPHILS % (AUTO) 3 % (0-10); HEMATOCRIT 41 % (35-52); HEMOGLOBIN 13.6 G/DL (11.5-16.0); LYMPHOCYTES # (AUTO) 2.3 X 10^3 (1.0-4.0); LYMPHOCYTES % (AUTO) 31 % (12-44); MEAN CORPUSCULAR HEMOGLOBIN 30 PG (25-34); MEAN CORPUSCULAR HGB CONC 33 G/DL (32-36); MEAN CORPUSCULAR VOLUME 91 FL (80-99); MEAN PLATELET VOLUME 10.6 FL (7.4-10.4); MONOCYTES # (AUTO) 0.5 X 10^3 (0.0-1.0); MONOCYTES % (AUTO) 7 % (0-12); NEUTROPHILS # (AUTO) 4.2 X 10^3 (1.8-7.8); NEUTROPHILS % (AUTO) 56 % (42-75); PLATELET COUNT 257 10^3/uL (130-400); RED BLOOD COUNT 4.51 10^6/uL (4.35-5.85); RED CELL DISTRIBUTION WIDTH 13.1 % (10.0-14.5); WHITE BLOOD COUNT 7.5 10^3/uL (4.3-11.0)
[2017-10-11 15:34] LABS: ALBUMIN 4.4 GM/DL (3.2-4.5); BILIRUBIN,TOTAL 0.3 MG/DL (0.1-1.0); CREATININE SERUM 0.97 MG/DL (0.60-1.30); POTASSIUM 4.3 MMOL/L (3.6-5.0); TOTAL PROTEIN 7.8 GM/DL (6.4-8.2)
[2017-10-11 16:30] VITALS: BP 135/87
--- OUTSIDE RECORDS SUMMARY | 2017-10-11 22:14 | XMS REPORT | Clinical Summary ---
Author Author [facility] Address Unknown Phone Unavailable Care Team Providers Care Energy Derivatives Trader Name Role Phone PP Unavailable Allergies Active [...] 2014 Vaccine (RZV,Shingrix) (1 of 2 - SVH 2 Dose Standard) Results Not on filefrom Last 3 Months
--- OUTSIDE RECORDS SUMMARY | 2017-10-11 22:18 | XMS REPORT | Continuity of Care Document ---
Author Author [facility] Address Unknown Phone Unavailable Allergies Active Description Code Type Severity Reaction Onset Reported/Identified Relationship to Patient Clinical Status Yes cephalexin [id number] Drug Allergy Unknown N/A 04/07/2005 Yes clindamycin [id number] Drug Allergy Unknown N/A 04/07/2005 Yes doxycycline [id number] Drug Allergy Unknown N/A 04/07/2005 Yes furosemide [id number] Drug Allergy Unknown N/A 04/07/2005 Yes penicillin G [id number] Drug Allergy Unknown N/A 04/07/2005 Yes cephalexin [...] 08/30/2008 Yes Inderal Drug Allergy 08/30/2008 Yes CEFALEXIN CEFALEXIN Mild EDEMA 09/17/2008 Yes [...] Allergy N/A N/A 06/29/2012 Yes quetiapine fumarate [id number] Drug Allergy Mild N/A 08/22/2012 Yes aripiprazole [id number] Drug Allergy Unknown N/A 03/26/2014 Yes benztropine [id number] Drug Allergy Unknown N/A 03/26/2014 Yes haloperidol [id number] Drug Allergy Unknown N/A 03/26/2014 Yes IMIT IMIT Unknown N/A 03/26/2014 Yes isosorbide [id number] Drug Allergy Unknown N/A 03/26/2014 Yes levofloxacin [id number] Drug Allergy Unknown N/A 03/26/2014 Yes methylphenidate [id number] Drug Allergy Unknown N/A 03/26/2014 Yes nitrofurantoin [id number] Drug Allergy Unknown N/A 03/26/2014 Yes Penicillins [id number] Drug Allergy Moderate EDEMA, HIVES 07/18/2017 Medications There is no data. Problems Date [...] One Or More Phalanges Of Foot 01/31/2008 [facility], LESLIE N 826.0 Closed Fracture Of [...] Sexually Active, Frequently With New Partners 03/23/2008 [facility] D[facility], LESLIE N 054.10 HERPES SIMPLEX GENITAL 03/23/2008 [facility] DDS, LESLIE N V69.2 Sexually Active, Frequently [...] Syndrome 08/30/2008 STEWART DO, GAUDENCIO K V72.31 Economic Analysis Director Exam, Routine 08/30/2008 STEWART DO, GAUDENCIO K V72.31 Economic Analysis Director Exam, Routine 08/30/2008 STEWART DO, GAUDENCIO K V72.31 Economic Analysis Director Exam, Routine 08/30/2008 V72.31 Economic Analysis Director Exam, Routine 08/30/2008 MUOGHALU DDS, LESLIE N V72.31 Economic Analysis Director Exam, Routine 08/30/2008 V72.31 Economic Analysis Director Exam, Routine 08/30/2008 STEWART DO, GAUDENCIO K V72.31 Economic Analysis Director Exam, Routine 08/30/2008 STEWART DO, GAUDENCIO K V72.31 Economic Analysis Director Exam, Routine 08/30/2008 STEWART DO, GAUDENCIO K V72.31 Economic Analysis Director Exam, Routine 08/30/2008 V72.31 Economic Analysis Director Exam, Routine 08/30/2008 STEWART DO, GAUDENCIO K V72.31 Economic Analysis Director Exam, Routine 11/08/2008 STEWART DO, GAUDENCIO K [...] Meniscus Of Knee Current 01/24/2009 STEWART DO GAUDECNIO K 466.0 Acute Bronchitis 01/24/2009 STEWART DO [...] K 356.9 POLYNEUROPATHY 04/04/2009 356.9 POLYNEUROPATHY 04/04/2009 [facility] D[facility], LESLIE N 356.9 POLYNEUROPATHY 04/04/2009 356.9 [...] 625.0 Dyspareunia 11/01/2009 V74.5 Std Screen [facility] N 625.0 Dyspareunia 11/01/2009 [facility] D[facility], LESLIE N V74.5 Std Screen 11/01/2009 625.0 Dyspareunia [...] And Gastroenteritis Of Presumed Infectious Origin 11/28/2009 [facility] DDS, LESLIE N 009.1 Colitis Enteritis And [...] ASTHMA UNSPECIFIED 12/25/2009 558.9 Gastroenteritis Noninfectious 12/25/2009 [facility] DDS, LESLIE N 493.90 ASTHMA UNSPECIFIED 12/25/2009 [facility] DDS, LESLIE N 558.9 Gastroenteritis Noninfectious 12/25/2009 [...] 461.9 Acute Sinusitis Unspecified 07/11/2010 STEWART DO, GAUDECNIO K 461.9 Acute Sinusitis Unspecified 07/11/2010 461.9 [...] K 309.81 AN PTSD 10/23/2010 STEWART DO GUADENCIO K 300.15 DS DISSOCIATIVE DIS NOS 10/23/2010 [...] ROSANNEOGHALU JULIASINDIRARA N 709.9 Skin Lesions 02/25/2011 [facility] DDS, LESLIE N 724.2 BACK PAIN, LOWER [...] Degeneration Of Intervertebral Disc Site Unspecified 03/10/2011 [facility], LESLIE N 722.6 Degeneration Of Intervertebral Disc Site Unspecified 03/10/2011 722.6 Degeneration Of Intervertebral Disc Site Unspecified 03/10/2011 STEWART DO, GAUDENCIO K 722.6 Degeneration Of Intervertebral Disc Site Unspecified 03/10/2011 STWEART DO, GAUDENCIO K 722.6 Degeneration Of Intervertebral [...] Sexual Behavior 07/03/2011 STEWART GAUDENCIO ISBELL V72.31 Economic Analysis Director Exam, Routine 07/03/2011 STEWART AGUDENCIO ISBELL V74.5 Std Screen 07/03/2011 STEWART GAUDENCIO ISBELL 616.10 Vaginitis Vulvovaginitis Unspecified 07/03/2011 STEWART GAUDENCIO ISBELL 788.1 Dysuria 07/03/2011 STEWART GAUDENCIO ISBELL V65.45 Std Counseling 07/03/2011 STEWART GAUDENCIO IBSELL V69.2 High-risk Sexual Behavior 07/03/2011 STEWART GAUDENCIO ISBELL V72.31 Economic Analysis Director Exam, Routine 07/03/2011 STEWART GAUDENCIO ISBELL V74.5 Std Screen 07/03/2011 STEWART GAUDENCIO ISBELL 616.10 Vaginitis Vulvovaginitis Unspecified 07/03/2011 STEWART GAUDENCIO ISBELL 788.1 Dysuria 07/03/2011 STEWART GAUDENCIO ISBELL V65.45 Std Counseling 07/03/2011 STEWART GAUDENCIO ISBELL V69.2 High-risk Sexual Behavior 07/03/2011 STEWART GAUDENCIO ISBELL V72.31 Economic Analysis Director Exam, Routine 07/03/2011 STEWART GAUDENCIO ISBELL V74.5 Std Screen 07/03/2011 616.10 Vaginitis Vulvovaginitis Unspecified 07/03/2011 788.1 Dysuria 07/03/2011 V65.45 Std Counseling 07/03/2011 V69.2 High-risk Sexual Behavior 07/03/2011 V72.31 Economic Analysis Director Exam, Routine 07/03/2011 V74.5 Std Screen 07/03/2011 MUOGHALKeegan DDS, LESLIE N 616.10 Vaginitis Vulvovaginitis Unspecified 07/03/2011 MUOGHALU DDS, LESLIE N 788.1 Dysuria 07/03/2011 MUOGHALU DDS, LESLIE N V65.45 Std Counseling 07/03/2011 MUOGHALU DDS, LESLIE N V69.2 High-risk Sexual Behavior 07/03/2011 MUOGHALU DDS, LESLIE N V72.31 Economic Analysis Director Exam, Routine 07/03/2011 MUOGHALU DDS, LESLIE N V74.5 Std Screen 07/03/2011 616.10 Vaginitis Vulvovaginitis Unspecified 07/03/2011 788.1 Dysuria 07/03/2011 V65.45 Std Counseling 07/03/2011 V69.2 High-risk Sexual Behavior 07/03/2011 V72.31 Economic Analysis Director Exam, Routine 07/03/2011 V74.5 Std Screen 07/03/2011 STEWART COLLEEN ISBELLA K 616.10 Vaginitis Vulvovaginitis Unspecified 07/03/2011 GAUDENCIO STEWART DO K 788.1 Dysuria 07/03/2011 STEWART COLLEEN ISBELLA K V65.45 Std Counseling 07/03/2011 STEWART COLLEEN ISBELLA K V69.2 High-risk Sexual Behavior 07/03/2011 COLLEEN STEWART DOA K V72.31 Economic Analysis Director Exam, Routine 07/03/2011 STEWART COLLEEN ISBELLA K V74.5 Std Screen 07/03/2011 STEWART COLLEEN ISBELLA K 616.10 Vaginitis Vulvovaginitis Unspecified 07/03/2011 COLLEEN STEWART DOA K 788.1 Dysuria 07/03/2011 STEWART COLLEEN ISBELLA K V65.45 Std Counseling 07/03/2011 STEWART COLLEEN ISBELLA K V69.2 High-risk Sexual Behavior 07/03/2011 COLLEEN STEWART DOA K V72.31 Economic Analysis Director Exam, Routine 07/03/2011 STEWART COLLEEN ISBELLA K V74.5 Std Screen 07/03/2011 STEWART DO GAUDENCIO K 616.10 Vaginitis Vulvovaginitis Unspecified 07/03/2011 STEWART DOCOLLEENA K 788.1 Dysuria 07/03/2011 STEWART COLLEEN ISBELLA K V65.45 Std Counseling 07/03/2011 STEWART DOCOLLEENA K V69.2 High-risk Sexual Behavior 07/03/2011 STEWART COLLEEN ISBELLA K V72.31 Economic Analysis Director Exam, Routine 07/03/2011 STEWART COLLEEN ISBELLA K V74.5 Std Screen 07/03/2011 616.10 Vaginitis Vulvovaginitis Unspecified 07/03/2011 788.1 Dysuria 07/03/2011 V65.45 Std Counseling 07/03/2011 V69.2 High-risk Sexual Behavior 07/03/2011 V72.31 Economic Analysis Director Exam, Routine 07/03/2011 V74.5 Std Screen 07/03/2011 GAUDENCIO STEWART DO 616.10 Vaginitis Vulvovaginitis Unspecified 07/03/2011 GAUDENCIO STEWART DO 788.1 Dysuria 07/03/2011 GAUDENCIO STEWART DO V65.45 Std Counseling 07/03/2011 GAUDENCIO STEWART DO K V69.2 High-risk Sexual Behavior 07/03/2011 COLLEEN STEWART DOA K V72.31 Economic Analysis Director Exam, Routine 07/03/2011 GAUDENCIO STEWART DO K [...] 787.3 Flatulence Eructation And Gas Pain [facility]/16/[facility] N 787.3 Flatulence Eructation [...] MUOGHALU DDS, LESLIE N 530.81 GERD 11/20/2011 [facility], [place] N 553.3 DIAPHRAGMATIC HERNIA WITHOUT OBSTRUCTION OR GANGRENE 11/20/2011 [facility] [place] N 787.20 Dysphagia Unspecified 11/20/2011 [facility] [place], [place] N 789.36 Abdominal Or Pelvic [...] DO, GAUDENCIO K 787.20 Dysphagia Unspecified 11/20/2011 SETWART DO, GAUDENCIO K 789.36 Abdominal Or Pelvic [...] From Female Genital Tract 03/30/2012 Ot 530.81 ESOPHAGEAL REFLUX 04/01/2012 V18.19 FAMILY HISTORY OF OTHER ENDOCRINE [...] Abnormal Bleeding From Female Genital Tract 04/04/2012 GAUDENCIO STEWART DO K 626.9 Menstruation And Other Abnormal Bleeding From Female Genital Tract 04/11/2012 COLLEEN STEWART DOA K 611.72 BREAST LUMP OR MASS 04/11/2012 STEWART DO GAUDENCIO K 611.72 BREAST LUMP OR MASS 04/11/2012 611.72 BREAST LUMP OR MASS 04/11/2012 STEWART DOCOLLEENA K 611.72 BREAST LUMP OR MASS 05/02/2012 [...] WEINSTEIN 401.9 UNSPECIFIED ESSENTIAL HYPERTENSION 06/29/2012 ASHANTI AMERICAN HISTORY TEACHER, ROCHELLE 250.00 DIABETES MELLITUS WITHOUT MENTION OF COMPLICATION TYPE II OR UNSPECIFIED TYPE NOT STATED UNCONTROLLED 06/29/2012 ASHANTI MENDES, ROCHELLE 401.9 UNSPECIFIED ESSENTIAL HYPERTENSION 06/29/2012 IFEANYI FAULKNER MD 250.00 DIABETES MELLITUS WITHOUT MENTION OF COMPLICATION TYPE II OR UNSPECIFIED TYPE NOT STATED UNCONTROLLED 06/29/2012 IFEANYI FAULKNER MD 401.9 UNSPECIFIED ESSENTIAL HYPERTENSION 06/29/2012 ARIANNAMIKE AMERICAN HISTORY TEACHER, MICHAEL 250.00 DIABETES MELLITUS WITHOUT MENTION OF COMPLICATION TYPE II OR UNSPECIFIED TYPE NOT STATED UNCONTROLLED 06/29/2012 ARIANNAMIKE AMERICAN HISTORY TEACHER, MICHAEL 401.9 UNSPECIFIED ESSENTIAL HYPERTENSION 06/29/2012 ASHANTI AMERICAN HISTORY TEACHER, ROCHELLE 250.00 DIABETES MELLITUS WITHOUT MENTION OF COMPLICATION TYPE II OR UNSPECIFIED TYPE NOT STATED UNCONTROLLED 06/29/2012 ASHANTI AMERICAN HISTORY TEACHER, ROCHELLE 401.9 UNSPECIFIED ESSENTIAL HYPERTENSION 06/29/2012 ASHANTI AMERICAN HISTORY TEACHER, ROCHELLE 250.00 DIABETES MELLITUS WITHOUT MENTION OF COMPLICATION TYPE II OR UNSPECIFIED TYPE NOT STATED UNCONTROLLED 06/29/2012 ASHANTI AMERICAN HISTORY TEACHER, ROCHELLE 401.9 UNSPECIFIED ESSENTIAL HYPERTENSION 06/29/2012 ASHANTI AMERICAN HISTORY TEACHER, ROCHELLE 250.00 DIABETES MELLITUS WITHOUT MENTION OF COMPLICATION TYPE II OR UNSPECIFIED TYPE NOT STATED UNCONTROLLED 06/29/2012 ASHANTI AMERICAN HISTORY TEACHER, ROCHELLE 401.9 UNSPECIFIED ESSENTIAL HYPERTENSION 06/29/2012 ASHANTI AMERICAN HISTORY TEACHER, ROCHELLE 250.00 DIABETES MELLITUS WITHOUT MENTION OF COMPLICATION TYPE II OR UNSPECIFIED TYPE NOT STATED UNCONTROLLED 06/29/2012 ASHANTI AMERICAN HISTORY TEACHER, ROCHELLE 401.9 UNSPECIFIED ESSENTIAL HYPERTENSION 06/29/2012 ASHANTI AMERICAN HISTORY TEACHER, ROCHELLE 250.00 DIABETES MELLITUS WITHOUT MENTION OF COMPLICATION TYPE II OR UNSPECIFIED TYPE NOT STATED UNCONTROLLED 06/29/2012 ASHANTI AMERICAN HISTORY TEACHER, ROCHELLE 401.9 UNSPECIFIED ESSENTIAL HYPERTENSION 06/29/2012 BRENT HYLTON 250.00 DIABETES MELLITUS WITHOUT MENTION OF COMPLICATION TYPE II OR UNSPECIFIED TYPE NOT STATED UNCONTROLLED 06/29/2012 BRENT HYLTON 401.9 UNSPECIFIED ESSENTIAL HYPERTENSION 06/29/2012 STEFFANY JUAREZ DO 250.00 DIABETES MELLITUS WITHOUT MENTION OF COMPLICATION TYPE II OR UNSPECIFIED TYPE NOT STATED UNCONTROLLED 06/29/2012 NGMODE DONAVIDE 401.9 UNSPECIFIED ESSENTIAL HYPERTENSION 06/29/2012 NGAR DO, STEFFANY 250.00 DIABETES MELLITUS WITHOUT MENTION OF COMPLICATION TYPE II OR UNSPECIFIED TYPE NOT STATED UNCONTROLLED 06/29/2012 NGAR DO, STEFFANY 401.9 UNSPECIFIED ESSENTIAL HYPERTENSION 06/29/2012 ASHANTI AMERICAN HISTORY TEACHER, ROCHELLE 250.00 DIABETES MELLITUS WITHOUT MENTION OF COMPLICATION TYPE II OR UNSPECIFIED TYPE NOT STATED UNCONTROLLED 06/29/2012 ASHANTI AMERICAN HISTORY TEACHER, ROCHELLE 401.9 UNSPECIFIED ESSENTIAL HYPERTENSION 06/29/2012 ASHANTI AMERICAN HISTORY TEACHER, ROCHELLE 250.00 DIABETES MELLITUS WITHOUT MENTION OF COMPLICATION TYPE II OR UNSPECIFIED TYPE NOT STATED UNCONTROLLED 06/29/2012 AHSANTI AMERICAN HISTORY TEACHER, ROCHELLE 401.9 UNSPECIFIED ESSENTIAL HYPERTENSION 06/29/2012 KAYLEEADE DO, TERA 250.00 DIABETES MELLITUS WITHOUT MENTION OF COMPLICATION TYPE II OR UNSPECIFIED TYPE NOT STATED UNCONTROLLED 06/29/2012 ALETA DO TERA 401.9 UNSPECIFIED ESSENTIAL HYPERTENSION 06/29/2012 ASHANTI AMERICAN HISTORY TEACHER, ROCHELLE 250.00 DIABETES MELLITUS WITHOUT MENTION OF COMPLICATION TYPE II OR UNSPECIFIED TYPE NOT STATED UNCONTROLLED 06/29/2012 YAN BURRELL APRNA 401.9 UNSPECIFIED ESSENTIAL HYPERTENSION 06/29/2012 KATDRKHOA, SERA 250.00 DIABETES MELLITUS WITHOUT MENTION OF COMPLICATION TYPE II OR UNSPECIFIED TYPE NOT STATED UNCONTROLLED 06/29/2012 SAMMIE SAMANIEGOA 401.9 UNSPECIFIED ESSENTIAL HYPERTENSION 06/29/2012 ASHANTI AMERICAN HISTORY TEACHER, ROCHELLE 250.00 DIABETES MELLITUS WITHOUT MENTION OF COMPLICATION TYPE II OR UNSPECIFIED TYPE NOT STATED UNCONTROLLED 06/29/2012 ASHANTI MENDES ROCHELLE 401.9 UNSPECIFIED ESSENTIAL HYPERTENSION 06/29/2012 VONTORIN, SERA 250.00 DIABETES MELLITUS WITHOUT MENTION OF COMPLICATION TYPE II OR UNSPECIFIED TYPE NOT STATED UNCONTROLLED 06/29/2012 SAMMIE SAMANIEGOA 401.9 UNSPECIFIED ESSENTIAL HYPERTENSION 06/29/2012 ASHANTI MENDES, ROCHELLE 250.00 DIABETES MELLITUS WITHOUT MENTION OF COMPLICATION TYPE II OR UNSPECIFIED TYPE NOT STATED UNCONTROLLED 06/29/2012 YAN BURRELL APRNA 401.9 UNSPECIFIED ESSENTIAL HYPERTENSION 07/06/2012 PENELOPE WEINSTEIN 272.4 OTHER AND UNSPECIFIED HYPERLIPIDEMIA 07/06/2012 ROCHELLE BURRELL APRN 272.4 OTHER AND UNSPECIFIED HYPERLIPIDEMIA 07/06/2012 IFEANYI FAULKNER MD 272.4 OTHER AND UNSPECIFIED HYPERLIPIDEMIA 07/06/2012 GOLAY AMERICAN HISTORY TEACHER, MICHAEL 272.4 OTHER AND UNSPECIFIED HYPERLIPIDEMIA 07/06/2012 ASHANTI AMERICAN HISTORY TEACHER, ROCHELLE 272.4 OTHER AND UNSPECIFIED HYPERLIPIDEMIA 07/06/2012 ASHANTI AMERICAN HISTORY TEACHER, ROCHELLE 272.4 OTHER AND UNSPECIFIED HYPERLIPIDEMIA 07/06/2012 ASHANTI AMERICAN HISTORY TEACHER, ROCHELLE 272.4 OTHER AND UNSPECIFIED HYPERLIPIDEMIA 07/06/2012 ASHANTI AMERICAN HISTORY TEACHER, ROCHELLE 272.4 OTHER AND UNSPECIFIED HYPERLIPIDEMIA 07/06/2012 ASHANTI AMERICAN HISTORY TEACHER, ROCHELLE 272.4 OTHER AND UNSPECIFIED HYPERLIPIDEMIA 07/06/2012 BRENT HYLTON 272.4 OTHER AND UNSPECIFIED HYPERLIPIDEMIA 07/06/2012 NGAR DO STEFFANY 272.4 OTHER AND UNSPECIFIED HYPERLIPIDEMIA 07/06/2012 NGAR DO, STEFFANY 272.4 OTHER AND UNSPECIFIED HYPERLIPIDEMIA 07/06/2012 ASHANTI AMERICAN HISTORY TEACHER, ROCHELLE 272.4 OTHER AND UNSPECIFIED HYPERLIPIDEMIA 07/06/2012 ASHANTI AMERICAN HISTORY TEACHER, ROCHELLE 272.4 OTHER AND UNSPECIFIED HYPERLIPIDEMIA 07/06/2012 [place] DO 272.4 OTHER AND UNSPECIFIED HYPERLIPIDEMIA 07/06/2012 ASHANTI AMERICAN HISTORY TEACHER, ROCHELLE 272.4 OTHER AND UNSPECIFIED HYPERLIPIDEMIA 07/06/2012 ADEN SERA 272.4 OTHER AND UNSPECIFIED HYPERLIPIDEMIA 07/06/2012 ASHANTI AMERICAN HISTORY TEACHER, ROCHELLE 272.4 OTHER AND UNSPECIFIED HYPERLIPIDEMIA 07/06/2012 VONDRACEK, SERA 272.4 OTHER AND UNSPECIFIED HYPERLIPIDEMIA 07/06/2012 ASHANTI AMERICAN HISTORY TEACHER, ROCHELLE 272.4 OTHER AND UNSPECIFIED HYPERLIPIDEMIA 07/20/2012 PENELOPE WEINSTEIN 300.00 ANXIETY STATE UNSPECIFIED 07/20/2012 ASHANTI MENDES, ROCHELLE 300.00 ANXIETY STATE UNSPECIFIED 07/20/2012 IFEANYI FAULKNER MD 300.00 ANXIETY STATE UNSPECIFIED 07/20/2012 TRENT AMERICAN HISTORY TEACHER, MICHAEL 300.00 ANXIETY STATE UNSPECIFIED 07/20/2012 ASHANTI AMERICAN HISTORY TEACHER, ROCHELLE 300.00 ANXIETY STATE UNSPECIFIED 07/20/2012 ASHANTI AMERICAN HISTORY TEACHER, ROCHELLE 300.00 ANXIETY STATE UNSPECIFIED 07/20/2012 ASHANTI AMERICAN HISTORY TEACHER, ROCHELLE 300.00 ANXIETY STATE UNSPECIFIED 07/20/2012 ASHANTI AMERICAN HISTORY TEACHER, ROCHELLE 300.00 ANXIETY STATE UNSPECIFIED 07/20/2012 ASHANTI MENDES, ROCHELLE 300.00 ANXIETY STATE UNSPECIFIED 07/20/2012 WARNER BRENT 300.00 ANXIETY STATE UNSPECIFIED 07/20/2012 NGAR DO, STEFFANY 300.00 ANXIETY STATE UNSPECIFIED 07/20/2012 NGAR DO, STEFFANY 300.00 ANXIETY STATE UNSPECIFIED 07/20/2012 ASHANTI AMERICAN HISTORY TEACHER, ROCHELLE 300.00 ANXIETY STATE UNSPECIFIED 07/20/2012 ASHANTI TEJADAN, ROCHELLE 300.00 ANXIETY STATE UNSPECIFIED 07/20/2012 [place] DO 300.00 ANXIETY STATE UNSPECIFIED 07/20/2012 ASHANTI AMERICAN HISTORY TEACHER, ROCHELLE 300.00 ANXIETY STATE UNSPECIFIED 07/20/2012 ADEN SERA 300.00 ANXIETY STATE UNSPECIFIED 07/20/2012 ASHANTI AMERICAN HISTORY TEACHER, ROCHELLE 300.00 ANXIETY STATE UNSPECIFIED 07/20/2012 ADEN SERA 300.00 ANXIETY STATE UNSPECIFIED 07/20/2012 ASHANTI MENDES, ROCHELLE 300.00 ANXIETY STATE UNSPECIFIED 07/26/2012 PENELOPE WEINSTEIN 784.0 HEADACHE 07/26/2012 PENELOPE WEINSTEIN 786.09 RESPIRATORY ABNORMALITY OTHER 07/26/2012 ASHANTI AMERICAN HISTORY TEACHER, ROCHELLE 784.0 HEADACHE 07/26/2012 ASHANTI TEJADAN, ROCHELLE 786.09 RESPIRATORY ABNORMALITY OTHER 07/26/2012 IFEANIY FAULKNER MD 784.0 HEADACHE 07/26/2012 IFEANYI FAULKNER MD 786.09 RESPIRATORY ABNORMALITY OTHER 07/26/2012 GOLMIKE AMERICAN HISTORY TEACHER, MICHAEL 784.0 HEADACHE 07/26/2012 GOLMIKE AMERICAN HISTORY TEACHER, MICHAEL 786.09 RESPIRATORY ABNORMALITY OTHER 07/26/2012 ASHANTI AMERICAN HISTORY TEACHER, ROCHELLE 784.0 HEADACHE 07/26/2012 ASHANTI AMERICAN HISTORY TEACHER, ROCHELLE 786.09 RESPIRATORY ABNORMALITY OTHER 07/26/2012 ASHANTI AMERICAN HISTORY TEACHER, ROCHELLE 784.0 HEADACHE 07/26/2012 ASHANTI AMERICAN HISTORY TEACHER, ROCHELLE 786.09 RESPIRATORY ABNORMALITY OTHER 07/26/2012 ASHANTI AMERICAN HISTORY TEACHER, ROCHELLE 784.0 HEADACHE 07/26/2012 ASHANTI AMERICAN HISTORY TEACHER, ROCHELLE 786.09 RESPIRATORY ABNORMALITY OTHER 07/26/2012 ASHANTI AMERICAN HISTORY TEACHER, ROCHELLE 784.0 HEADACHE 07/26/2012 ASHANTI AMERICAN HISTORY TEACHER, ROCHELLE 786.09 RESPIRATORY ABNORMALITY OTHER 07/26/2012 AHSANTI AMERICAN HISTORY TEACHER, ROCHELLE 784.0 HEADACHE 07/26/2012 ASHANTI AMERICAN HISTORY TEACHER, ROCHELLE 786.09 RESPIRATORY ABNORMALITY OTHER 07/26/2012 BRENT HYLTON 784.0 HEADACHE 07/26/2012 BRENT HYLTON 786.09 RESPIRATORY ABNORMALITY OTHER 07/26/2012 NGAR DO, STEFFANY 784.0 HEADACHE 07/26/2012 NGAR DO, STEFFANY 786.09 RESPIRATORY ABNORMALITY OTHER 07/26/2012 NGAR DO, STEFFANY 784.0 HEADACHE 07/26/2012 NGAR DO, STEFFANY 786.09 RESPIRATORY ABNORMALITY OTHER 07/26/2012 ASHANTI AMERICAN HISTORY TEACHER, ROCHELLE 784.0 HEADACHE 07/26/2012 ASHANTI AMERICAN HISTORY TEACHER, ROCHELLE 786.09 RESPIRATORY ABNORMALITY OTHER 07/26/2012 ASHANTI AMERICAN HISTORY TEACHER, ROCHELLE 784.0 HEADACHE 07/26/2012 ASHANTI MENDES, ROCHELLE 786.09 RESPIRATORY ABNORMALITY OTHER 07/26/2012 SWADE DO, TERA 784.0 HEADACHE 07/26/2012 SWADE DO, TERA 786.09 RESPIRATORY ABNORMALITY OTHER 07/26/2012 ASHANTI MENDES, ROCHELLE 784.0 HEADACHE 07/26/2012 ASHANTI MENDES, ROCHELLE 786.09 RESPIRATORY ABNORMALITY OTHER 07/26/2012 VONDRACEK, SERA 784.0 HEADACHE 07/26/2012 VONDRACEK, SERA 786.09 RESPIRATORY ABNORMALITY OTHER 07/26/2012 ASHANTI MENDES, ROCHELLE 784.0 HEADACHE 07/26/2012 ASHANTI AMERICAN HISTORY TEACHER, ROCHELLE 786.09 RESPIRATORY ABNORMALITY OTHER 07/26/2012 VONDRACEK, SERA 784.0 HEADACHE 07/26/2012 VONDRACEK, SERA 786.09 RESPIRATORY ABNORMALITY OTHER 07/26/2012 ASHANTI MENDES, ROCHELLE 784.0 HEADACHE 07/26/2012 ASHANTI MENDES, ROCHELLE 786.09 RESPIRATORY ABNORMALITY OTHER 08/22/2012 LOS MERLOS, FRANCY Morocho Ot 780.4 DIZZINESS AND GIDDINESS 08/22/2012 LOS MERLOS, FRANCY Morocho Ot 780.79 OTH MALAISE FATIGUE 08/22/2012 LOS MERLOS, FRANCY Morocho Ot 786.05 SHORTNESS OF BREATH 08/22/2012 FRANCY MADISON MD Ot 786.09 RESPIRATORY ABNORM NEC 09/21/2012 GAUDENCIO STEWART DO K 786.05 SHORTNESS OF BREATH 09/21/2012 GAUDENCIO STEWART DO V15.09 PERSONAL HISTORY OF OTHER ALLERGY OTHER THAN TO MEDICINAL AGENTS 10/12/2012 GAUDENCIO STEWART DO K 626.9 Menstruation And Other Abnormal Bleeding From Female Genital Tract 12/07/2012 PENELOPE WEINSTEIN 296.22 MAJOR DEPRESSIVE AFFECTIVE DISORDER SINGLE EPISODE MODERATE DEGREE 12/07/2012 PENELOPE WEINSTEIN 386.11 BENIGN PAROXYSMAL POSITIONAL VERTIGO 12/07/2012 PENELOPE WEINSTEIN 729.1 MYALGIA AND MYOSITIS UNSPECIFIED 12/07/2012 YAN [...] AFFECTIVE DISORDER SINGLE EPISODE MODERATE DEGREE 12/07/2012 GABI NEWMAN APRNA 386.11 BENIGN PAROXYSMAL POSITIONAL VERTIGO 12/07/2012 MICHAEL NEWMAN APRN 729.1 MYALGIA AND MYOSITIS UNSPECIFIED 12/07/2012 ASHANTI MENDES ROCHELLE 296.22 MAJOR DEPRESSIVE AFFECTIVE DISORDER SINGLE EPISODE MODERATE DEGREE 12/07/2012 ASHANTI MENDES ROCHELLE 386.11 BENIGN PAROXYSMAL POSITIONAL VERTIGO 12/07/2012 YAN BURRELL APRNA 729.1 MYALGIA AND MYOSITIS UNSPECIFIED 12/07/2012 ASHANTI MENDES ROCHELLE 296.22 MAJOR DEPRESSIVE AFFECTIVE DISORDER SINGLE EPISODE MODERATE DEGREE 12/07/2012 ASHANTI MENDES ROCHELLE 386.11 BENIGN PAROXYSMAL POSITIONAL VERTIGO 12/07/2012 ASHANTI MENDES ROCHELLE 729.1 MYALGIA AND MYOSITIS UNSPECIFIED 12/07/2012 ASHANTI MENDES ROCHELLE 296.22 MAJOR DEPRESSIVE AFFECTIVE DISORDER SINGLE EPISODE MODERATE DEGREE 12/07/2012 ASHANTI MENDES ROCHELLE 386.11 BENIGN PAROXYSMAL POSITIONAL VERTIGO 12/07/2012 YAN BURRELL APRNA 729.1 MYALGIA AND MYOSITIS UNSPECIFIED 12/07/2012 ASHANTI AMERICAN HISTORY TEACHER, ROCHELLE 296.22 MAJOR DEPRESSIVE AFFECTIVE DISORDER SINGLE [...] HYLTON 729.1 MYALGIA AND MYOSITIS UNSPECIFIED 12/07/2012 NGMAG COELLO DOGIE 296.22 MAJOR DEPRESSIVE AFFECTIVE DISORDER SINGLE EPISODE MODERATE DEGREE 12/07/2012 NGMODE ISBELL STEFFANY 386.11 BENIGN PAROXYSMAL POSITIONAL VERTIGO 12/07/2012 NGMODE DO STEFFANY 729.1 MYALGIA AND MYOSITIS UNSPECIFIED 12/07/2012 ANN DO STEFFANY 296.22 MAJOR DEPRESSIVE AFFECTIVE DISORDER SINGLE EPISODE MODERATE DEGREE 12/07/2012 NGAR DO STEFFANY 386.11 BENIGN PAROXYSMAL POSITIONAL VERTIGO 12/07/2012 ANN DO STEFFANY 729.1 MYALGIA AND MYOSITIS UNSPECIFIED 12/07/2012 [...] DO 729.1 MYALGIA AND MYOSITIS UNSPECIFIED 12/07/2012 ROCHELLE BURRELL APRN 296.22 MAJOR DEPRESSIVE AFFECTIVE DISORDER SINGLE EPISODE MODERATE DEGREE 12/07/2012 YAN BURRELL APRNA 386.11 BENIGN PAROXYSMAL POSITIONAL VERTIGO 12/07/2012 YAN BURRELL APRNA 729.1 MYALGIA AND MYOSITIS UNSPECIFIED 12/07/2012 SERA SAMANIEGO 296.22 MAJOR DEPRESSIVE AFFECTIVE DISORDER SINGLE EPISODE MODERATE DEGREE 12/07/2012 SAMMIE SAMANIEGOA 386.11 BENIGN PAROXYSMAL POSITIONAL VERTIGO 12/07/2012 SERA SAMANIEGO 729.1 MYALGIA AND MYOSITIS UNSPECIFIED 12/07/2012 ROCHELLE BURRELL APRN 296.22 MAJOR DEPRESSIVE AFFECTIVE DISORDER SINGLE EPISODE MODERATE DEGREE 12/07/2012 ROCHELLE BURRELL APRN 386.11 BENIGN PAROXYSMAL POSITIONAL VERTIGO 12/07/2012 ROCHELLE [...] MYALGIA AND MYOSITIS UNSPECIFIED 03/03/2013 PENELOPE WEINSTEIN Ot 327.23 OBSTRUCTIVE SLEEP APNEA (ADULT) (PEDIATR 03/22/2013 ROCHELLE BURRELL APRN 626.9 UNSPECIFIED DISORDERS [...] ABNORMAL BLEEDING FROM FEMALE GENITAL TRACT 03/22/2013 TRENT MENDES, MICHAEL 789.00 ABDOMINAL PAIN UNSPECIFIED SITE 03/22/2013 [...] 789.00 ABDOMINAL PAIN UNSPECIFIED SITE 03/22/2013 ASHANTI AMER[employer] HISTORY TEACHER, ROCHELLE 626.9 UNSPECIFIED DISORDERS OF MENSTRUATION AND OTHER ABNORMAL BLEEDING FROM FEMALE GENITAL TRACT 03/22/2013 ASHANTI MENDES, ROCHELLE 789.00 ABDOMINAL PAIN UNSPECIFIED SITE 03/22/2013 [place] DO 626.9 UNSPECIFIED DISORDERS OF MENSTRUATION AND OTHER ABNORMAL BLEEDING FROM FEMALE GENITAL TRACT 03/22/2013 ALETA DO, TERA 789.00 ABDOMINAL PAIN UNSPECIFIED SITE 03/22/2013 ROCHELLE BURRELL APRN 626.9 UNSPECIFIED DISORDERS [...] ABNORMAL BLEEDING FROM FEMALE GENITAL TRACT 03/22/2013 SAMMIE SAMANIEGOA 789.00 ABDOMINAL PAIN UNSPECIFIED SITE 03/22/2013 ROCHELLE BURRELL APRN 626.9 UNSPECIFIED DISORDERS OF MENSTRUATION AND OTHER ABNORMAL BLEEDING FROM FEMALE GENITAL TRACT 03/22/2013 ASHANTI MENDES, ROCHELLE 789.00 ABDOMINAL PAIN UNSPECIFIED SITE 04/27/2013 IFEANYI FAULKNER MD 780.57 SLEEP APNEA 04/27/2013 MICHAEL NEWMAN APRN 780.57 SLEEP APNEA 04/27/2013 YAN BURRELL APRNA 780.57 SLEEP APNEA 04/27/2013 ASHANTI MENDES ROCHELLE 780.57 SLEEP APNEA 04/27/2013 ASHANTI MENDES ROCHELLE 780.57 SLEEP APNEA 04/27/2013 YAN BURRELL APRNA 780.57 SLEEP APNEA 04/27/2013 YAN BURRELL APRNA 780.57 SLEEP APNEA 04/27/2013 BRENT HYLTON 780.57 SLEEP APNEA 04/27/2013 STEFFANY JUAREZ DO 780.57 SLEEP APNEA 04/27/2013 STEFFANY JUAREZ DO 780.57 SLEEP APNEA 04/27/2013 ASHANTI AMERICAN HISTORY TEACHER, ROCHELLE 780.57 SLEEP APNEA 04/27/2013 ASHANTI AMERICAN HISTORY TEACHER, ROCHELLE 780.57 SLEEP APNEA 04/27/2013 TERA RIVER DO 780.57 SLEEP APNEA 04/27/2013 ASHANTI AMERICAN HISTORY TEACHER, ROCHELLE 780.57 SLEEP APNEA 04/27/2013 SAMMIE SAMANIEGOA 780.57 SLEEP APNEA 04/27/2013 ASHANTI AMERICAN HISTORY TEACHER, ROCHELLE 780.57 SLEEP APNEA 04/27/2013 ADEN SERA 780.57 SLEEP APNEA 04/27/2013 ASHANTI AMERICAN HISTORY TEACHER, ROCHELLE 780.57 SLEEP APNEA 07/05/2013 ASHANTI AMERICAN HISTORY TEACHER, ROCHELLE 611.72 LUMP OR MASS IN BREAST [...] 780.79 OTHER MALAISE AND FATIGUE 07/05/2013 ASHANTI MENDES, ROCHELLE V69.2 HIGH-RISK SEXUAL BEHAVIOR 07/05/2013 ASHANTI MENDES ROCHELLE 611.72 LUMP OR MASS IN BREAST 07/05/2013 ASHANTI MENDES ROCHELLE 780.79 OTHER MALAISE AND FATIGUE 07/05/2013 ASHANTI TEJADAN ROCHELLE V69.2 HIGH-RISK SEXUAL BEHAVIOR 07/05/2013 ASHANTI TEJADAN, ROCHELLE 611.72 LUMP OR MASS IN BREAST 07/05/2013 ASHANTI MENDES ROCHELLE 780.79 OTHER MALAISE AND FATIGUE 07/05/2013 ASHANTI TEJADAN, ROCHELLE V69.2 HIGH-RISK SEXUAL BEHAVIOR 07/05/2013 BRENT HYLTON 611.72 LUMP OR MASS IN BREAST 07/05/2013 BRENT HYLTON 780.79 OTHER MALAISE AND FATIGUE 07/05/2013 BRENT HYLTON V69.2 HIGH-RISK SEXUAL BEHAVIOR 07/05/2013 NGAR DO, STEFFANY 611.72 LUMP OR MASS IN BREAST 07/05/2013 NGAR DO STEFFANY 780.79 OTHER MALAISE AND FATIGUE 07/05/2013 NGAR DO, STEFFANY V69.2 HIGH-RISK SEXUAL BEHAVIOR 07/05/2013 NGAR DO, STEFFANY 611.72 LUMP OR MASS IN BREAST 07/05/2013 AR DO STEFFANY 780.79 OTHER MALAISE AND FATIGUE 07/05/2013 AR DO, STEFFANY V69.2 HIGH-RISK SEXUAL BEHAVIOR 07/05/2013 ASHANTI MENDES, ROCHELLE 611.72 LUMP OR MASS IN BREAST 07/05/2013 ROCHELLE BURRELL APRN 780.79 OTHER MALAISE AND FATIGUE 07/05/2013 ASHANTI MENDES ROCHELLE V69.2 HIGH-RISK SEXUAL BEHAVIOR 07/05/2013 ASHANTI MENDES ROCHELLE 611.72 LUMP OR MASS IN BREAST 07/05/2013 ASHANTI MENDES ROCEHLLE 780.79 OTHER MALAISE AND FATIGUE 07/05/2013 ASHANTI MENDES ROCHELLE V69.2 HIGH-RISK SEXUAL BEHAVIOR 07/05/2013 TERA RIVER DO 611.72 LUMP OR MASS IN BREAST 07/05/2013 TERA RVIER DO 780.79 OTHER MALAISE AND FATIGUE 07/05/2013 TERA RIVER DO V69.2 HIGH-RISK SEXUAL BEHAVIOR 07/05/2013 ASHANTI MENDES ROCHELLE 611.72 LUMP OR MASS IN BREAST 07/05/2013 ASHANTI MENDES ROCHELLE 780.79 OTHER MALAISE AND FATIGUE 07/05/2013 ASHANTI MENDES ROCHELLE V69.2 HIGH-RISK SEXUAL BEHAVIOR 07/05/2013 SAMMIE SAMANIEGOA 611.72 LUMP OR MASS IN BREAST 07/05/2013 SERA SAMANIEGO 780.79 OTHER MALAISE AND FATIGUE 07/05/2013 ADEN SERA V69.2 HIGH-RISK SEXUAL BEHAVIOR 07/05/2013 ASHANTI MENDES ROCHELLE 611.72 LUMP OR MASS IN BREAST 07/05/2013 ASHANTI MENDES ROCHELLE 780.79 OTHER MALAISE AND FATIGUE 07/05/2013 ASHANTI MENDES, ROCHELLE V69.2 HIGH-RISK SEXUAL BEHAVIOR 07/05/2013 SERA SAMANIEGO 611.72 LUMP OR MASS IN BREAST 07/05/2013 SAMMIE SAMANIEGOA 780.79 OTHER MALAISE AND FATIGUE 07/05/2013 KATSAMMIE HARKINSA V69.2 HIGH-RISK SEXUAL BEHAVIOR 07/05/2013 ASHANTI AMERICAN HISTORY TEACHER, ROCHELLE 611.72 LUMP OR MASS IN BREAST 07/05/2013 ASHANTI AMERICAN HISTORY TEACHER, ROCHELLE 780.79 OTHER MALAISE AND FATIGUE 07/05/2013 ASHANTI AMERICAN HISTORY TEACHER, ROCHELLE V69.2 HIGH-RISK SEXUAL BEHAVIOR 09/11/2013 ASHANTI TEJADAN, ROCHELLE 493.90 ASTHMA UNSPECIFIED 09/11/2013 ASHANTI TEJADAN, ROCHELLE 530.81 ESOPHAGEAL REFLUX 09/11/2013 ASHANTI TEJADAN, ROCHELLE 786.50 UNSPECIFIED CHEST PAIN 09/11/2013 ASHANTI MENDES, ROCHELLE 493.90 ASTHMA UNSPECIFIED 09/11/2013 ASHANTI MENDES, ROCHELLE 530.81 ESOPHAGEAL REFLUX 09/11/2013 ASHANTI TEJADAN, ROCHELLE 786.50 UNSPECIFIED CHEST PAIN 09/11/2013 ASHANTI AMERICAN HISTORY TEACHER, ROCHELLE 493.90 ASTHMA UNSPECIFIED 09/11/2013 ASHANTI TEJADAN, ROCHELLE 530.81 ESOPHAGEAL REFLUX 09/11/2013 ASHANTI TEJADAN, ROCHELLE 786.50 UNSPECIFIED CHEST PAIN 09/11/2013 BRENT HYLTON 493.90 ASTHMA UNSPECIFIED 09/11/2013 BRENT HYLTON 530.81 ESOPHAGEAL REFLUX 09/11/2013 BRENT HYLTON 786.50 UNSPECIFIED CHEST PAIN 09/11/2013 NGAR DO, STEFFANY 493.90 ASTHMA UNSPECIFIED 09/11/2013 NGAR DO, STEFFANY 530.81 ESOPHAGEAL REFLUX 09/11/2013 NGAR DO, STEFFANY 786.50 UNSPECIFIED CHEST PAIN 09/11/2013 NGAR DO, STEFFANY 493.90 ASTHMA UNSPECIFIED 09/11/2013 NGAR DO, STEFFANY 530.81 ESOPHAGEAL REFLUX 09/11/2013 NGAR DO, STEFFANY 786.50 UNSPECIFIED CHEST PAIN 09/11/2013 ASHANTI MENDES, ROCHELLE 493.90 ASTHMA UNSPECIFIED 09/11/2013 ASHANTI MENDES, ROCHELLE 530.81 ESOPHAGEAL REFLUX 09/11/2013 ASHANTI AMERICAN HISTORY TEACHER, ROCHELLE 786.50 UNSPECIFIED CHEST PAIN 09/11/2013 ASHANTI AMERICAN HISTORY TEACHER, ROCHELLE 493.90 ASTHMA UNSPECIFIED 09/11/2013 ASHANTI AMERICAN HISTORY TEACHER, ROCHELLE 530.81 ESOPHAGEAL REFLUX 09/11/2013 ASHANTI AMERICAN HISTORY TEACHER, ROCHELLE 786.50 UNSPECIFIED CHEST PAIN 09/11/2013 SWADE DO, TERA 493.90 ASTHMA UNSPECIFIED 09/11/2013 SWADE DO, TERA 530.81 ESOPHAGEAL REFLUX 09/11/2013 SWADE DO, TERA 786.50 UNSPECIFIED CHEST PAIN 09/11/2013 ASHANTI AMERICAN HISTORY TEACHER, ROCHELLE 493.90 ASTHMA UNSPECIFIED 09/11/2013 ASHANTI AMERICAN HISTORY TEACHER, ROCHELLE 530.81 ESOPHAGEAL REFLUX 09/11/2013 ASHANTI AMERICAN HISTORY TEACHER, ROCHELLE 786.50 UNSPECIFIED CHEST PAIN 09/11/2013 VONTORIN SERA 493.90 ASTHMA UNSPECIFIED 09/11/2013 ADEN, SERA 530.81 ESOPHAGEAL REFLUX 09/11/2013 ADEN SERA 786.50 UNSPECIFIED CHEST PAIN 09/11/2013 ASHANTI AMERICAN HISTORY TEACHER, ROCHELLE 493.90 ASTHMA UNSPECIFIED 09/11/2013 ASHANTI AMERICAN HISTORY TEACHER, ROCHELLE 530.81 ESOPHAGEAL REFLUX 09/11/2013 ASHANTI AMERICAN HISTORY TEACHER, ROCHELLE 786.50 UNSPECIFIED CHEST PAIN 09/11/2013 VONACEK, SERA 493.90 ASTHMA UNSPECIFIED 09/11/2013 VONACEK, SERA 530.81 ESOPHAGEAL REFLUX 09/11/2013 VONTORIN, SERA 786.50 UNSPECIFIED CHEST PAIN 09/11/2013 ASHANTI AMERICAN HISTORY TEACHER, ROCHELLE 493.90 ASTHMA UNSPECIFIED 09/11/2013 ASHANTI TEJADAN, ROCHELLE 530.81 ESOPHAGEAL REFLUX 09/11/2013 ASHANTI AMERICAN HISTORY TEACHER, ROCHELLE 786.50 UNSPECIFIED CHEST PAIN 11/24/2013 BRENT HYLTON 112.1 CANDIDIASIS OF VULVA AND VAGINA 11/24/2013 BRENT HYLTON 296.80 BIPOLAR DISORDER UNSPECIFIED 11/24/2013 BRENT HYLTON 301.83 BORDERLINE PERSONALITY DISORDER 11/24/2013 STEFFANY JAUREZ DO 112.1 CANDIDIASIS OF VULVA AND VAGINA [...] SERA SAMANIEGO 301.83 BORDERLINE PERSONALITY DISORDER 11/24/2013 YAN BURRELL APRNA 112.1 CANDIDIASIS OF VULVA AND VAGINA 11/24/2013 [...] V76.12 03/23/2014 Ot 793.89 03/26/2014 ROCHELLE BURRELL AMERICAN HISTORY TEACHER Ot 339.82 03/26/2014 ROCHELLE BURRELL AMERICAN HISTORY TEACHER Ot V81.5 04/03/2014 TERA RIVER DO 110.1 DERMATOPHYTOSIS OF NAIL 04/03/2014 TERA RIVER DO 790.6 OTHER ABNORMAL BLOOD CHEMISTRY 04/03/2014 ROCHELLE BURRELL APRN 110.1 DERMATOPHYTOSIS OF NAIL 04/03/2014 ROCHELLE BURRELL APRN 790.6 OTHER ABNORMAL BLOOD CHEMISTRY 04/03/2014 SERA SAMANIEGO 110.1 DERMATOPHYTOSIS OF NAIL 04/03/2014 SERA SAMANIEGO 790.6 OTHER ABNORMAL BLOOD CHEMISTRY 04/03/2014 ROCHELLE BURRELL APRN 110.1 DERMATOPHYTOSIS OF NAIL 04/03/2014 ROCHELLE BURRELL APRN 790.6 OTHER ABNORMAL BLOOD CHEMISTRY 04/03/2014 SERA SAMANIEGO 110.1 DERMATOPHYTOSIS OF NAIL 04/03/2014 SERA SAMANIEGO 790.6 OTHER ABNORMAL BLOOD CHEMISTRY 04/03/2014 ROCHELLE [...] 04/11/2014 Ot V76.12 04/11/2014 Ot 793.89 04/11/2014 ASHANTIROCHELLE AMERICAN HISTORY TEACHER Ot 339.82 04/11/2014 ASHANTI ROCHELLE M AMERICAN HISTORY TEACHER Ot V81.5 04/11/2014 ASHANTI ROCHELLE M AMERICAN HISTORY TEACHER Ot 339.82 04/16/2014 ASHANTI ROCHELLE M AMERICAN HISTORY TEACHER Ot 339.82 04/16/2014 ASHANTI ROCHELLE M AMERICAN HISTORY TEACHER Ot V81.5 04/17/2014 ASHANTI ROCHELLE M AMERICAN HISTORY TEACHER Ot 339.82 04/20/2014 ASHANTI ROCHELLE M AMERICAN HISTORY TEACHER Ot 339.82 04/20/2014 ASHANTI ROCHELLE M AMERICAN HISTORY TEACHER Ot V81.5 05/01/2014 ASHANTI ROCHELLE M AMERICAN HISTORY TEACHER Ot 339.82 05/02/2014 ASHANTI ROCHELLE Au AMERICAN HISTORY TEACHER Ot 110.1 05/02/2014 ASHANTI ROCHELLE M AMERICAN HISTORY TEACHER Ot 530.81 05/02/2014 ASHANTI ROCHELLE M AMERICAN HISTORY TEACHER Ot 789.00 05/02/2014 ASHANTI ROCHELLE Au AMERICAN HISTORY TEACHER Ot 790.6 05/29/2014 ASHANTI MENDES, ROCHELLE 786.2 COUGH 05/29/2014 SAMMIE SAMANIEGOA 786.2 COUGH 05/29/2014 ASHANTI MENDES, ROCHELLE 786.2 COUGH 05/29/2014 SERA SAMANIEGO 786.2 COUGH 05/29/2014 ASHANTI MENDES, ROCHELLE 786.2 COUGH 06/04/2014 ASHANTI AMERICAN HISTORY TEACHER, ROCHELLE 356.9 UNSPECIFIED IDIOPATHIC PERIPHERAL NEUROPATHY 06/04/2014 ASHANTI TEJADAN, ROCHELLE 724.2 LUMBAGO 06/04/2014 ASHANTI AMERICAN HISTORY TEACHER, ROCHELLE 724.4 THORACIC OR LUMBOSACRAL NEURITIS OR RADICULITIS UNSPECIFIED 06/04/2014 SAMMIE SAMANIEGOA 356.9 UNSPECIFIED IDIOPATHIC PERIPHERAL NEUROPATHY 06/04/2014 SAMMIE SAMANIEGOA 724.2 LUMBAGO 06/04/2014 SERA SAMANIEGO 724.4 THORACIC OR LUMBOSACRAL NEURITIS OR RADICULITIS UNSPECIFIED 06/04/2014 ROCHELLE BURRELL APRN 356.9 UNSPECIFIED IDIOPATHIC PERIPHERAL NEUROPATHY 06/04/2014 ROCHELLE BURRELL APRN 724.2 LUMBAGO 06/04/2014 ROCHELLE BURRELL APRN 724.4 THORACIC OR LUMBOSACRAL NEURITIS OR RADICULITIS UNSPECIFIED 06/15/2014 Ot 571.8 06/15/2014 Ot 787.91 06/15/2014 Ot 789.00 06/15/2014 Ot 620.2 06/15/2014 Ot V58.69 06/15/2014 Ot V58.83 06/15/2014 Ot 296.33 06/15/2014 Ot 530.81 06/15/2014 Ot 553.3 06/15/2014 Ot 571.8 06/15/2014 Ot 722.93 06/15/2014 Ot 787.20 06/15/2014 Ot 789.36 06/15/2014 Ot V72.84 06/15/2014 Ot 793.89 06/15/2014 Ot V76.12 06/15/2014 Ot 793.89 06/15/2014 ROCHELLE BURRELL AMERICAN HISTORY TEACHER Ot 339.82 06/15/2014 ROCHELLE BURRELL AMERICAN HISTORY TEACHER Ot V81.5 06/15/2014 ROCHELLE BURRELL AMERICAN HISTORY TEACHER Ot 339.82 06/15/2014 ROCHELLE BURRELL AMERICAN HISTORY TEACHER Ot 110.1 06/15/2014 ROCHELLE BURRELL AMERICAN HISTORY TEACHER Ot 530.81 06/15/2014 ROCHELLE BURRELL AMERICAN HISTORY TEACHER Ot 789.00 06/15/2014 ROCHELLE BURRELL AMERICAN HISTORY TEACHER Ot 790.6 06/21/2014 ROCHELLE BURRELL APRN V72.69 OTHER LABORATORY EXAMINATION 07/18/2017 Ot V72.84 EXAM PRE- OPERATIVE NOS 07/18/2017 Ot 793.89 OTH (ABN) FINDINGS ON RADIOLOGICAL EXAMI 07/18/2017 Ot V76.12 OTH SCREEN MAMMO-MALIGN NEOPLASM OF [place]OREN[place] 07/18/2017 Ot 793.89 OTH (ABN) FINDINGS ON RADIOLOGICAL EXAMI 07/18/2017 ROCHELLE BURRELL AMERICAN HISTORY TEACHER Ot 339.82 HEADACHE ASSOCIATED WITH SEXUAL ACTIVITY 07/18/2017 ROCHELLE BURRELL AMERICAN HISTORY TEACHER Ot V81.5 SCREEN FOR NEPHROPATHY 07/18/2017 ASHANTI ROCHELLE M AMERICAN HISTORY TEACHER Ot 339.82 HEADACHE ASSOCIATED WITH SEXUAL ACTIVITY 07/18/2017 ROCHELLE BURRELL AMERICAN HISTORY TEACHER Ot 110.1 DERMATOPHYTOSIS OF NAIL 07/18/2017 ROCHELLE BURRELL AMERICAN HISTORY TEACHER Ot 530.81 ESOPHAGEAL REFLUX 07/18/2017 ROCHELLE BURRELL AMERICAN HISTORY TEACHER Ot 789.00 ABDOMINAL PAIN, UNSPECIFIED SITE 07/18/2017 ROCHELLE BURRELL AMERICAN HISTORY TEACHER Ot 790.6 ABN BLOOD CHEMISTRY NEC 07/18/2017 ROCHELLE BURRELL AMERICAN HISTORY TEACHER Ot 724.4 LUMBOSACRAL NEURITIS NOS 07/18/2017 FRANCINE HOOD AMERICAN HISTORY TEACHER Ot E11.10 TYPE 2 DIABETES MELLITUS WITH KETOACIDOS 07/18/2017 FRANCINE HOOD AMERICAN HISTORY TEACHER Ot E11.65 TYPE 2 DIABETES MELLITUS WITH HYPERGLYCE 07/18/2017 FRANCINE HOOD AMERICAN HISTORY TEACHER Ot J45.909 UNSPECIFIED ASTHMA, UNCOMPLICATED 07/18/2017 FRANCINE HOOD AMERICAN HISTORY TEACHER Ot Z79.4 MCC (CURRENT) USE OF INSULIN 07/18/2017 FRANCINE HOOD AMERICAN HISTORY TEACHER Ot Z88.0 ALLERGY STATUS TO PENICILLIN 07/18/2017 FRANCINE HOOD AMERICAN HISTORY TEACHER Ot Z88.1 ALLERGY STATUS TO OTHER ANTIBIOTIC AGENT 07/18/2017 FRANCINE HOOD AMERICAN HISTORY TEACHER Ot Z88.8 ALLERGY STATUS TO OT DRUG/MEDS/BIOL SUB 07/18/2017 Ot V72.84 EXAM PRE- OPERATIVE NOS 07/18/2017 Ot 793.89 OTH (ABN) FINDINGS ON RADIOLOGICAL EXAMI 07/18/2017 Ot V76.12 OTH SCREEN MAMMO-MALIGN NEOPLASM OF [place]EN[place] 07/18/2017 Ot 793.89 OTH (ABN) FINDINGS ON RADIOLOGICAL EXAMI 07/18/2017 ROCHELLE BURRELL AMERICAN HISTORY TEACHER Ot 339.82 HEADACHE ASSOCIATED WITH SEXUAL ACTIVITY 07/18/2017 ROCHELLE BURRELL AMERICAN HISTORY TEACHER Ot V81.5 SCREEN FOR NEPHROPATHY 07/18/2017 ROCHELLE BURRELL AMERICAN HISTORY TEACHER Ot 339.82 HEADACHE ASSOCIATED WITH SEXUAL ACTIVITY 07/18/2017 ROCHELLE BURRELL AMERICAN HISTORY TEACHER Ot 110.1 DERMATOPHYTOSIS OF NAIL 07/18/2017 ROCHELLE BURRELL AMERICAN HISTORY TEACHER Ot 530.81 ESOPHAGEAL REFLUX 07/18/2017 ROCHELLE BURRELL AMERICAN HISTORY TEACHER Ot 789.00 ABDOMINAL PAIN, UNSPECIFIED SITE 07/18/2017 ROCHELLE BURRELL AMERICAN HISTORY TEACHER Ot 790.6 ABN BLOOD CHEMISTRY NEC 07/18/2017 ROCHELLE BURRELL AMERICAN HISTORY TEACHER Ot 724.4 LUMBOSACRAL NEURITIS NOS 07/20/2017 FRANCINE HOOD AMERICAN HISTORY TEACHER Ot E11.10 TYPE 2 DIABETES MELLITUS WITH KETOACIDOS 07/20/2017 FRANCINE HOOD AMERICAN HISTORY TEACHER Ot E11.65 TYPE 2 DIABETES MELLITUS WITH HYPERGLYCE 07/20/2017 FRANCINE HOOD AMERICAN HISTORY TEACHER Ot J45.909 UNSPECIFIED ASTHMA, UNCOMPLICATED 07/20/2017 FRANCINE HOOD AMERICAN HISTORY TEACHER Ot 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 07/20/2017 FRANCINE HOOD AMERICAN HISTORY TEACHER Ot Z88.0 ALLERGY STATUS TO PENICILLIN 07/20/2017 FRANCINE HOOD AMERICAN HISTORY TEACHER Ot Z88.1 ALLERGY STATUS TO OTHER ANTIBIOTIC AGENT 07/20/2017 FRANCINE HOOD AMERICAN HISTORY TEACHER Ot Z88.8 ALLERGY STATUS TO OTH DRUG/MEDS/BIOL SUB 07/20/2017 Ot V72.84 EXAM PRE- OPERATIVE NOS 07/20/2017 Ot 793.89 OTH (ABN) FINDINGS ON RADIOLOGICAL EXAMI 07/20/2017 Ot V76.12 OTH SCREEN MAMMO-MALIGN NEOPLASM OF [place]ORENZO 07/20/2017 Ot 793.89 OTH (ABN) FINDINGS ON RADIOLOGICAL EXAMI 07/20/2017 ROCHELLE BURRELL AMERICAN HISTORY TEACHER Ot 339.82 HEADACHE ASSOCIATED WITH SEXUAL ACTIVITY 07/20/2017 ROCHELLE BURRELL AMERICAN HISTORY TEACHER Ot V81.5 SCREEN FOR NEPHROPATHY 07/20/2017 ROCHELLE BURRELL AMERICAN HISTORY TEACHER Ot 339.82 HEADACHE ASSOCIATED WITH SEXUAL ACTIVITY 07/20/2017 ROCHELLE BURRELL AMERICAN HISTORY TEACHER Ot 110.1 DERMATOPHYTOSIS OF NAIL 07/20/2017 ROCHELLE BURRELL AMERICAN HISTORY TEACHER Ot 530.81 ESOPHAGEAL REFLUX 07/20/2017 ROCHELLE BURRELL AMERICAN HISTORY TEACHER Ot 789.00 ABDOMINAL PAIN, UNSPECIFIED SITE 07/20/2017 ROCHELLE BURRELL AMERICAN HISTORY TEACHER Ot 790.6 ABN BLOOD CHEMISTRY NEC 07/20/2017 ROCHELLE BURRELL AMERICAN HISTORY TEACHER Ot 724.4 LUMBOSACRAL NEURITIS NOS Procedures Code [place] [address] ROUTINE VENIPUNCTURE 01/06/2012 48801 UA W/ CULTURE IF INDICATED 01/06/2012 87312 HCG QUALITATIVE 01/06/2012 01480 ROUTINE VENIPUNCTURE 03/11/2012 71203 A1C (IN-HOUSE) 03/11/2012 35457 CMP 03/11/2012 4005180 GFR CALC (RESULT ONLY) 03/11/2012 14659 H-PYLORI IGM (RML) 03/13/2012 General S Brent Jimenez 03/14/2012 04410 ROUTINE VENIPUNCTURE 04/01/2012 16733 TSH 04/02/2012 42140 MAMMOGRAM DX, LEFT 04/04/2012 97549 ROUTINE VENIPUNCTURE 05/02/2012 95632 TSH 05/02/2012 00971 SLEEP STUDY 12/14/2012 47366 URINE TEST (IN HOUSE) 03/22/2013 05605 A1C (IN-HOUSE) 03/22/2013 76684 SLEEP STUDY 04/27/2013 97211 US EXAM BREAST(S) 07/05/2013 23984 MAMMOGRAM BOTH BREASTS 07/05/2013 48891 CMP (COMPREHENSIVE METABOLIC PANEL) 07/05/2013 13785 URINE MICROALBUMIN, QUANTITATIVE 07/05/2013 48008 A1C (glycosylated hemoglobin ) 07/05/2013 98434 TSH w/ REFLEX T4 FREE 07/05/2013 59985 HIV-1ANTIBODY 07/05/2013 12906 GLUCOSE FINGER STICK (NON FASTING) IN-HOUSE 10/20/2013 98835 URINALYSIS, DIPSTICK, ( INHOUSE) 11/24/2013 56489 A1C (glycosylated hemoglobin ) 11/24/2013 25987 CMP (COMPREHENSIVE METABOLIC PANEL) 11/24/2013 42045 LIPID PANEL (OUTSIDE LAB) 11/24/2013 03807 URINE MICROALBUMIN, QUANTITATIVE 11/24/2013 78476 FSH (GONADOTROPIN) 11/24/2013 25500 TESTOSTERONE, TOTAL 11/24/2013 59601 INITIAL CONSULT 11/24/2013 28902 A1C (glycosylated hemoglobin ) 01/01/2014 46767 ULTRASOUND, BREAST, RIGHT 01/11/2014 59728 MAMMOGRAM, DIAGNOSTIC, RIGHT BREAST 01/11/2014 68825 US EXAM ABDOM COMPLETE 02/05/[address] HEAD/BRAIN W/O & W/ CONTRAST 03/19/2014 84200 CREATININE, SERUM 03/19/2014 29656 BUN (BLOOD UREA NITROGEN) 03/19/2014 55067 CBC, COMPLETE, W/AUTO DIFF WBC 03/21/2014 22084 CMP (COMPREHENSIVE METABOLIC PANEL) 03/21/2014 50733 INITIAL CONSULT 05/29/2014 61167 MRI LUMBAR SPINE W/O DYE 06/04/2014 90435 NO CHARGE 06/04/2014 58613 CMP (COMPREHENSIVE METABOLIC PANEL) 07/12/2014 79365 A1C (GLYCOSYLATED HEMOGLOBIN ) 07/12/2014 52613 MAGNESIUM, SERUM 07/12/2014 Results Test Result Range Complete blood count (CBC) with automated white blood cell (WBC) differential - 07/18/17 16:00 Blood leukocytes automated count (number/volume) 7.1 10*3/uL 4.3-11.0 Blood erythrocytes automated count (number/volume) 4.12 10*6/uL 4.35-5.85 Venous blood hemoglobin measurement (mass/volume) 12.4 g/dL 11.5-16.0 Blood hematocrit (volume fraction) 36 % 35-52 Automated erythrocyte mean corpuscular volume 87 [foz_us] 80-99 Automated erythrocyte mean corpuscular hemoglobin (mass per erythrocyte) 30 pg 25-34 Automated erythrocyte mean corpuscular hemoglobin concentration measurement ( mass/volume) 35 g/dL 32-36 Automated erythrocyte distribution width ratio 12.6 % 10.0-14.5 Automated blood platelet count (count/volume) 235 10*3/uL 130-400 Automated blood platelet mean volume measurement 10.5 [foz_us] 7.4-10.4 Automated blood neutrophils/100 leukocytes 51 % 42-75 Automated blood lymphocytes/100 leukocytes 41 % 12-44 Blood monocytes/100 leukocytes 6 % 0-12 Automated blood eosinophils/100 leukocytes 1 % 0-10 Automated blood basophils/100 leukocytes 1 % 0-10 Blood neutrophils automated count (number/volume) 3.6 10*3 1.8-7.8 Blood lymphocytes automated count (number/volume) 2.9 10*3 1.0-4.0 Blood monocytes automated count (number/volume) 0.4 10*3 0.0-1.0 Automated eosinophil count 0.1 10*3/uL 0.0-0.3 Automated blood basophil count (count/volume) 0.1 10*3/uL 0.0-0.1 Complete urinalysis with reflex to culture - 07/18/17 16:00 Urine color determination YELLOW NRG Urine clarity determination CLEAR NRG Urine pH measurement by test strip 6.5 5-9 Specific gravity of urine by test strip 1.010 1.016- 1.022 Urine protein assay by test strip, semi-quantitative 1+ NEGATIVE Urine glucose detection by automated test strip 4+ NEGATIVE Erythrocytes detection in urine sediment by light microscopy NEGATIVE NEGATIVE Urine ketones detection by automated test strip NEGATIVE NEGATIVE Urine nitrite detection by test strip POSITIVE NEGATIVE Urine total bilirubin detection by test strip NEGATIVE NEGATIVE Urine urobilinogen measurement by automated test strip (mass/volume) NORMAL NORMAL Urine leukocyte esterase detection by dipstick NEGATIVE NEGATIVE Automated urine sediment erythrocyte count by microscopy (number/high power field) NONE NRG Automated urine sediment leukocyte count by microscopy (number/high power field ) [HPF] NRG Bacteria detection in urine sediment by light microscopy TRACE NRG Squamous epithelial cells detection in urine sediment by light microscopy 0-2 NRG Crystals detection in urine sediment by light microscopy NONE NRG Casts detection in urine sediment by light microscopy NONE NRG Mucus detection in urine sediment by light microscopy NEGATIVE NRG Complete urinalysis with reflex to culture YES NRG Comprehensive metabolic panel - 07/18/17 16:00 Serum or plasma sodium measurement (moles/volume) 129 mmol/L 135-145 Serum or plasma potassium measurement (moles/volume) 4.6 mmol/L 3.6-5.0 Serum or plasma chloride measurement (moles/volume) 93 mmol/L 98-107 Carbon dioxide 20 mmol/L 21-32 Serum or plasma anion gap determination (moles/volume) 16 mmol/L 5-14 Serum or plasma urea nitrogen measurement (mass/volume) 15 mg/dL 7-18 Serum or plasma creatinine measurement (mass/volume) 1.53 mg/dL 0.60-1.30 Serum or plasma urea nitrogen/creatinine mass ratio 10 NRG Serum or plasma creatinine measurement with calculation of estimated glomerular filtration rate 36 NRG Serum or plasma glucose measurement (mass/volume) 666 mg/dL 70-105 Serum or plasma calcium measurement (mass/volume) 9.8 mg/dL 8.5-10.1 Serum or plasma total bilirubin measurement (mass/volume) 0.4 mg/dL 0.1-1.0 Serum or plasma alkaline phosphatase measurement (enzymatic activity/volume) 68 U/L 40-136 Serum or plasma aspartate aminotransferase measurement (enzymatic activity/ volume) 32 U/L 5-34 Serum or plasma alanine aminotransferase measurement (enzymatic activity/volume ) 55 U/L 0-55 Serum or plasma protein measurement (mass/volume) 7.7 g/dL 6.4-8.2 Serum or plasma albumin measurement (mass/volume) 4.6 g/dL 3.2-4.5 Bacterial urine culture - 07/18/17 16:00 URINE CULTURE RESULTS MORE THAN 3 ISOLATES NRG Capillary blood glucose measurement by glucometer (mass/volume) - 07/18/17 16: 08 Capillary blood glucose measurement by glucometer (mass/volume) 539 mg/dL 70-110 Whole blood basic metabolic panel - 07/18/17 18:15 Serum or plasma sodium measurement (moles/volume) 133 mmol/L 135-145 Serum or plasma potassium measurement (moles/volume) 4.0 mmol/L 3.6-5.0 Serum or plasma chloride measurement (moles/volume) 99 mmol/L 98-107 Carbon dioxide 20 mmol/L 21-32 Serum or plasma anion gap determination (moles/volume) 14 mmol/L 5-14 Serum or plasma urea nitrogen measurement (mass/volume) 13 mg/dL 7-18 Serum or plasma creatinine measurement (mass/volume) 1.14 mg/dL 0.60-1.30 Serum or plasma urea nitrogen/creatinine mass ratio 11 NRG Serum or plasma creatinine measurement with calculation of estimated glomerular filtration rate 50 NRG Serum or plasma glucose measurement (mass/volume) 507 mg/dL 70-105 Serum or plasma calcium measurement (mass/volume) 8.8 mg/dL 8.5-10.1 Capillary blood glucose measurement by glucometer (mass/volume) - 07/18/17 19: 22 Capillary blood glucose measurement by glucometer (mass/volume) 402 mg/dL 70-110 THYROID ANALYZER - 09/21/17 11:10 TSH 1.22 mIU/L NRG Encounters ACCT No. Visit Date/Time Discharge Status Pt. Type Provider Facility Loc./Unit Complaint [id number] 09/21/2012 15:27:00 09/21/2012 23:59:59 CLS Outpatient TERRY ISBELL GAUDENCIO K [id number] 05/06/2012 11:09:00 05/06/2012 23:59:59 CLS Outpatient [id number] 05/02/2012 10:49:00 05/02/2012 23:59:59 CLS Outpatient GAUDENCIO STEWART DO [id number] 04/01/2012 13:43:00 04/01/2012 23:59:59 CLS Outpatient [id number] 04/01/2012 13:43:00 04/01/2012 23:59:59 CLS Outpatient GAUDENCIO STEWART DO [id number] 03/18/2012 07:53:00 03/18/2012 23:59:59 CLS Outpatient LESLIE GUTIERREZ DDS [id number] 03/14/2012 16:33:00 03/14/2012 23:59:59 CLS Outpatient [id number] 03/11/2012 09:14:00 03/11/2012 23:59:59 CLS Outpatient GAUDENCIO STEWART DO [id number] 03/11/2012 09:14:00 03/11/2012 23:59:59 CLS Outpatient GAUDENCIO STEWART DO [id number] 02/15/2012 13:30:00 02/15/2012 23:59:59 CLS Outpatient GAUDENCIO STEWART DO [id number] 01/06/2012 15:11:00 01/06/2012 23:59:59 CLS Outpatient GAUDENCIO STEWART DO [id number] 07/18/2017 15:50:00 07/18/2017 19:58:00 DIS Emergency FRANCINE HOOD APRN [facility] ER BLOOD SUGAR HIGH [id number] 06/15/2014 15:12:00 06/15/2014 23:59:59 CLS Outpatient ROCHELLE BURRELL APRN [facility] RAD LUMBOSACRAL NEURITIS/ RADICULITIS [id number] 04/11/2014 09:24:00 04/11/2014 23:59:59 CLS Outpatient ROCHELLE BURRELL [employer] [facility] RAD ABD PAINN, DERMATROPHTYSOS OF NAIL, ABD BLOOD [id number] 03/26/2014 08:12:00 03/26/2014 23:59:59 CLS Outpatient ROCHELLE BURRELL APRN [facility] RAD HEADACHES [id number] 03/23/2014 16:07:00 03/23/2014 23:59:59 CLS Outpatient ROCHELLE BURRELL [employer] [facility] RAD HEADACHES [id number] 03/02/2013 20:03:00 03/03/2013 06:20:00 DIS Outpatient PENELOPE WEINSTEIN [facility] SLEEP SNORING [id number] 08/22/2012 03:35:00 08/22/2012 06:04:00 DIS Emergency FRANCY MADISON MD [facility] ER SWOLLEN THROAT [id number] 03/21/2014 15:33:00 Document Registration [id number] 03/21/2014 15:33:00 Document Registration [id number] 04/20/2012 07:36:00 Document Registration [id number] 04/06/2012 15:21:00 Document Registration [id number] 03/30/2012 12:17:00 Document Registration [id number] 03/22/2012 10:44:00 Document Registration [id number] 11/24/2011 11:03:00 Document Registration [id number] 04/03/2011 17:03:00 Document Registration [id number] 01/09/2011 17:19:00 Document Registration [id number] 11/27/2010 17:12:00 Document Registration [id number] 07/11/2010 13:32:00 Document Registration [id number] 11/22/2009 09:25:00 Document Registration [id number] 11/08/2009 07:27:00 Document Registration [id number] 02/11/2009 08:46:00 Document Registration [id number] 09/21/2017 10:20:00 09/21/2017 23:59:59 CLS [facility] [id number] 09/21/2017 10:20:00 Document Registration [id number] 07/12/2014 15:12:00 07/12/2014 23:59:59 CLS Outpatient [place]HELLE BURRELL APRN [id number] 06/04/2014 15:08:00 06/04/2014 23:59:59 CLS Outpatient SERA SAMANIEGO [id number] 06/04/2014 14:38:00 06/04/2014 23:59:59 CLS Outpatient ROCHELLE BURRELL APRN [id number] 05/29/2014 16:02:00 05/29/2014 23:59:59 CLS Outpatient SERA SAMANIEGO [id number] 05/29/2014 13:44:00 05/29/2014 23:59:59 CLS Outpatient ROCHELLE BURRELL APRN [id number] 04/17/2014 13:38:00 04/17/2014 23:59:59 [place] [id number] 03/19/2014 13:55:00 03/19/2014 23:59:59 CLS Outpatient ROCHELLE BURRELL APRN [id number] 02/05/2014 13:51:00 02/05/2014 23:59:59 CLS Outpatient ROCHELLE BURRELL APRN [id number] 01/01/2014 16:54:00 01/01/2014 23:59:59 [place] [id number] 11/24/2013 14:17:00 11/24/2013 23:59:59 CLS Outpatient BRENT HYLTON [id number] 11/24/2013 13:02:00 11/24/2013 23:59:59 [place] [id number] 10/20/2013 11:15:00 10/20/2013 23:59:59 CLS Outpatient ROCHELLE BURRELL APRN [id number] 10/20/2013 11:15:00 10/20/2013 23:59:59 CLS Outpatient ROCHELLE BURRELL APRN [id number] 09/11/2013 14:19:00 09/11/2013 23:59:59 CLS Outpatient ROCHELLE BURRELL APRN [id number] 07/05/2013 14:16:00 07/05/2013 23:59:59 CLS Outpatient [place]IROCHELLE CARTER APRN [id number] 07/05/2013 14:16:00 07/05/2013 23:59:59 CLS Outpatient ASHANTI ROCHELLE MENDES [id number] 04/27/2013 14:50:00 04/27/2013 23:59:59 [place] [id number] 03/22/2013 14:41:00 03/22/2013 23:59:59 CLS Outpatient ASHANTI ROCHELLE MENDES [id number] 12/07/2012 14:09:00 12/07/2012 23:59:59 CLS Outpatient PENELOEP WEINSTEIN [id number] 07/20/2012 13:53:00 07/20/2012 23:59:59 CLS Outpatient MICHAEL NEWMAN APRN [id number] 06/15/2014 15:12:54 ACT Document Registration
== END 2017-10-11 16:30 | disposition home or self-care (01) ==
LOC: EDUNIT# 14:01 → ER 14:03
DX: H65.91 Unspecified nonsuppurative otitis media, right ear (principal); R51 Headache; R07.89 Other chest pain; E11.65 Type 2 diabetes mellitus with hyperglycemia; J44.9 Chronic obstructive pulmonary disease, unspecified; I25.10 Atherosclerotic heart disease of native coronary artery without angina pectoris; Z88.0 Allergy status to penicillin; Z79.4 Long term (current) use of insulin; Z90.89 Acquired absence of other organs; Z87.19 Personal history of other diseases of the digestive system; Z88.8 Allergy status to other drugs, medicaments and biological substances; Z88.1 Allergy status to other antibiotic agents
CPT/HCPCS: 36415; 80053; 81000; 83690; 85025; 99285

== ENCOUNTER 2018-10-09 11:08 | Emergency (ER) | payer OTHER, MEDICARE | END 2018-10-09 13:31 | disposition home or self-care (01) | LOC: ER 11:08 ==

== ENCOUNTER → 2019-04-28 | Outpatient (CLI) | payer OTHER, MEDICARE ==
--- NOTE | 2019-04-28 16:35 | Diagnostic Imaging Report ---
PROCEDURE: US Thyroid. TECHNIQUE: Multiple real-time grayscale images were obtained of the thyroid in various projections. INDICATION: Thyroid nodules. FINDINGS: Right thyroid lobe is enlarged, heterogeneous, and measures 5.6 x 2.3 x 2.6 cm. A mid pole nodule well defined, solid and vascularized is heterogeneous with areas of hyper and hypoechogenicity measuring 2.2 cm maximal. Calcified nodule just less than 1 cm in the lower pole present. A solid hyperechoic nodule at the midline isthmus measures 1.4 x 1.4 cm. Isthmus measures 1.4 cm in AP thickness. Left thyroid lobe is enlarged, heterogeneous, and measures 5.4 x 1.6 x 1.7 cm. It contains a 9 mm hyperechoic lower pole nodule. IMPRESSION: Bilateral thyroid masses, the largest lesion 2.2 cm in the right mid pole, mixed hyper and hypoechogenic without suspicious calcifications or extrathyroidal extension. This is a TI-RADS 4 level lesion and given its size of 2.2 cm maximal, biopsy with sonographic fine-needle aspiration recommended. Remaining lesions TI-RADS 3 and lower. Dictated by: Dictated on workstation # [id number]
== END ==
LOC: RAD 12:01
DX: E04.2 Nontoxic multinodular goiter (principal); M47.812 Spondylosis without myelopathy or radiculopathy, cervical region
CPT/HCPCS: 76536

== ENCOUNTER → 2022-02-05 | Outpatient (CLI) | payer MEDICARE, OTHER ==
--- NOTE | 2022-02-05 16:44 | Diagnostic Imaging Report ---
PROCEDURE: US Thyroid. TECHNIQUE: Multiple real-time grayscale images were obtained of the thyroid in various projections. INDICATION: Thyroid nodule COMPARISON: 04/28/2019 FINDINGS: Right thyroid lobe: The right thyroid lobe measures 5.5 x 2.1 x 1.8 cm. Multiple nodules throughout the right thyroid are again noted. In the mid right thyroid there is a mixed solid and cystic nodule which is isoechoic, has circumscribed margins and no echogenic foci. This measures up to 2.3 cm on today's examination (previously 2.2 cm), TI RADS 2. The more posterior rim calcified isoechoic nodule measuring 0.8 cm is stable, TI RADS 3. Isthmus: The thyroid isthmus measures 1.2 cm and has a unchanged solid, isoechoic, wider than tall nodule measuring up to 1.7 cm (previously 1.4 cm), TI RADS 3. Left thyroid lobe: The left thyroid lobe measures 5.7 x 1.5 x 1.6 cm. The solid, rounded hyperechoic nodule with smooth margins is stable measuring 1.0 cm (previously 0.9 cm), TI RADS 3. IMPRESSION:No significant change in the bilateral mildly suspicious thyroid nodules. Given size and stability these are probably benign, and a followup ultrasound in 3 years could be performed to document 5 year stability. ACR TI-RADS: TR3 . TI-RADS Recommendations:TR3 - Mildly Suspicious. FNA if > 2.5 cm. Follow if > 1.5 cm at 1, 3, 5 years. Dictated by: Dictated on workstation # [id number]
== END ==
LOC: RAD 11:44
DX: E04.2 Nontoxic multinodular goiter (principal)
CPT/HCPCS: 76536